=== PATIENT | female | born 1935 | race Caucasian/White ===

== ENCOUNTER → 2017-03-09 07:01 | Day surgery (SDC) | payer MEDICARE, OTHER ==
--- NOTE | 2017-03-07 22:30 | HP ---
ADMISSION HISTORY AND PHYSICAL: DATE OF ADMISSION: 03/09/17 - [facility] ATTENDING SURGEON: Dr. Danny Mayfield. (dictated by PARKER Maravilla) CHIEF COMPLAINT: Right breast lesion. HISTORY OF PRESENT ILLNESS: This is an 81-year-old female who was referred from Dr. Velázquez for evaluation of a right breast mass. This was apparently discovered on a mammogram in June of 2016. She subsequently underwent ultrasound and then a stereotactic biopsy on 07/21/16, which showed no malignant cells. She has had repeat ultrasounds, the most recent being from . This showed a multiseptated cyst in the right breast at the 10 o'clock position, approximately 10 cm from the nipple, measuring 1.1 x 0.7 x 1.3 cm. The radiologist indicated that there was some definite growth in size of the lesion compared with the last two ultrasounds. There was apparently a biopsy marker clip placed at the time of her stereotactic biopsy; however, subsequent notes indicate that this is approximately 4 cm posterior to the biopsy area. The patient has had no symptoms regarding the right breast. She has not had any prior breast biopsies and there is no family history of breast cancer. She was seen in the office by Dr. Mayfield on 02/15/17. His exam was unremarkable, with no palpable masses bilaterally in either breast, and no palpable adenopathy. He has discussed with her the options, including ongoing surveillance and/or repeat stereotactic biopsy. She understands the indications for this surgery as well as the risks, benefits, and alternatives, and potential need for additional surgery. She would like to proceed as scheduled with excision of right breast mass (following needle localization). PAST MEDICAL HISTORY: Paroxysmal atrial fibrillation (she is typically in sinus rhythm most of the time), hypertension, hyperlipidemia. PAST SURGICAL HISTORY: Bilateral total knee arthroplasty in 2003, x2 , right carpal tunnel release, bilateral cataract surgery, bilateral retinal surgeries, sinus surgery, and surgery for a hydatidiform mole. No reported surgical or anesthesia problems. CURRENT MEDICATIONS: 1. Propafenone ER 425 mg b.i.d. 2. Coumadin 2 mg 2 tablets daily on Mondays and Fridays, 3 tablets daily on all other days (the patient is instructed by Dr. Velázquez's office to hold after her 03/04/17 dose). 3. Simvastatin 20 mg daily. 4. Aldactazide 25/25 one tablet q.p.m. 5. Cozaar 100 mg daily. 6. Glucosamine chondroitin 2 to 3 tablets daily. 7. Lawrence-3 fish oil 1 tablet once daily. 8. Vitamin D 2000 IU once daily. 9. Multivitamin once daily. 10. PreserVision 1 tablet b.i.d. 11. Coenzyme Q10 200 mg daily. ALLERGIES: She reports no allergies. Dr. Velázquez's office notes indicate cough reaction from FABRICIO INH[employer]OR and airway irritation from an inhaled CEPHALOSPORIN in the past. FAMILY HISTORY: Negative for anesthesia problems, bleeding or clotting disorders. SOCIAL HISTORY: The patient is . 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 She denies tobacco use. Drinks less than one alcoholic drink per day and denies other recreational drug use. REVIEW OF SYSTEMS: General: No recent constitutional symptoms or acute illnesses. She does report about a 15-pound weight loss over the past 5 years, largely related to stress related to care of her , as well as some decreased appetite. Cardiovascular: No recent chest pain, palpitations, history of lightheadedness or syncope. She follows yearly with Dr. Read. Echocardiogram from last year was essentially normal. Respiratory: No history of asthma, chronic cough or shortness of breath. GI: No upper GI symptoms. Colonoscopy done within the past 10 years or so. She did have an episode of rectal bleeding about an year ago and has undergone sigmoidoscopy with removal of polyp by Dr. Vallejo, and with no further bleeding episodes. : No problems reported. 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 She no longer has Pap smears done. No additional symptoms reported. Endocrine: No diabetes or thyroid dysfunction. PHYSICAL EXAMINATION GENERAL: Well-nourished, somewhat obese female, in no acute distress. VITAL SIGNS: Height 63 inches, weight 190 pounds, blood pressure 104/62, pulse 58, respirations 16. HEENT: Pupils equal, round, and reactive. EOMs intact. No conjunctival pallor. Oropharynx, full upper dentures. No intraoral lesions. NECK: No lymphadenopathy, thyromegaly or masses. LUNGS: Clear to auscultation. No rales or wheezes. HEART: Regular rate and rhythm. No murmur appreciated. BREASTS: Not reexamined today. ABDOMEN: Well healed surgical scar. Soft, nontender to palpation. No palpable masses or organomegaly. GENITALIA AND RECTAL: Not done. BACK: No spinous process or CVA tenderness. EXTREMITIES: No edema. NEUROLOGICAL: Grossly intact. SKIN: Warm and dry. No suspicious rashes or lesions noted (of note, on her visit with Dr. Mayfield, she was also referred for evaluation of a skin lesion on the left shoulder area, which was subsequently excised showing basal cell carcinoma with clear margins. See separate report). That area is healing well. IMPRESSION: Right breast mass. PLAN: Excision right breast mass (after needle localization). PARKER FIELDS CC: Edgar Velázquez MD.* [id number]/[facility] #: [id number] MTDD
[~2017-03-09 07:01] MED LIST: Buffered Lidocaine 1% SYRIN* 3 ML/SYR SYRINGE INTRADERM ONE; Bupivacaine 0.5% W/EPI SDV* 30 ML VIAL ONE; Dexamethasone IV* 4 MG/ML 1 ML (4 MG) ONE; Famotidine IV* 10 MG/ML 2 ML (20 mg) ONE; Famotidine TAB* 20 MG PO ONE; KETAMINE HCL* 50 MG/ML 10 ML VIAL ONE; Lidocaine 1% INJ* 10 MG/ML 30 ML SDV ONE; Lidocaine 2% PF* 5 ML VIAL ONE; Midazolam* 1 MG/ML 5 ML VIAL (5 MG) ONE; Morphine INJ* 2 MG/ML 1 ML SYRINGE IV PRN; Ondansetron INJ* 2 MG/ML VIAL ONE; PROCHLORPERAZINE INJ 5 MG/ML 2 ML VIAL IV PRN; Propofol* 10 MG/ML 20 ML BTL IV PUSH ONE; ceFAZolin 2 GM PREMIX(*) 2 GM/50 ML BAG IVPB ONE; fentaNYL* 50 MCG/ML 2 ML VIAL (100 MCG VIAL) IV PRN; fentaNYL* 50 MCG/ML 2 ML VIAL (100 MCG VIAL) ONE; oxyCODONE/Acetamin 5/325 MG* TAB PO PRN
--- NOTE | 2017-03-09 09:00 | RAD ---
INDICATION: Recurrent right breast cyst COMPARISON: Right breast sonogram January 13, 2017; right breast mammogram July 21, 2016 TECHNIQUE: Informed consent was obtained. A routine timeout procedure was called. The right breast was prepped in usual fashion and following infiltration with lidocaine for local anesthesia a 7.5 cm Tesfaye wire was placed medially adjacent to the lesion as confirmed sonographically. A mammogram was obtained which showed that the wire had backed out slightly from the lesion and was 1 cm anterior to the lesion. The patient tolerated the procedure well. There were no procedural complications. The specimen radiograph is pending. IMPRESSION: SUCCESSFUL WIRE NEEDLE LOCALIZATION OF THE COMPLEX CYST IN THE RIGHT BREAST PRIOR TO SURGICAL EXCISION. Assessment: ACR BI-RADS Category 4: Suspicious PT Reminder: CPT II Codes: 7025F Follow-up: Biopsy [employer] recommend annual screening mammography beginning at age 40.
[2017-03-09 14:10] VITALS: BP 124/64
--- NOTE | 2017-03-10 07:12 | OP ---
DATE OF OPERATION: 03/09/17 [facility] DATE OF : 33 SURGEON: Danny Mayfield MD ANESTHESIOLOGIST: Dr. Lopes. ANESTHESIA: LMAC anesthesia. PRE-OP DIAGNOSIS: Lesion of right breast. POST-OP DIAGNOSIS: Lesion of right breast. OPERATIVE PROCEDURE: Needle localizing excision of lesion of right breast. ESTIMATED BLOOD LOSS: Less than 20 mL. DESCRIPTION OF PROCEDURE: The patient was supine on the operative table. After adequate intravenous sedation, compression stockings, Claudia Hugger warmer, and intravenous antibiotics; the right breast was prepped with antiseptic; and draped in a sterile fashion. Local infiltrative anesthesia was administered. Approximately 4 to 5 cm incision was created and a piece of breast tissue approximately 4 x 4 x 3 cm in size was removed. This seemed to me that it was a little close to the area where the mass was, so an additional piece of deep and somewhat medial tissue was removed and sent with a suture marking true margin. X- ray confirmed excision of the lesion. Hemostasis was obtained using electro-cautery, and incision was closed with 3-0 and 5-0 Vicryl followed by Steri-Strips and a gauze dressing. She tolerated the procedure well, was brought to the Recovery in good condition. No complications. No drains. Pathologic specimen as above. Sponge and instrument counts correct. CC: Danny Mayfield MD; Edgar Velázquez MD* [id number]/[facility] #: [id number] MTDD
== END | disposition home or self-care (01) ==
LOC: SDS 07:01
PROVIDERS: ATTEND Surgery
DX: N63 Unspecified lump in breast (principal); I48.2 Chronic atrial fibrillation; Z79.01 Long term (current) use of anticoagulants; I10 Essential (primary) hypertension; I35.0 Nonrheumatic aortic (valve) stenosis; I07.1 Rheumatic tricuspid insufficiency
CPT/HCPCS: 36415; 85610; 88307; G0206-RT; J0690; J1100; J2001; J2250; J2405; J2704; J3010

== ENCOUNTER 2017-07-12 09:25 | Day surgery (SDC) | payer MEDICARE, OTHER ==
--- NOTE | 2017-07-10 10:30 | HP ---
CC: Dr. Alexis Beaulieu; Dr. Bora Ayala ADMITTING HISTORY AND PHYSICAL: DATE OF ADMISSION: 07/12/17 ADMITTING DIAGNOSES: 1. Gross hematuria. 2. Calculus, left proximal ureter. PLANNED PROCEDURE: Left retrograde and left stent insertion (to be followed in the near future by s hockwave lithotripsy). SURGEON: Bora Ayala MD. HISTORY OF PRESENT ILLNESS: Rita Roque is an 81-year-old lady who I had originally evaluated for a n episode of gross hematuria. She is on Coumadin for atrial fibrillation. She had been noted to hav e a 9 mm nonobstructing left renal calculus. At this time, when she presented with recurrence of gr oss hematuria, an x-ray was obtained, which showed that the calculus had migrated into the proximal left ureter. She is now being brought in for left stent insertion and will require lithotripsy in t he near future once she is off the Coumadin. PAST MEDICAL HISTORY: 1. Atrial fibrillation. 2. Hypertension. 3. Hyperlipidemia. MEDICATIONS ON ADMISSION: Include: 1. Coumadin. 2. Aldactazide 25/25 one tablet daily. 3. Simvastatin 20 mg daily. 4. Losartan 1 tablet daily. 5. Celebrex p.r.n. ALLERGIES AND INTOLERANCES: KEFLEX. REVIEW OF SYSTEMS: She denies any chest pain or shortness of breath. There is no history of diabet es mellitus. PAST SURGICAL HISTORY: Significant for x3, appendectomy, and bilateral total knee replace ments. PHYSICAL EXAMINATION GENERAL: Reveals a pleasant elderly lady. VITAL SIGNS: Blood pressure is 134/80, pulse 76 per minute, oxygen saturation 98% on room air. LUNGS: Clear bilaterally. CARDIOVASCULAR: S1, S2. No murmurs. ABDOMEN: Soft, with mild left flank tenderness. IMPRESSION: A 81-year-old lady with recurrent gross hematuria and a 9 mm calculus which appears to have migrated into the proximal left ureter, which I suspect is the cause of the hematuria. PLAN: The plan is for left retrograde and left stent insertion and to push the calculus back into t he left kidney, to be followed by shockwave lithotripsy in the near future. [id number]/[facility] #: [id number]
[~2017-07-12 09:25] MED LIST changes: +Buffered Lidocaine 0.9% SYRIN* 5 ML/SYR SYRINGE INTRADERM ONE; -Buffered Lidocaine 1% SYRIN* 3 ML/SYR SYRINGE INTRADERM ONE; -Bupivacaine 0.5% W/EPI SDV* 30 ML VIAL ONE; +Dexamethasone IV* 4 MG/ML 1 ML (4 MG) IV SLOW PU ONE; -Dexamethasone IV* 4 MG/ML 1 ML (4 MG) ONE; +Famotidine IV* 10 MG/ML 2 ML (20 mg) IV SLOW PU ONE; -Famotidine IV* 10 MG/ML 2 ML (20 mg) ONE; -Famotidine TAB* 20 MG PO ONE; -KETAMINE HCL* 50 MG/ML 10 ML VIAL ONE; -Lidocaine 1% INJ* 10 MG/ML 30 ML SDV ONE; -Lidocaine 2% PF* 5 ML VIAL ONE; -Midazolam* 1 MG/ML 5 ML VIAL (5 MG) ONE; -Morphine INJ* 2 MG/ML 1 ML SYRINGE IV PRN; -Ondansetron INJ* 2 MG/ML VIAL ONE; -PROCHLORPERAZINE INJ 5 MG/ML 2 ML VIAL IV PRN; -Propofol* 10 MG/ML 20 ML BTL IV PUSH ONE; -ceFAZolin 2 GM PREMIX(*) 2 GM/50 ML BAG IVPB ONE; -fentaNYL* 50 MCG/ML 2 ML VIAL (100 MCG VIAL) IV PRN; -fentaNYL* 50 MCG/ML 2 ML VIAL (100 MCG VIAL) ONE; -oxyCODONE/Acetamin 5/325 MG* TAB PO PRN
[2017-07-12] MEDS ORDERED: Dexamethasone IV* 4 MG/ML 1 ML (4 MG) ONE (09:43)
[2017-07-12] MEDS ORDERED: Buffered Lidocaine 0.9% SYRIN* 5 ML/SYR SYRINGE ONE (09:43)
[2017-07-12] MEDS ORDERED: Levofloxacin 500 MG IVPREMIX(* 500 MG/100 ML BAG IVPB ONE (09:43)
[2017-07-12] MEDS ORDERED: Famotidine IV* 10 MG/ML 2 ML (20 mg) ONE (09:43)
[2017-07-12] MEDS ORDERED: fentaNYL* 50 MCG/ML 2 ML VIAL (100 MCG VIAL) IV PRN (10:58)
[2017-07-12] MEDS ORDERED: Ondansetron INJ* 2 MG/ML VIAL IV PRN (10:58)
[2017-07-12] MEDS ORDERED: oxyCODONE/Acetamin 5/325 MG* TAB PO PRN (10:58)
[2017-07-12] MEDS ORDERED: Ondansetron INJ* 2 MG/ML VIAL ONE (11:02)
[2017-07-12] MEDS ORDERED: Propofol* 10 MG/ML 20 ML BTL IV PUSH ONE (11:02)
[2017-07-12] MEDS ORDERED: Midazolam* 1 MG/ML 5 ML VIAL (5 MG) ONE (11:02)
[2017-07-12] MEDS ORDERED: Iohexol 180 (CONTRAST) 10 ML SDV IV ONE ×2 (11:02→11:24)
[2017-07-12] MEDS ORDERED: fentaNYL* 50 MCG/ML 2 ML VIAL (100 MCG VIAL) ONE ×2 (11:02→11:53)
--- NOTE | 2017-07-12 12:39 | RAD ---
INDICATION: Left retrograde examination with stent insertion COMPARISON: KUB July 06, 2017 FINDINGS: 7 seconds of fluoroscopy were provided for the urology department. Fluoroscopic spot imaging of the abdomen were obtained for operative control and show left ureteral stent placement in expected position. A calculus is noted to project over the mid to lower pole left kidney . CPT II Codes: 6045F (fluoro time doc)
[2017-07-12 13:54] VITALS: BP 136/66
[2017-07-12] MEDS ORDERED: Acetaminophen TAB* 325 MG ONE (14:16)
--- NOTE | 2017-07-13 03:14 | OP ---
CC: Alexis Beaulieu MD * DATE OF OPERATION: 07/12/17 - [facility] DATE OF : 33 SURGEON: Bora Ayala MD. ANESTHESIOLOGIST: Dr. Burkett. ANESTHESIA: Spinal. PRE-OP DIAGNOSES: 1. Gross hematuria. 2. Calculus left proximal ureter. POST-OP DIAGNOSES: 1. Gross hematuria. 2. Calculus left proximal ureter. OPERATIVE PROCEDURE: Cystoscopy, left retrograde pyelogram, left ureteral calculus manipulation and left stent insertion. COMPLICATIONS: None. POSTOPERATIVE CONDITION: Stable. STENT USED: A 6-Dominican stent left ureter. INDICATIONS: Rita Roque is an 81-year-old lady with recent history of gross hematuria. My feeling was that this was due to a calculus, which had previously been located in the lower pole of the left kidney moving into the proximal left ureter. She is now being brought in for left stent insertion and will require lithotripsy at a later date. DESCRIPTION OF PROCEDURE: After induction of spinal anesthesia, the patient was placed in dorsal lithotomy position. Sequential compression devices were in place and functioning. Initial cystoscopy revealed a normal-appearing bladder. A guidewire was introduced into the left ureter. The calculus at the level of the ureteropelvic junction was identified with mild fullness of the left collecting system. The calculus was manipulated into the lower pole and a 6-Dominican stent was introduced and positioned under fluoroscopy with good proximal and distal positioning obtained. The patient tolerated the procedure satisfactorily and was transferred back to the recovery area in stable condition. [id number]/[facility] #: [id number] MTDD
== END 2017-07-12 15:06 | disposition home or self-care (01) ==
LOC: OR 09:25
PROVIDERS: ATTEND Urology
DX: N20.1 Calculus of ureter (principal); R31.0 Gross hematuria; I48.91 Unspecified atrial fibrillation; Z79.01 Long term (current) use of anticoagulants; I10 Essential (primary) hypertension; E78.5 Hyperlipidemia, unspecified; Z88.1 Allergy status to other antibiotic agents
CPT/HCPCS: 36415; 74420; 85610; A9270-GY; C1876; J1100; J1956; J2250; J2405; J2704; J3010

== ENCOUNTER 2017-08-07 07:58 | Day surgery (SDC) | payer MEDICARE, OTHER ==
[~2017-08-07 07:58] MED LIST changes: -Dexamethasone IV* 4 MG/ML 1 ML (4 MG) IV SLOW PU ONE; -Famotidine IV* 10 MG/ML 2 ML (20 mg) IV SLOW PU ONE; +NS 0.9% 1000 ML* 1,000 ML IV SCH
[2017-08-07] MEDS ORDERED: Buffered Lidocaine 0.9% SYRIN* 5 ML/SYR SYRINGE ONE (08:19)
--- NOTE | 2017-08-07 08:48 | RAD ---
HISTORY: Shock wave lithotripsy COMPARISONS: July 06, 2017 VIEWS: Frontal views of the abdomen. FINDINGS: BOWEL: There is a nonspecific bowel gas pattern, with nondilated small bowel gas noted. CALCULI: A left ureteral stent is noted. There is a 0.5 cm calculus overlying the lower pole of the left renal parenchymal shadow. BONES AND SOFT TISSUES: Degenerative changes are noted of the spine OTHER FINDINGS: The lung bases are clear. There is no subphrenic gas. IMPRESSION: LEFT NEPHROLITHIASIS WITH A LEFT URETERAL STENT
[2017-08-07] MEDS ORDERED: Levofloxacin 500 MG IVPREMIX(* 500 MG/100 ML BAG IVPB ONE (08:56)
[2017-08-07] MEDS ORDERED: fentaNYL* 50 MCG/ML 2 ML VIAL (100 MCG VIAL) ONE (09:09)
[2017-08-07] MEDS ORDERED: Midazolam* 1 MG/ML 2 ML VIAL (2 MG) ONE (09:09)
[2017-08-07] MEDS ORDERED: DiMENhydriNATE IV* 50 MG/ML VIAL IV PUSH PRN (10:19)
[2017-08-07] MEDS ORDERED: Acetaminophen TAB* 325 MG PO PRN (10:19)
[2017-08-07] MEDS ORDERED: PROCHLORPERAZINE INJ 5 MG/ML 2 ML VIAL IV PRN (10:19)
[2017-08-07] MEDS ORDERED: Dexamethasone IV* 4 MG/ML 1 ML (4 MG) ONE (10:26)
[2017-08-07] MEDS ORDERED: Famotidine IV* 10 MG/ML 2 ML (20 mg) ONE (10:26)
[2017-08-07] MEDS ORDERED: Propofol* 10 MG/ML 20 ML BTL IV PUSH ONE (10:26)
[2017-08-07] MEDS ORDERED: Lidocaine 2% PF * 5 ML VIAL ONE (10:26)
[2017-08-07 12:39] VITALS: BP 129/51
--- NOTE | 2017-08-07 14:27 | RAD ---
INDICATION: Left renal stone COMPARISON: August 07, 2017 TECHNIQUE: A single view of the abdomen is submitted. FINDINGS: Bones: There are no acute bony findings. Soft tissues: The soft tissues appear normal. The psoas margins are sharp. Bowel gas pattern: Normal Calcifications: There is left-sided nephrolithiasis, unchanged. Other: There is left ureteral stent in expected position. IMPRESSION: LEFT-SIDED NEPHROLITHIASIS. LEFT URETERAL STENT.
--- NOTE | 2017-08-07 19:49 | OP ---
CC: Dr. Alexis Beaulieu * DATE OF OPERATION: 08/07/17 - [facility] DATE OF : 33 SURGEON: Bora Ayala MD ANESTHESIOLOGIST: Dr. Pedraza. ANESTHESIA: General. PRE-OP DIAGNOSIS: Left renal calculus. POST-OP DIAGNOSIS: Left renal calculus. OPERATIVE PROCEDURE: Shockwave lithotripsy of left renal calculus. COMPLICATIONS: None. POSTOPERATIVE CONDITION: Stable. INDICATIONS: Rita Roque is an 81-year-old lady who had been evaluated for gross hematuria secondary to a calculus, which appeared to be moving intermittently between the left ureteropelvic junction and the mid pole of the left kidney. She had undergone stent insertion and is now being brought in for lithotripsy. DESCRIPTION OF PROCEDURE: After induction of general anesthesia, patient was placed on the lithotripsy table in supine position. The calculus, which was in the mid to lower pole area of the kidney, was localized using fluoroscopy. Shockwave lithotripsy was commenced at a rate of 60 shocks per minute. After the initial 300 shocks, there was a pause in lithotripsy for several minutes in an effort to minimize any potential trauma to the kidney. Lithotripsy was then resumed. The stone was noted to be fairly hard and did not appear to fragment easily. A total of 2400 shocks were administered. My plan is to obtain a postoperative x-ray to assess the degree of fragmentation before proceeding with stent removal. Patient tolerated the procedure satisfactorily and was transferred back to the recovery area in stable condition. [id number]/[facility] #: [id number] MTDD
== END 2017-08-07 12:39 | disposition home or self-care (01) ==
LOC: OR 07:58
PROVIDERS: ATTEND Urology
DX: N20.0 Calculus of kidney (principal); Z96.0 Presence of urogenital implants; I48.91 Unspecified atrial fibrillation; Z79.01 Long term (current) use of anticoagulants; I10 Essential (primary) hypertension; E78.5 Hyperlipidemia, unspecified; Z88.1 Allergy status to other antibiotic agents
CPT/HCPCS: 74000; J1100; J1956; J2250; J2704; J3010

== ENCOUNTER 2017-08-22 10:00 | Inpatient (IN) | payer MEDICARE, OTHER ==
[2017-08-22 11:52] LABS: Hematocrit 38 % (35-47); Hemoglobin 12.9 g/dl (12.0-16.0); Mean Corpuscular HGB Conc 34 g/dl (31-36); Mean Corpuscular Hemoglobin 33 pg (27-31); Mean Corpuscular Volume 95 fL (80-97); Mean Platelet Volume 8 um3 (7.4-10.4); Red Blood Count 3.95 10^6/ul (4.0-5.4); Red Cell Distribution Width 13 % (10.5-15); White Blood Count 20.9 10^3/ul (3.5-10.8)
[2017-08-22 12:08] LABS: Albumin 3.5 g/dL (3.2-5.2); BUN/Creatinine Ratio 17.3 (8-20); C Reactive Protein 28.49 mg/L (< 5.00); Calcium 9.4 mg/dL (8.6-10.3); EGFR African American 40.9 (>60); EGFR Non-African American 31.8 (>60); Globulin 2.5 g/dL (2-4); Potassium 4.1 mmol/L (3.5-5.0); Total Bilirubin 0.9 mg/dL (0.2-1.0)
[2017-08-22] MEDS ORDERED: Ciprofloxacin 400MG IVPREMIX(* 400 MG/200 ML BAG IVPB ONE (12:35)
[2017-08-22] MEDS ORDERED: NS 0.9% 1000 ML* 2,000 ML IV ONE (12:35)
[2017-08-22] MEDS ORDERED: Acetaminophen TAB* 325 MG PO ONE (12:36)
--- NOTE | 2017-08-22 13:01 | RAD ---
CLINICAL HISTORY: Left flank pain, sepsis, history of stones COMPARISON: March 16, 2017 TECHNIQUE: Multiple contiguous axial CT scans were obtained of the abdomen and pelvis, without intravenous contrast enhancement. Coronal and sagittal multiplanar reformations are submitted for review. Oral contrast was not administered. The study is limited by the lack of intravenous contrast. This limits evaluation of the solid organs and vasculature. FINDINGS: LUNG BASES: The lung bases are clear. LIVER: The liver is normal in shape, size, contour, and attenuation. BILE DUCTS: There is no intrahepatic or extrahepatic biliary dilatation. GALLBLADDER: Multiple gallstones are noted. There is no pericholecystic inflammatory change. PANCREAS: The pancreas is normal, without mass or ductal dilatation. SPLEEN: Normal in size and appearance. UPPER GI TRACT: Evaluation of the gastrointestinal tract is limited by incomplete gastric distention. The upper GI tract is unremarkable. SMALL BOWEL AND MESENTERY: The small bowel is normal in contour, course, and caliber. There is no obstruction or dilatation. COLON: The colon is normal in contour, course, caliber. There is no pericolonic inflammatory change. ADRENALS: Normal bilaterally. KIDNEYS: There is perinephric stranding on the left with a 0.6 cm calculus of the left UPJ and moderate pelvic caliectasis. There is a second calculus of the distal left ureter measuring approximately 0.4 cm in size. BLADDER: The bladder is smooth in contour. PELVIC ORGANS: The uterus and adnexa are grossly normal for technique. AORTA: There is calcific atherosclerotic disease of the abdominal aorta and its branches, without aneurysmal dilatation IVC: Unremarkable LYMPH NODES: There is no lymphadenopathy by size criteria. ABDOMINAL WALL: There is no evidence for abdominal wall hernia. BONES AND SOFT TISSUES: Degenerative changes are noted OTHER: None IMPRESSION: 1. LEFT NEPHROLITHIASIS WITH LEFT-SIDED HYDRONEPHROSIS AND PERINEPHRIC STRANDING. THIS INCLUDES A 0.6 CM LEFT UVJ STONE AND A 0.4 CM LEFT DISTAL URETERAL STONE. 2. ATHEROSCLEROSIS. 3. CHOLELITHIASIS
[2017-08-22] MEDS ORDERED: NS 0.9% 1000 ML* 1,000 ML IV SCH (15:15)
[2017-08-22] MEDS ORDERED: Iohexol 180 (CONTRAST) 10 ML SDV IV ONE (17:14)
[2017-08-22] MEDS ORDERED: fentaNYL* 50 MCG/ML 2 ML VIAL (100 MCG VIAL) ONE (17:24)
[2017-08-22] MEDS ORDERED: Lidocaine 2% JELLY* 6 ML JELLY TOPICAL ONE (17:28)
[2017-08-22] MEDS ORDERED: Midazolam* 1 MG/ML 5 ML VIAL (5 MG) ONE (17:29)
[2017-08-22] MEDS ORDERED: Atorvastatin* 10 MG TAB PO SCH (18:00)
--- NOTE | 2017-08-22 18:22 | RAD ---
INDICATION: Left ureteral stent placement. COMPARISON: Correlation is made with a prior CT of the abdomen and pelvis from August 22, 2017. TECHNIQUE: 14 seconds of intermittent fluoroscopic guidance were provided and 5 spot films of the abdomen were centered on the left side. FINDINGS: There is partial opacification of the left renal collecting system. Subsequently there is placement of a double-J stent catheter on the left side which demonstrates normal course. IMPRESSION: INTRAOPERATIVE CONTROL FILMS. CPT II Codes: 6045F
--- NOTE | 2017-08-22 19:35 | HP ---
CC: Dr. Beaulieu; Dr. Ayala* HISTORY AND PHYSICAL: DATE OF ADMISSION: 08/22/17 TIME OF EVALUATION: 2:45 p.m. PRIMARY CARE PHYSICIAN: Dr. Beaulieu. CONSULTING UROLOGIST: Dr. Ayala. CHIEF COMPLAINT: Fever. HISTORY OF PRESENT ILLNESS: Mrs. Roque is an 81-year-old lady with a past medical history of atrial fibrillation, hypertension, hyperlipidemia and nephrolithiasis, who presented to the emergency room with complaints of fever. She is Dr. Ayala's patient and 3 weeks ago, she had a lithotripsy and also had a ureteral stent placed. She states that she was doing well and about 10 days ago, she had the stent removed and her warfarin was resumed. She states she was feeling well after that and last night she started to have left lower quadrant pain radiating to her inguinal area that she thought was related to the stone. She says the pain lasted a couple of hours. She did not take any medications and the pain resolved, so she thought that she had passed the stone. This morning she woke up with malaise, body aches, had some shaking chills and came to the emergency room for further evaluation. In the emergency room, she was found to be febrile with a temperature of 102 and the hospitalist service was consulted for further evaluation. PAST MEDICAL HISTORY: 1. Hypertension. 2. Hyperlipidemia. 3. Atrial fibrillation, on anticoagulation. 4. Nephrolithiasis. MEDICATIONS: 1. Cholecalciferol 2000 units p.o. daily. 2. CoQ10 100 mg p.o. daily. 3. Glucosamine 1500 mg p.o. b.i.d. 4. Losartan 100 mg p.o. q.a.m. 5. Multivitamin 1 tablet p.o. daily. 6. [place]-3, 1 capsule p.o. daily. 7. Propafenone 425 mg p.o. b.i.d. 8. Simvastatin 20 mg p.o. q.p.m. 9. Spironolactone/hydrochlorothiazide 25/25 mg 1 tablet p.o. q.p.m. 10. Warfarin 4 mg on Mondays, and Fridays and 6 mg on Sundays, Tuesdays, Wednesdays, , and Saturdays. ALLERGIES: With CEFUROXIME, the patient experienced shortness of breath. FAMILY HISTORY: Reviewed and noncontributory. SOCIAL HISTORY: There is no history of tobacco, alcohol, or drug use. Surrogate decision maker is her son, Danny Roque, phone number is [phone]. REVIEW OF SYSTEMS: A 14-point review of systems was performed and all the pertinent negative and positive findings are in the HPI. PHYSICAL EXAMINATION GENERAL: The patient is a pleasant elderly lady, lying in the ER stretcher, in no acute distress. VITAL SIGNS: Temperature 101.5, heart rate is 70, respiratory rate is 17, oxygen saturation is 96% on room air, blood pressure is 118/49. HEENT: Pupils are equal. Moist mucous membranes. CHEST: Breath sounds present bilaterally with bibasilar crackles. CVS: Normal S1, S2. Regular rate and rhythm. ABDOMEN: Obese. Soft, nontender, and nondistended. Bowel sounds are present. There is minimal left CVA tenderness. NEUROLOGIC: She is alert, awake, oriented x3. Able to move all 4 extremities. DIAGNOSTIC STUDIES/LAB DATA: The patient had a CBC that showed WBC of 20.9, hemoglobin of 12.9, hematocrit of 38, platelets of 163,000 with 93% neutrophils. INR is 1.85. Chemistry showed sodium of 132, potassium 4.1, chloride of 98, bicarb of 26, BUN of 27, creatinine of 1.5, glucose of 120, lactic acid is 1. LFTs are normal. Troponin is 0. CT of the abdomen and pelvis without contrast showed left nephrolithiasis with left- sided hydronephrosis and perinephric stranding. This includes a 0.6 cm left UVJ stone and a 0.4 cm left distal ureteral stone. Atherosclerosis and cholelithiasis. EKG showed sinus arrhythmia with a heart rate of 68, no ST-T changes and there is no significant change when compared to her prior EKG from 2003. ASSESSMENT AND PLAN: Mrs. Roque is an 81-year-old lady with a past medical history of atrial fibrillation, hypertension, hyperlipidemia and nephrolithiasis that presented to the emergency room with complaints of left leg pain, malaise, fever, found to have sepsis secondary to urinary tract infection. 1. Sepsis. The patient meet sepsis criteria on admission with fever and leukocytosis. Source is urinary tract infection. 2. Urinary tract infection. The patient is allergic to CEPHALOSPORIN, so she will be started empirically on ciprofloxacin. The case was discussed with Dr. Ayala and he also recommended adding a loading dose of gentamicin. With her ureteral stone causing hydronephrosis, the plan for the patient to be taken to the OR later today for cystoscopy and stent placement by Dr. Ayala. I discussed with him the fact that the patient is on warfarin and his recommendation at this point is not to stop it. The patient has RCRI score of 0 what predicts risk of 0.4% of cardiac complications. The patient is optimized for the proposed procedure. 3. Acute kidney injury. The patient's creatinine is higher than her baseline, likely a combination of sepsis and hydronephrosis. We are going to continue IV fluids and monitor her renal function. 4. Hypertension, is controlled. We are going to continue Cozaar with holding parameters. 5. Atrial fibrillation. The patient is in sinus arrhythmia now. We are going to continue propafenone and warfarin. 6. DVT prophylaxis. The patient has a score of 3 on the DVT Prophylaxis Risk Assessment Guide and she is already anticoagulated with warfarin. 7. Code status is full. TIME SPENT: Approximately 60 minutes was spent with the patient interview, medical records review, physical examination to complete admission, more than half of this time was spent [id number] with the patient in coordination of care. [id number]/[facility] #: [id number] DEVEN
[2017-08-22] MEDS ORDERED: PROPAFENONE HCL 425 MG PO SCH (21:00)
--- NOTE | 2017-08-22 21:03 | RAD ---
INDICATION: Left ureteral stent insertion. COMPARISON: Comparison is made with a prior CT of the abdomen and pelvis from August 22, 2017. TECHNIQUE: Frontal supine films of the abdomen were obtained. FINDINGS: The small bowel and colon appear nondistended. The patient is status post placement of a ureteral stent on the left side. The catheter demonstrates normal course. There is a small 4 mm calcification which projects over the lower pole of the left kidney most consistent with a renal calculus. IMPRESSION: STATUS POST LEFT URETERAL STENT INSERTION.
--- NOTE | 2017-08-22 22:27 | CONS ---
CC: Dr. Alexis Beaulieu; Bora Ayala MD* UROLOGY CONSULTATION: DATE OF CONSULTATION: 08/22/17 REQUESTING PHYSICIAN: Dr. Bry Sims. DIAGNOSES: 1. Left hydronephrosis. 2. Left ureteral calculi. HISTORY OF PRESENT ILLNESS: Rita Roque is an 81-year-old lady, who had initially undergone left stent insertion for a calculus in the left renal pelvis that was causing flank pain and gross hematuria. She had then undergone shockwave lithotripsy of the left renal calculus and had subsequently been evaluated in my office after the lithotripsy. Renal sonogram had shown fragmentation of the calculus into two pieces with no evidence of hydronephrosis and no evidence of any hematoma after the lithotripsy. She then resumed her anticoagulation and I removed the stent in my office on August 11. She was doing very well and the hope was that she would eventually pass the fragments after the lithotripsy. However, this morning she woke up with sudden onset of left flank pain and then presented to the emergency room where her temperature kayla to 102. Her white blood cell count is elevated at 20,000 and it appears that she has urinary tract infection, possible urosepsis secondary to fragments in the left ureter. Ordinarily the best course of management would be to allow these fragments to pass; however, given the possible urosepsis, this is not an available option and the kidney needs to be decompressed. The best course of decompression also ordinarily would be placement of a percutaneous left nephrostomy tube which would not involve any anesthesia other than local anesthesia and would hopefully allow the fragments to keep passing through the ureter eventually. However, she is anticoagulated and placement of a percutaneous nephrostomy tube is not a feasible option given the anticoagulation so the plan is to proceed with urgent left stent insertion. I had a detailed discussion with Mrs. Roque and her family regarding the above situation and will be going ahead with an urgent left stent insertion. Because of the possible sepsis, I am not going to try and do a ureteroscopy or try to remove or break up the fragments at the present time and she may require a repeat procedure in the near future for left ureteroscopy and stone removal and fragmentation. [id number]/[facility] #: [id number] [facility]
[2017-08-22] MEDS: Acetaminophen TAB* 325 MG PO PRN (23:08)
[2017-08-22] MEDS: Spironolactone TAB* 25 MG PO SCH (23:08)
[2017-08-22] MEDS: Hydrochlorothiazide TAB* 25 MG PO SCH (23:08)
[2017-08-22] MEDS: Atorvastatin* 10 MG TAB PO SCH (23:08)
[2017-08-22] MEDS: GLUCOSAMINE 1500 MG PO SCH (23:09)
--- NOTE | 2017-08-23 04:54 | OP ---
CC: Dr. Alexis Beaulieu; Dr. Anaid Feldman; Dr. Ayala* OPERATIVE REPORT: DATE OF OPERATION: 08/22/17 - Inpatient, room SSU 339-01. DATE OF : 34 SURGEON: Bora Ayala MD ANESTHESIOLOGIST: Jermaine Wilks MD ANESTHESIA: Intravenous sedation. PRE-OP DIAGNOSES: 1. Left hydronephrosis. 2. Calculi, left ureter. 3. Urinary infection. POST-OP DIAGNOSES: 1. Left hydronephrosis. 2. Calculi, left ureter. 3. Urinary infection. OPERATIVE PROCEDURE: Cystoscopy, left retrograde pyelogram, and left stent insertion. INDICATIONS: Rita Roque is an 81-year-old lady, who had undergone lithotripsy for left renal calculus. She was evaluated in the emergency room and was noted to have obstructing fragments in the left ureter with associated urinary tract infection. She is being brought in for urgent left stent insertion and may require ureteroscopy in the near future. COMPLICATIONS: None. POSTOPERATIVE CONDITION: Stable. STENT USED: 7-[place] stent, left ureter. DESCRIPTION OF PROCEDURE: After induction of intravenous sedation, the patient was placed in dorsal lithotomy position. Sequential compression devices were in place and functioning. Initial cystoscopy revealed normal-appearing bladder. Guidewire was introduced into the left ureter. An open-ended catheter was advanced under fluoroscopic monitoring. Resistance was encountered initially in the distal ureter and subsequently in the proximal ureter at the expected location of the calculus fragments. Limited left retrograde pyelogram revealed fullness of the left collecting system. Urine was collected from the left kidney and sent for culture. A 7-[place] stent was introduced and positioned under fluoroscopy with good proximal and distal positioning obtained. The patient tolerated the procedure satisfactorily and was transferred back to the recovery area in stable condition. [id number]/[facility] #: [id number] MTDD
[2017-08-23] MEDS ORDERED: PROPAFENONE 325 MG PO SCH ×3 (09:00→11:00)
[2017-08-23] MEDS ORDERED: Cholecalciferol TAB* 1000 UNITS PO SCH (09:00)
[2017-08-23] MEDS ORDERED: Losartan TAB* 25 MG PO SCH (09:00)
[2017-08-23] MEDS ORDERED: Multivitamins/Minerals TAB PO SCH (09:00)
[2017-08-23] MEDS: GLUCOSAMINE 1500 MG PO SCH ×2 (09:41→21:23)
[2017-08-23] MEDS: FATTY ACIDS PO SCH (09:41)
[2017-08-23] MEDS: COENZYME Q10 100 MG PO SCH (09:41)
[2017-08-23] MEDS: OMEGA PO SCH (09:41)
[2017-08-23] MEDS: Cholecalciferol TAB* 1000 UNITS PO SCH (09:43)
--- NOTE | 2017-08-23 10:43 | PN ---
Subjective Date of Service: 08/23/17 Interval History: feels weak, denies pain, temp 100.5 Objective Active Medications: Acetaminophen (Tylenol Tab*) 650 mg PO Q6H PRN PRN Reason: FEVER/PAIN Last Admin: 08/22/17 23:08 Dose: 650 mg Atorvastatin Calcium (Lipitor*) 10 mg PO QPM [facility] Last Admin: 08/22/17 23:08 Dose: 10 mg Cholecalciferol (Vitamin D Tab*) 2,000 units PO DAILY [facility] Last Admin: 08/23/17 09:43 Dose: 2,000 units Coenzyme Q10 (Coenzyme Q10 (Nf)) 1 cap PO DAILY [facility] Last Admin: 08/23/17 09:41 Dose: Not Given Fish Oil (Fish Oil (Nf)) 1,000 mg PO DAILY [facility] Last Admin: 08/23/17 09:41 Dose: Not Given Glucosamine Sulfate (Glucosamine Cap (Nf)) 1 cap PO BID [facility] Last Admin: 08/23/17 09:41 Dose: Not Given Hydrochlorothiazide (Hydrodiuril Tab*) 25 mg PO 1600 [facility] Last Admin: 08/22/17 23:08 Dose: Not Given Ciprofloxacin/Dextrose (Cipro 400 Mg Ivpremix(*)) 400 mg in 200 mls @ 200 mls/ hr IVPB Q24H [facility] Lactated Ringer's (Lactated Ringers 1000 Ml Bag*) 1,000 mls @ 150 mls/hr IV PER RATE [facility] Last Admin: 08/23/17 09:46 Dose: 150 mls/hr Sodium Chloride (Ns 0.9% 1000 Ml*) 1,000 mls @ 75 mls/hr IV PER RATE [facility] Losartan Potassium (Cozaar Tab*) 100 mg PO QAM [facility] Last Admin: 08/23/17 09:42 Dose: 100 mg Multivitamins/Minerals (Theragran/Minerals Tab*) 1 tab PO DAILY [facility] Last Admin: 08/23/17 09:43 Dose: 1 tab Propafenone HCl (Rythmol Er (Nf)) 325 mg PO BID [facility] Last Admin: 08/23/17 10:00 Dose: Not Given Spironolactone (Aldactone Tab*) 25 mg PO 1600 [facility] Last Admin: 08/22/17 23:08 Dose: Not Given Warfarin Sodium (Coumadin Tab(*)) 6 mg PO SuTuWeThSa@1700 [facility] PRN Reason: Protocol Warfarin Sodium (Coumadin Tab(*)) 4 mg PO MoFr@1700 [facility] PRN Reason: Protocol Vital Signs 08/22/17 08/22/17 08/22/17 19:40 19:45 19:46 Temperature 98.9 F 98.9 F Pulse Rate 63 63 Respiratory 20 16 20 Rate Blood Pressure 109/50 109/50 (mmHg) O2 Sat by Pulse 92 92 Oximetry 08/22/17 08/22/17 08/22/17 20:44 21:59 23:45 Temperature 98.2 F 102.0 F 100.9 F Pulse Rate 75 74 73 Respiratory 19 20 16 Rate Blood Pressure 129/53 104/52 121/47 (mmHg) O2 Sat by Pulse 94 98 95 Oximetry 08/23/17 08/23/17 08/23/17 01:40 03:45 07:36 Temperature 101.1 F 100.3 F 99.6 F Pulse Rate 71 76 73 Respiratory 16 16 16 Rate Blood Pressure 108/41 120/54 120/55 (mmHg) O2 Sat by Pulse 95 99 99 Oximetry Oxygen Devices in Use Now: None Appearance: 81 yo F in nAD, aAOx3 Eyes: No Scleral Icterus, PERRLA Ears/Nose/Mouth/Throat: NL Teeth, Lips, Gums, Mucous Membranes Moist Neck: NL Appearance and Movements; NL JVP Respiratory: Symmetrical Chest Expansion and Respiratory Effort, - - faint bibasiliar crackles Abdominal: NL Sounds; No Tenderness; No Distention, - - no CVA tenderness b/l Lymphatic: No Cervical Adenopathy Extremities: No Edema, No Clubbing, Cyanosis Skin: No Rash or Ulcers, No Nodules or Sclerosis Neurological: Alert and Oriented x 3, NL Muscle Strength and Tone Result Diagrams: 08/22/17 11:36 08/22/17 11:36 Additional Lab and Data: Lab Results 08/22/17 08/22/17 08/22/17 Range/Units 11:36 11:36 11:36 WBC 20.9 H (3.5-10.8) 10^3/ul RBC 3.95 L (4.0-5.4) 10^6/ul Hgb 12.9 (12.0-16.0) g/dl Hct 38 (35-47) % MCV 95 (80-97) fL MCH 33 H (27-31) pg MCHC 34 (31-36) g/dl RDW 13 (10.5-15) % Plt Count 163 (150-450) 10^3/ul MPV 8 (7.4-10.4) um3 Neut % (Auto) 93.5 H (38-83) % Lymph % (Auto) 1.3 L (25-47) % [place] % (Auto) 5.1 (1-9) % Eos % (Auto) 0 (0-6) % Baso % (Auto) 0.1 (0-2) % Absolute Neuts (auto) 19.5 H (1.5-7.7) 10^3/ul Absolute Lymphs (auto) 0.3 L (1.0-4.8) 10^3/ul Absolute Monos (auto) 1.1 H (0-0.8) 10^3/ul Absolute Eos (auto) 0 (0-0.6) 10^3/ul Absolute Basos (auto) 0 (0-0.2) 10^3/ul Absolute Nucleated RBC 0.01 10^3/ul Nucleated RBC % 0 INR (Anticoag Therapy) (0.89-1.11) APTT (26.0-36.3) seconds Sodium 132 L (133-145) mmol/L Potassium 4.1 (3.5-5.0) mmol/L Chloride 98 L (101-111) mmol/L Carbon Dioxide 26 (22-32) mmol/L Anion Gap 8 (2-11) mmol/L BUN 27 H (6-24) mg/dL Creatinine 1.56 H (0.51-0.95) mg/dL Est GFR ( Amer) 40.9 (>60) Est GFR (Non-Af Amer) 31.8 (>60) BUN/Creatinine Ratio 17.3 (8-20) Glucose 120 H (70-100) mg/dL Lactic Acid 1.0 (0.5-2.0) mmol/L Calcium 9.4 (8.6-10.3) mg/dL Total Bilirubin 0.90 (0.2-1.0) mg/dL AST 17 (13-39) U/L ALT 12 (7-52) U/L Alkaline Phosphatase 42 (34-104) U/L Troponin I 0.00 (<0.04) ng/mL C-Reactive Protein 28.49 H (< 5.00) mg/L Total Protein 6.0 L (6.4-8.9) g/dL Albumin 3.5 (3.2-5.2) g/dL Globulin 2.5 (2-4) g/dL Albumin/Globulin Ratio 1.4 (1-3) Lipase 33 (11.0-82.0) U/L 08/22/17 Range/Units 11:36 WBC (3.5-10.8) 10^3/ul RBC (4.0-5.4) 10^6/ul Hgb (12.0-16.0) g/dl Hct (35-47) % MCV (80-97) fL MCH (27-31) pg MCHC (31-36) g/dl RDW (10.5-15) % Plt Count (150-450) 10^3/ul MPV (7.4-10.4) um3 Neut % (Auto) (38-83) % Lymph % (Auto) (25-47) % [place] % (Auto) (1-9) % Eos % (Auto) (0-6) % Baso % (Auto) (0-2) % Absolute Neuts (auto) (1.5-7.7) 10^3/ul Absolute Lymphs (auto) (1.0-4.8) 10^3/ul Absolute Monos (auto) (0-0.8) 10^3/ul Absolute Eos (auto) (0-0.6) 10^3/ul Absolute Basos (auto) (0-0.2) 10^3/ul Absolute Nucleated RBC 10^3/ul Nucleated RBC % INR (Anticoag Therapy) 1.85 H (0.89-1.11) APTT 37.4 H (26.0-36.3) seconds Sodium (133-145) mmol/L Potassium (3.5-5.0) mmol/L Chloride (101-111) mmol/L Carbon Dioxide (22-32) mmol/L Anion Gap (2-11) mmol/L BUN (6-24) mg/dL Creatinine (0.51-0.95) mg/dL Est GFR ( Amer) (>60) Est GFR (Non-Af Amer) (>60) BUN/Creatinine Ratio (8-20) Glucose (70-100) mg/dL Lactic Acid (0.5-2.0) mmol/L Calcium (8.6-10.3) mg/dL Total Bilirubin (0.2-1.0) mg/dL AST (13-39) U/L ALT (7-52) U/L Alkaline Phosphatase (34-104) U/L Troponin I (<0.04) ng/mL C-Reactive Protein (< 5.00) mg/L Total Protein (6.4-8.9) g/dL Albumin (3.2-5.2) g/dL Globulin (2-4) g/dL Albumin/Globulin Ratio (1-3) Lipase (11.0-82.0) U/L Assess/Plan/Problems-Billing Assessment: 81 yo F with h/o a. fib on Coumadin with left hydronephrosis and obstructing stone - Patient Problems (1) Bacteremia Comment: Sepsis due to E. faecalis pyelonephritis on left and nephrolithiasis (s /p stent on 08/22/17) D/w Dr. Reyes, cont cipro for now, start Vanc TTE pending (2) Atrial fibrillation Comment: today in regular rhythm. cont Propafenone (325 mg avaliable at our pharmacy), pt is to bring her dose at 425 (3) Acute renal failure Comment: due to obstruction and pyelo cont gentle IVF F/u BMP in AM (4) DVT prophylaxis Comment: cont Coumadin (5) Nephrolithiasis Comment: s/p cysto and stent placement in L ureter by Dr. Ayala on 08/22/17, continuation of fever concerning.will get a repeat renal US (6) HTN (hypertension) Comment: holding losartan in face of sepsis Status and Disposition: OBV changed to inpatient
[2017-08-23] MEDS: NS 0.9% 1000 ML* 1,000 ML IV SCH (10:54)
[2017-08-23] MEDS: Acetaminophen TAB* 325 MG PO PRN ×3 (10:56→23:40)
[2017-08-23] MEDS ORDERED: Vancomycin(*) 1,250 MG in NS 0.9% 250 ML* 250 ML IVPB ONE (11:00)
[2017-08-23] MEDS ORDERED: Vancomycin per Pharmacy* NOTE FOLLOW UP PRN (11:13)
[2017-08-23] MEDS: MULTIVITAMINS PO SCH ×2 (14:54→21:23)
[2017-08-23] MEDS: MINERA AREDS PO SCH ×2 (14:54→21:23)
[2017-08-23] MEDS ORDERED: Ciprofloxacin 400MG IVPREMIX(* 400 MG/200 ML BAG IVPB SCH (15:00)
--- NOTE | 2017-08-23 15:23 | ECHO ---
Patient: LORAINE WHITNEY [facility] Rec#: [id number] : 1935 Date: 08/23/2017 Age: 81y Height: 160.02 cm / 63.0 in Weight: 82.1 kg / 180.9 lbs Sex: F BSA: 1.85 Room#: 339 Admit Date#: 08/22/2017 Type: Inpatient Referring: Vandana Lemons MD Reading: Bettie Lisa MD Market Editor: Moerna Cruz RHODA CC: Alexis Beaulieu CC: Wesley Reyes MD Transthoracic Echocardiogram Indication: Bacteremia BP: 120/55 HR: 67 Rhythm: NSR Findings History: Enterococcus Faecalis + blood cultures, a-fib,HTN,HLD,nephrolithiasis. Technical Comments: The study quality is good. Completed at 1335. Left Ventricle: Mild to moderate concentric left ventricular hypertrophy is observed. Global left ventricular wall motion and contractility are within normal limits. The estimated ejection fraction is 55-60%. Normal left ventricular diastolic filling is observed. Left Atrium: The left atrium is moderate to severely dilated. Right Ventricle: The right ventricular cavity size is normal. The right ventricular global systolic function is normal. Right Atrium: The right atrium is mild to moderately dilated. Aortic Valve: The aortic valve is trileaflet. The aortic valve leaflets are mildly thickened. There is mild thickening of the left coronary cusp. and calcific nodularity noted on the cusp and annulus seen on long axis and short axis parasternal views, sclerosis vs. vegetation. Mild aortic cusp sclerosis is present. There is no evidence of aortic regurgitation. The mean gradient of the aortic valve is 10 mmHg. The highest aortic valve velocity was obtained with the standard probe from the A5C view. Mitral Valve: The mitral valve leaflets are mildly thickened. There is moderate mitral regurgitation. posterior jet best seen on long axis view. There is no evidence of mitral stenosis. No vegetation is observed on the mitral valve. Tricuspid Valve: The tricuspid valve leaflets are normal. There is mild to moderate tricuspid regurgitation. There is evidence of moderate pulmonary hypertension. There is no tricuspid stenosis. No vegetation is observed on the tricuspid valve. Pulmonic Valve: The pulmonic valve appears normal. There is trace to mild pulmonic regurgitation. There is no pulmonic stenosis. Pericardium: A pericardial fat pad is visualized. Aorta: There is mild dilatation of the ascending aorta. There is no dilatation of the aortic arch. There is no dilation of the aortic root. Pulmonary Artery: The main pulmonary artery appears normal. Venous: The inferior vena cava is dilated. There is a greater than 50% respiratory change in the inferior vena cava dimension. Conclusions Mild to moderate concentric left ventricular hypertrophy is observed. Global left ventricular wall motion and contractility are within normal limits. The estimated ejection fraction is 55-60%. The right ventricular global systolic function is normal. There is mild thickening of the left coronary cusp. and calcific nodularity noted on the cusp and annulus seen on long axis and short axis parasternal views, sclerosis vs. vegetation. There is moderate mitral regurgitation. posterior jet best seen on long axis view. There is mild to moderate tricuspid regurgitation. There is trace to mild pulmonic regurgitation. There is evidence of moderate pulmonary hypertension. Compared with prior echo of 04/27/2004, aortic valve sclerosis seen then, MR was mild to moderate, ventricular function is stable. Measurements Name Value Normal Range RVIDd (AP) 2D 2.9 cm (0.9 - 2.6) RVDdMajor (2D) 3.6 cm (2.2 - 4.4) RAd ISD 4CH 5.6 cm (3.4 - 4.9) RA (A4C)W 3.2 cm (2.9 - 4.6) IVSd (2D) 1.2 cm (0.6 - 1) LVPWd (2D) 1.3 cm (0.6 - 1) LVIDd (2D) 4 cm (3.6 - 5.4) LVIDs (2D) 2.6 cm - LV FS (2D) 36 % (25 - 45) Aortic Annulus 1.8 cm (1.4 - 2.6) Ao root diameter (2D) 3.1 cm (2.1 - 3.5) Ascending Ao 3.7 cm (2.1 - 3.4) Aortic arch 1.9 cm (1.8 - 3.4) Descending Ao 0.9 cm - LA dimension (AP) 2D 4 cm (2.3 - 3.8) LAd ISD 4CH 6.5 cm (2.9 - 5.3) LA ISD 4CH W 4.2 cm (2.5 - 4.5) Name Value Normal Range LA ESV SP 4CH (A/L) 73 ml - LA ESV SP 2CH (A/L) 123 ml - LA ESV BP (A/L) 98 ml - LA ESV BP (A/L) index 52.48 ml/m2 - LA ESV SP 4CH (MOD) 67 ml - LA ESV SP 2CH (MOD) 117 ml - Name Value Normal Range MV E-wave Vmax 1.1 m/sec - MV deceleration time 196 msec - MV A-wave Vmax 0.9 m/sec - MV E:A ratio 1.21 ratio - LV septal e' Vmax 0.08 m/sec - LV lateral e' Vmax 0.09 m/sec - LV E:e' septal ratio 13.75 ratio - LV E:e' lateral ratio 12.22 ratio - Name Value Normal Range AV Vmax 2.4 m/sec - AV VTI 47 cm - AV peak gradient 23.17 mmHg - AV mean gradient 10 mmHg - LVOT diameter 2 cm - LVOT Vmax 1.5 m/sec - LVOT VTI 29.5 cm - LVOT peak gradient 9.46 mmHg - LVOT mean gradient 4.14 mmHg - ALHAJI (continuity Vmax) 2 cm2 - ALHAJI (continuity VTI) 2 cm2 - Name Value Normal Range MR Vmax 5.3 m/sec - MR VTI 172 cm - Name Value Normal Range TR Vmax 3.1 m/sec - TR peak gradient 39 mmHg - RAP 8 mmHg - RVSP 47 mmHg - IVC diameter 2.3 cm - Name Value Normal Range PV Vmax 1.2 m/sec - PV peak gradient 2.56 mmHg -
[2017-08-23] MEDS: Spironolactone TAB* 25 MG PO SCH (16:24)
[2017-08-23] MEDS: Warfarin TAB(*) 6 MG PO SCH (16:24)
[2017-08-23] MEDS: Hydrochlorothiazide TAB* 25 MG PO SCH (16:25)
[2017-08-23] MEDS: Atorvastatin* 10 MG TAB PO SCH (17:31)
[2017-08-23 18:09] LABS: Hematocrit 30 % (35-47); Hemoglobin 10.5 g/dl (12.0-16.0); Mean Corpuscular HGB Conc 35 g/dl (31-36); Mean Corpuscular Hemoglobin 33 pg (27-31); Mean Corpuscular Volume 95 fL (80-97); Mean Platelet Volume 8 um3 (7.4-10.4); Red Cell Distribution Width 13 % (10.5-15); White Blood Count 10.2 10^3/ul (3.5-10.8)
[2017-08-23 18:11] LABS: Comments Flag Yes
[2017-08-23 18:12] LABS: Add Diff/Slide Review? Manual Diff Added
[2017-08-23 18:21] LABS: BUN/Creatinine Ratio 18.3 (8-20); Calcium 8.5 mg/dL (8.6-10.3); EGFR African American 65.2 (>60); EGFR Non-African American 50.7 (>60); Potassium 3.3 mmol/L (3.5-5.0)
[2017-08-23] MEDS ORDERED: Potassium Chlor TAB* 20 MEQ TAB.ER PO ONE (18:36)
--- NOTE | 2017-08-23 18:36 | RAD ---
INDICATION: Left hydronephrosis, follow-up. COMPARISON: There is is made with a prior renal ultrasound from March 16, [address] of the abdomen and pelvis from August 22, 2017. TECHNIQUE: Multiple real-time images of the left kidney were obtained. FINDINGS: The left kidney is normal in size shape and echogenicity. The kidney measured 11.6 x 4.6 x 5.6 cm. Note is made of a ureteral stent present. No significant focal abnormality or hydronephrosis was present. There is been interval resolution of the hydronephrosis noted on the prior CT study. IMPRESSION: STATUS POST URETERAL STENT PLACEMENT. INTERVAL RESOLUTION OF LEFT HYDRONEPHROSIS.
[2017-08-23 19:31] LABS: Immature Granulocytes 4 % (0-9); Neutrophil % 86 % (38-83)
[2017-08-23 19:32] LABS: Add Path Review? YES; RBC Morphology Normal (Normal)
[2017-08-23] MEDS: PROPAFENONE HCL 425 MG PO SCH (21:23)
[2017-08-24] MEDS ORDERED: Vancomycin(*) 1,000 MG in NS 0.9% 250 ML* 250 ML IVPB SCH ×2
[2017-08-24 06:07] LABS: Hematocrit 32 % (35-47); Hemoglobin 11.2 g/dl (12.0-16.0); Mean Corpuscular HGB Conc 35 g/dl (31-36); Mean Corpuscular Hemoglobin 34 pg (27-31); Mean Corpuscular Volume 95 fL (80-97); Mean Platelet Volume 8 um3 (7.4-10.4); Red Blood Count 3.36 10^6/ul (4.0-5.4); Red Cell Distribution Width 13 % (10.5-15); White Blood Count 8.1 10^3/ul (3.5-10.8)
[2017-08-24 06:23] LABS: BUN/Creatinine Ratio 16.8 (8-20); Calcium 8.9 mg/dL (8.6-10.3); EGFR African American 67.5 (>60); EGFR Non-African American 52.5 (>60); Potassium 3.2 mmol/L (3.5-5.0)
[2017-08-24] MEDS: NS 0.9% 1000 ML* 1,000 ML IV SCH (07:47)
[2017-08-24] MEDS: COENZYME Q10 100 MG PO SCH (08:42)
[2017-08-24] MEDS: GLUCOSAMINE 1500 MG PO SCH ×2 (08:43→23:13)
[2017-08-24] MEDS: OMEGA PO SCH (08:44)
[2017-08-24] MEDS: FATTY ACIDS PO SCH (08:44)
[2017-08-24] MEDS: Cholecalciferol TAB* 1000 UNITS PO SCH (08:47)
[2017-08-24] MEDS: MULTIVITAMINS PO SCH ×2 (08:47→23:15)
[2017-08-24] MEDS: MINERA AREDS PO SCH ×2 (08:47→23:15)
[2017-08-24] MEDS: PROPAFENONE HCL 425 MG PO SCH ×2 (08:47→23:15)
[2017-08-24] MEDS ORDERED: Potassium Chlor TAB* 20 MEQ TAB.ER PO ONE (08:53)
[2017-08-24] MEDS ORDERED: MULTIVITAMINS PO SCH (09:00)
[2017-08-24] MEDS ORDERED: MINERALS AREDS2 PO SCH (09:00)
--- NOTE | 2017-08-24 12:24 | CONS ---
CONSULTATION REPORT: DATE OF CONSULT: 08/24/17 REQUESTING PHYSICIAN: Dr. Lemons. CONSULTING SERVICE: Infectious Disease. REASON FOR CONSULTATION: Enterococcal bacteremia. IMPRESSION: 1. Enterococcus faecalis in 4 of 4 blood culture bottles that was sensitive to ampicillin and vanco mycin, resistant to Levaquin and Cipro. She had an obstructed left ureteral stone and hydronephros is and now has had a ureteral stent placed. 2. Sepsis present on admission. 3. Allergy to CEFUROXIME which was inhaled and is tolerated in oral formulation before. RECOMMENDATIONS: 1. Recheck blood cultures. 2. Transesophageal echocardiogram to rule out infective endocarditis. 3. We will stop vancomycin and Cipro, start ampicillin. If there is no endocarditis, she will need a total of 2 weeks of IV antibiotics; if there is she will get 6 weeks. HISTORY OF PRESENT ILLNESS: This is an 81-year-old woman admitted with rigors and left flank pain. She was well until 08/22/17. She awoke at 2:00 in the morning with left flank pain, chills, sweats , shaking chills. She eventually called EMS who brought her to the hospital. White count was 20,00 0, creatinine 1.5. CRP 38. Urinalysis was not recorded. Blood cultures were sent, 4 of 4 bottles o f [address]. [address] of the abdomen and pelvis showed left-sided hydronephrosis and a ureteral stone and a ureterovesical junction stone. She was taken to the operating room by Dr. Ayala who put in an ureteral stent. She had had a stent changed, removed about 2 weeks earlier. She has had kidney stone disease followed by Dr. Ayala, does not remember having infection like this requiring hospitalization. She has no pain or prosthetic material present other than the ureteral stent. PAST MEDICAL HISTORY: 1. Nephrolithiasis with history of left ureteral stent removed in July 2017. 2. Hypertension. 3. Hyperlipidemia. 4. Atrial fibrillation. 5. Bilateral knee arthroplasties. MEDICATIONS: 1. Tylenol. 2. Lipitor. 3. Cholecalciferol. 4. Cipro 400 mg every 24 hours. 5. Glucosamine. 6. Hydrochlorothiazide. 7. Multivitamin. 8. Omeprazole. 9. Spironolactone. 10. Vancomycin 1 g every 12hours. 11. Warfarin. ALLERGIES: CEFUROXIME caused wheezing when she used in an inhaled formulation, but has taken it by mouth without side effects since then. FAMILY HISTORY: Parents . SOCIAL HISTORY: She lives in [place] by herself. She has no travel or sick contacts. REVIEW OF SYSTEMS: All negative to full 14-point review of systems except as noted above. PHYSICAL EXAMINATION: Vital Signs: Temperature 37.2, heart rate 55, respiratory rate 16, blood pre ssure 130/60, O2 sat 99% on room air, T-max was 38.3 overnight. In general she is awake, not in dist ress. Neurologic: She is oriented x3. Follows all commands. Moves all of her extremities. HEENT: There is no conjunctival hemorrhage. Oropharynx: Without lesions. Neck: Supple without nuchal or rigidity. Lymph Nodes: There is no cervical, supraclavicular, inguinal, axillary or epitrochlear lymphadenopathy. Heart: Regular rate and rhythm without murmurs, rubs or gallops. Lungs: Clear t o auscultation bilaterally. Abdomen: Soft, nontender, nondistended. Bowel sounds present. Skin: There is no rash or splinter hemorrhages. Musculoskeletal: There is no spine tenderness to palpat ion or joint synovitis. LABORATORY DATA: White blood cell count 8, hemoglobin 11, platelets 117,000. Creatinine is 1. Please see impressions and recommendations outlined above, which I have discussed with Dr. Lemons. [id number]/[facility] #: [id number]
[2017-08-24 13:11] LABS: Pathologist Review 9
--- NOTE | 2017-08-24 16:22 | PN ---
Subjective Date of Service: 08/24/17 Interval History: Pt feels stronger today. appetite good, no pain Objective Active Medications: Acetaminophen (Tylenol Tab*) 650 mg PO Q6H PRN PRN Reason: FEVER/PAIN Last Admin: 08/23/17 23:40 Dose: 650 mg Atorvastatin Calcium (Lipitor*) 10 mg PO QPM [facility] Last Admin: 08/23/17 17:31 Dose: 10 mg Cholecalciferol (Vitamin D Tab*) 2,000 units PO DAILY [facility] Last Admin: 08/24/17 08:47 Dose: 2,000 units Coenzyme Q10 (Coenzyme Q10 (Nf)) 1 cap PO DAILY [facility] Last Admin: 08/24/17 08:42 Dose: Not Given Fish Oil (Fish Oil (Nf)) 1,000 mg PO DAILY [facility] Last Admin: 08/24/17 08:44 Dose: Not Given Glucosamine Sulfate (Glucosamine Cap (Nf)) 1 cap PO BID [facility] Last Admin: 08/24/17 08:43 Dose: Not Given Hydrochlorothiazide (Hydrodiuril Tab*) 25 mg PO 1600 [facility] Last Admin: 08/23/17 16:25 Dose: 25 mg Ampicillin Sodium 2 gm/ Sodium (Chloride) 100 mls @ 200 mls/hr IVPB Q6H [facility] Last Admin: 08/24/17 12:28 Dose: 200 mls/hr Multivitamins/Minerals (Preservision Areds(Multivitamins/Mineral)(Nf)) 1 cap PO BID [facility] Last Admin: 08/24/17 08:47 Dose: 1 cap Pto: Propafenone Hcl (Sr 425mg Capsule) 1 dose PO BID [facility] Last Admin: 08/24/17 08:47 Dose: 1 dose Pharmacy Profile Note (Coumadin Daily Reminder*) 0 note FOLLOW UP 1700 [facility] Spironolactone (Aldactone Tab*) 25 mg PO 1600 [facility] Last Admin: 08/23/17 16:24 Dose: 25 mg Warfarin Sodium (Coumadin Tab(*)) 6 mg PO DAILY@1700 [facility] PRN Reason: Protocol Vital Signs 08/23/17 08/23/17 08/23/17 17:29 17:31 19:35 Temperature 102.2 F Pulse Rate Respiratory 24 20 Rate Blood Pressure (mmHg) O2 Sat by Pulse Oximetry 08/23/17 08/23/17 08/24/17 20:13 23:35 03:45 Temperature 98.2 F 101.0 F 97.5 F Pulse Rate 61 73 59 Respiratory 18 16 18 Rate Blood Pressure 95/41 141/67 111/54 (mmHg) O2 Sat by Pulse 98 98 99 Oximetry 08/24/17 08/24/17 08/24/17 07:32 08:00 11:29 Temperature 98.9 F 98.9 F Pulse Rate 55 69 Respiratory 16 20 16 Rate Blood Pressure 129/61 118/53 (mmHg) O2 Sat by Pulse 99 97 Oximetry 08/24/17 15:48 Temperature 100.1 F Pulse Rate 72 Respiratory 20 Rate Blood Pressure 145/66 (mmHg) O2 Sat by Pulse 99 Oximetry Oxygen Devices in Use Now: None Appearance: 81 yo f in nAD, AAOx3 Eyes: No Scleral Icterus, PERRLA Ears/Nose/Mouth/Throat: NL Teeth, Lips, Gums, Mucous Membranes Moist Neck: NL Appearance and Movements; NL JVP, Trachea Midline Respiratory: Symmetrical Chest Expansion and Respiratory Effort, Clear to Auscultation Cardiovascular: RRR, - Abdominal: NL Sounds; No Tenderness; No Distention, No Hepatosplenomegaly Lymphatic: No Cervical Adenopathy Extremities: No Edema, No Clubbing, Cyanosis Skin: No Rash or Ulcers, No Nodules or Sclerosis Neurological: Alert and Oriented x 3, NL Muscle Strength and Tone Result Diagrams: 08/24/17 05:57 08/24/17 05:57 Additional Lab and Data: Lab Results 08/22/17 08/22/17 08/22/17 Range/Units 11:36 11:36 11:36 WBC 20.9 H (3.5-10.8) 10^3/ul RBC 3.95 L (4.0-5.4) 10^6/ul Hgb 12.9 (12.0-16.0) g/dl Hct 38 (35-47) % MCV 95 (80-97) fL MCH 33 H (27-31) pg MCHC 34 (31-36) g/dl RDW 13 (10.5-15) % Plt Count 163 (150-450) 10^3/ul MPV 8 (7.4-10.4) um3 Neut % (Auto) 93.5 H (38-83) % Lymph % (Auto) 1.3 L (25-47) % Chaves % (Auto) 5.1 (1-9) % Eos % (Auto) 0 (0-6) % Baso % (Auto) 0.1 (0-2) % Absolute Neuts (auto) 19.5 H (1.5-7.7) 10^3/ul Absolute Lymphs (auto) 0.3 L (1.0-4.8) 10^3/ul Absolute Monos (auto) 1.1 H (0-0.8) 10^3/ul Absolute Eos (auto) 0 (0-0.6) 10^3/ul Absolute Basos (auto) 0 (0-0.2) 10^3/ul Absolute Nucleated RBC 0.01 10^3/ul Nucleated RBC % 0 INR (Anticoag Therapy) (0.89-1.11) APTT (26.0-36.3) seconds Sodium 132 L (133-145) mmol/L Potassium 4.1 (3.5-5.0) mmol/L Chloride 98 L (101-111) mmol/L Carbon Dioxide 26 (22-32) mmol/L Anion Gap 8 (2-11) mmol/L BUN 27 H (6-24) mg/dL Creatinine 1.56 H (0.51-0.95) mg/dL Est GFR ( Amer) 40.9 (>60) Est GFR (Non-Af Amer) 31.8 (>60) BUN/Creatinine Ratio 17.3 (8-20) Glucose 120 H (70-100) mg/dL Lactic Acid 1.0 (0.5-2.0) mmol/L Calcium 9.4 (8.6-10.3) mg/dL Total Bilirubin 0.90 (0.2-1.0) mg/dL AST 17 (13-39) U/L ALT 12 (7-52) U/L Alkaline Phosphatase 42 (34-104) U/L Troponin I 0.00 (<0.04) ng/mL C-Reactive Protein 28.49 H (< 5.00) mg/L Total Protein 6.0 L (6.4-8.9) g/dL Albumin 3.5 (3.2-5.2) g/dL Globulin 2.5 (2-4) g/dL Albumin/Globulin Ratio 1.4 (1-3) Lipase 33 (11.0-82.0) U/L // Range/Units 11:36 WBC (3.5-10.8) 10^3/ul RBC (4.0-5.4) 10^6/ul Hgb (12.0-16.0) g/dl Hct (35-47) % MCV (80-97) fL MCH (27-31) pg MCHC (31-36) g/dl RDW (10.5-15) % Plt Count (150-450) 10^3/ul MPV (7.4-10.4) um3 Neut % (Auto) (38-83) % Lymph % (Auto) (25-47) % Chaves % (Auto) (1-9) % Eos % (Auto) (0-6) % Baso % (Auto) (0-2) % Absolute Neuts (auto) (1.5-7.7) 10^3/ul Absolute Lymphs (auto) (1.0-4.8) 10^3/ul Absolute Monos (auto) (0-0.8) 10^3/ul Absolute Eos (auto) (0-0.6) 10^3/ul Absolute Basos (auto) (0-0.2) 10^3/ul Absolute Nucleated RBC 10^3/ul Nucleated RBC % INR (Anticoag Therapy) 1.85 H (0.89-1.11) APTT 37.4 H (26.0-36.3) seconds Sodium (133-145) mmol/L Potassium (3.5-5.0) mmol/L Chloride (101-111) mmol/L Carbon Dioxide (22-32) mmol/L Anion Gap (2-11) mmol/L BUN (6-24) mg/dL Creatinine (0.51-0.95) mg/dL Est GFR ( Amer) (>60) Est GFR (Non-Af Amer) (>60) BUN/Creatinine Ratio (8-20) Glucose (70-100) mg/dL Lactic Acid (0.5-2.0) mmol/L Calcium (8.6-10.3) mg/dL Total Bilirubin (0.2-1.0) mg/dL AST (13-39) U/L ALT (7-52) U/L Alkaline Phosphatase (34-104) U/L Troponin I (<0.04) ng/mL C-Reactive Protein (< 5.00) mg/L Total Protein (6.4-8.9) g/dL Albumin (3.2-5.2) g/dL Globulin (2-4) g/dL Albumin/Globulin Ratio (1-3) Lipase (11.0-82.0) U/L Assess/Plan/Problems-Billing Assessment: 81 yo F with h/o a. fib on Coumadin with left hydronephrosis and obstructing stone - Patient Problems (1) Bacteremia Comment: Sepsis due to E. faecalis pyelonephritis on left and nephrolithiasis (s /p stent on 08/22/17) D/w Dr. Reyes. appreciate ID consult. ampicillin sensitive. Switched to ampicillin today TTE showed mood MR and thickening of valves. LA scheduled for tomorrow. Blood cx repeated on 08/24/17 -pending (2) Atrial fibrillation Comment: today in regular rhythm. cont Propafenone from home 425 mg BID (3) Acute renal failure Comment: due to obstruction and pyelo resolving (4) DVT prophylaxis Comment: cont Coumadin, dose increased 6 mg daily today (5) Nephrolithiasis Comment: s/p cysto and stent placement in L ureter by Dr. yAala on 08/22/17. Repeat renal US on 08/23/17 shows resolution of hydronephrosis (6) HTN (hypertension) Comment: will restart Losartan in aM Status and Disposition: inpatient
[2017-08-24] MEDS: Hydrochlorothiazide TAB* 25 MG PO SCH (17:06)
[2017-08-24] MEDS: Warfarin TAB(*) 6 MG PO SCH (17:06)
[2017-08-24] MEDS: Spironolactone TAB* 25 MG PO SCH (17:06)
[2017-08-24] MEDS: Atorvastatin* 10 MG TAB PO SCH (17:06)
[2017-08-24] MEDS: Acetaminophen TAB* 325 MG PO PRN (17:07)
[2017-08-25 06:32] LABS: Hematocrit 32 % (35-47); Hemoglobin 11.1 g/dl (12.0-16.0); Mean Corpuscular HGB Conc 35 g/dl (31-36); Mean Corpuscular Hemoglobin 33 pg (27-31); Mean Corpuscular Volume 94 fL (80-97); Mean Platelet Volume 9 um3 (7.4-10.4); Red Blood Count 3.36 10^6/ul (4.0-5.4); Red Cell Distribution Width 13 % (10.5-15); White Blood Count 6.7 10^3/ul (3.5-10.8)
[2017-08-25 06:49] LABS: BUN/Creatinine Ratio 16.5 (8-20); Calcium 8.7 mg/dL (8.6-10.3); EGFR African American 82.3 (>60); Magnesium 1.4 mg/dL (1.9-2.7); Potassium 3.5 mmol/L (3.5-5.0)
[2017-08-25] MEDS ORDERED: Flumazenil* 0.1 MG/ML 5 ML MDV ONE (10:02)
[2017-08-25] MEDS ORDERED: Naloxone* 0.4 MG/ML 1 ML VIAL ONE (10:02)
[2017-08-25] MEDS ORDERED: Midazolam* 1 MG/ML 5 ML VIAL (5 MG) ONE (10:02)
[2017-08-25] MEDS ORDERED: fentaNYL* 50 MCG/ML 2 ML VIAL (100 MCG VIAL) ONE (10:02)
[2017-08-25] MEDS ORDERED: Lidocaine 2% VISCOUS* 15 ML UDC ONE (10:03)
[2017-08-25] MEDS ORDERED: Vancomycin Trough Check NOTE FOLLOW UP ONE (12:00)
--- NOTE | 2017-08-25 12:50 | TEE ---
Patient: LORAINE WHITNEY [facility] Rec#: [id number] : 1935 Date: 08/25/2017 Age: 81y Height: 160.02 cm / 63.0 in Weight: 82.1 kg / 180.9 lbs Sex: F BSA: 1.85 Room#: 339 Type: Inpatient Referring: Vandana Lemons MD Performing: Miguel Read MD Reading: Miguel Read MD Behavior Specialist: Yvonne Daniel RDCS Nurse: Carol Gutierrez RN CC: Alexis Beaulieu Transesophageal Echocardiogram Indication: Endocarditis BP: 122/55 HR: 62 Rhythm: NSR Findings History: Enterococcus faccalis + blood cultures, A-fib, HTN, HLD, nephrolithiasis.This MD discussed LA procedure in detail with pt [facility] r/b/a; all questions answered and pt competently provided written consent for procedure. Technical Comments: The study quality is good. Left Ventricle: The left ventricular chamber size is normal. Global left ventricular wall motion and contractility are within normal limits. There is normal left ventricular systolic function. The estimated ejection fraction is 55-60%. The assessment of diastolic function is non-diagnostic. Left Atrium: The left atrium is moderately dilated. No thrombus is visualized within the left atrium. There is no thrombus visualized in the left atrial appendage. Right Ventricle: The right ventricular cavity size is normal. The right ventricular global systolic function is normal. Right Atrium: The right atrium is mild to moderately dilated. Interatrial septum appears intact without evidence of shunting. The bubble study is negative. A patent foramen ovale is not demonstrated with color Doppler and agitated contrast. Aortic Valve: The aortic valve is trileaflet. There is no evidence of aortic regurgitation. There is no evidence of aortic stenosis. 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 Mitral Valve: The mitral valve leaflets are mildly thickened. There is mild to moderate mitral regurgitation. There are several regurgitant jets pressent. No vegetation is observed on the mitral valve. Tricuspid Valve: The tricuspid valve leaflets are normal. There is mild tricuspid regurgitation. Unable to estimate the right ventricular systolic pressure. No vegetation is observed on the tricuspid valve. Pulmonic Valve: The pulmonic valve appears normal. There is no evidence of pulmonic regurgitation. No vegetation is observed on the pulmonic valve. Pericardium: There is no significant pericardial effusion. Aorta: There is no dilatation of the ascending aorta. The aortic root is normal in size. There is plaque visualized in the descending aorta. There is mild non-mobile atherosclerotic plaque in the visualized segments of the aorta. Pulmonary Artery: The main pulmonary artery appears normal. Venous: The bicaval view was obtained and appears normal. The pulmonary veins appear normal in size. 4 of 4 visualized. The flow pattern of the pulmonary veins appear normal. LA Procedures: All standard views were attempted within the limitations of patient tolerance and safety. History and physical as well as labs were reviewed. The patient was in a fasting state. Risks and benefits of the procedure, including alternatives, were discussed and written informed consent was obtained. The patient and/or their health care agricultural sales representative expressed understanding of the procedure, risks and benefits. Baseline and continuous monitoring of blood pressure, heart rate, pulse oximetry and heart rhythm was performed throughout the procedure. The appropriate time-out procedure was performed as per [facility] protocol. The patient was placed in the left lateral decubitus position. The patient's posterior pharynx was anesthetized with 20ml of 2% viscous lidocaine. The patient received IV Midazolam with a total dose of 6 mg. The patient received IV Fentanyl with a total dose of 100 mcg. An oral bite block was inserted for protection of oral dentition. The multiplane transesophageal echocardiogram probe was inserted through the posterior oropharynx and advanced into the esophagus without difficulty. Multiple 2D images were obtained of the heart and its related structures. Color flow Doppler was used for evaluation. Spectral Doppler was also used. The atrial septum was interrogated with color flow Doppler. At the conclusion of the procedure the probe was removed with continuous suction without complications. The patient tolerated the procedure with no apparent complications. Contrast: Normal saline was used as contrast for the bubble study. Image 48. Intravenous contrast was used to help determine presence of intracardiac shunting. Conclusions There is normal left ventricular systolic function. The estimated ejection fraction is 55-60%. Global left ventricular wall motion and contractility are within normal limits. The left ventricular chamber size is normal. The left atrium is moderately dilated. The right atrium is mild to moderately dilated. A mass is visualized on the aortic valve which appears consistent with a vegetation measuring 1.1 x 1.0 cm on the aortic side of the left coronary cusp of the aortic valve. There is mild to moderate mitral regurgitation. There are several regurgitant jets pressent. There is mild tricuspid regurgitation. Since the prior transthoracic echocardiogram completed 08/23/17, there appears to be little change. Results discussed with the patient and the patient's attending physician, Dr. Lemons. Measurements Name Value Normal Range RVIDd (AP) 2D 2.88 cm (0.9 - 2.6) Ao root diameter (2D) 1.8 cm (2.1 - 3.5) Ascending Ao 3 cm (2.1 - 3.4) Name Value Normal Range MV E-wave Vmax 0.97 m/sec - MV deceleration time 79.8 msec - MV A-wave Vmax 0.73 m/sec - MV E:A ratio 1.33 ratio -
[2017-08-25] MEDS ORDERED: Gentamicin ADULT per pharmacy 1 NOTE MISC FOLLOW UP PRN (13:12)
[2017-08-25] MEDS: Cholecalciferol TAB* 1000 UNITS PO SCH (13:49)
[2017-08-25] MEDS: MULTIVITAMINS PO SCH ×2 (13:50→21:09)
[2017-08-25] MEDS: PROPAFENONE HCL 425 MG PO SCH ×2 (13:50→21:07)
[2017-08-25] MEDS: MINERA AREDS PO SCH ×2 (13:50→21:09)
[2017-08-25] MEDS: OMEGA PO SCH (14:15)
[2017-08-25] MEDS: FATTY ACIDS PO SCH (14:15)
[2017-08-25] MEDS: COENZYME Q10 100 MG PO SCH (14:15)
[2017-08-25] MEDS: GLUCOSAMINE 1500 MG PO SCH ×2 (14:15→21:08)
--- NOTE | 2017-08-25 14:51 | ED ---
Jose Odonnell Thomas, scribed for Bry Sims MD on 08/22/17 at 1307 . Dizziness - HPI Summary HPI Summary: The pt is an 81 y/o F presenting to the ED c/o dizziness characterized as lightheadedness that began this AM. The patient has a Hx of kidney stones with lithotripsy and ureteral stents performed by Dr. Ayala. She had an episode of L flank pain this AM from 02:00 to 04:00. This pain relieved and she went to bed. Her dizziness began when she woke up at 10:00. The dizziness is aggravated and alleviated by nothing. 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 In the past, she had had prior episodes of dizziness now and then and this episode is similar to her prior episodes. Pt additionally c/o nausea, abd pain, back pain, and sweats. In the ED she has a fever of 100.5 measured temporally. She says she is well-hydrated and has been drinking lots of water recently. Pt denies inability to void, chills, SOB, weight changes, CP, and palpitations. She was recently taken off of Coumadin for 2-4 weeks due to excessive blood in her urine. She took her daily medications this AM. She is accompanied by her son Danny. - History Of Current Complaint Chief Complaint: EDFlankPain Stated Complaint: LT FLANK PAIN Time Seen by Provider: 08/22/17 11:56 Hx Obtained From: Patient Onset/Duration: Still Present Timing: Constant Character: Lightheaded Aggravating Factor(s): Nothing Alleviating Factor(s): Nothing Associated Signs And Symptoms: Positive: Nausea, Fever - at 100.5 measured temporally, Other: - Abd pain, back pain, sweats; NEGATIVE: inability to void, chills, SOB, weight changes, CP, and palpitations Related History: Similar Episode/Dx as - Prior episodes of dizziness - Allergies/Home Medications Allergies/Adverse Reactions: Allergies Allergy/AdvReac Type Severity Reaction Status Date / Time Cefuroxime [From Ceftin] Allergy Shortness Verified 08/22/17 10:15 of Breath Home Medications: Home Medications Coenzyme Q10 (Ubidecarenone) [Co-Enzyme Q10] 100 mg PO DAILY 08/22/17 [History Confirmed 08/22/17] Losartan TAB* [Cozaar TAB*] 100 mg PO QAM 08/22/17 [History Confirmed 08/22/17] [place]-3 Fatty Acids [[place] III Epa+Dha] 1 cap PO DAILY 08/22/17 [History Confirmed 08/22/17] Propafenone HCl [Rythmol Sr] 425 mg PO BID 08/22/17 [History Confirmed 08/22/17] Warfarin TAB(*) [Coumadin TAB(*)] 4 mg PO MOFR 08/22/17 [History Confirmed 08/22] Warfarin TAB(*) [Coumadin TAB(*)] 6 mg PO SUTUWETHSA 08/22/17 [History Confirmed 08/22/17] PMH/Surg Hx/FS Hx/Imm Hx Previously Healthy: No Cardiovascular History: Reports: Hx Hypertension - controlled with medication, Other Cardiovascular Problems/Disorders - Hx of A-fib History: Reports: Hx Kidney Stones - LEFT SIDE Musculoskeletal History: Reports: 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 1960, 1966 [facility]. RIGHT CARPEL TUNNEL RELEASE 1977 [facility]. RETINAL TEARS LASER AND CRYO TREATMENTS-6 [id number]. RETINAL BUCKLE IMPLANT LEFT EYE 1995 [facility]. SINUS SURGERY 2000 [facility] [place]. BILATERAL KNEE REPLACEMENTS 2003 [facility] [place]. BILATERAL CATARACT 2008 [facility] [place]. EXCISION BENIGN CYST RIGHT BREAST 02/2017 [facility] [place]. LEFT STENT INSERTION 06/2017 Hx Anesthesia Reactions: No Infectious Disease History: No Infectious Disease History: Denies: Traveled Outside the [place] in Last 30 Days - Family History Known Family History: Positive: Cardiac Disease - Social History Alcohol Use: Rare Alcohol Amount: 1 monthly- maybe Substance Use Type: Reports: None Smoking Status (MU): Never Smoked Tobacco Have You Smoked in the Last Year: No Review of Systems Positive: Fever - at 100.5, Skin Diaphoresis. Negative: Chills, Other - NEGATIVE: weight changes Negative: Erythema - EYES Negative: Sore Throat Negative: Chest Pain Positive: Shortness Of Breath. Negative: Cough Positive: Abdominal Pain. Negative: Vomiting, Nausea Negative: dysuria, hematuria, other - NEGATIVE: inability to void Positive: Other - Back pain. Negative: Myalgia, Edema - legs Negative: Rash Neurological: Other - Dizziness All Other Systems Reviewed And Are Negative: Yes Physical Exam - Summary Physical Exam Summary: Constitutional: Well-developed, Well-nourished, Alert. (-) Distressed Skin: Warm, Dry HENT: Normocephalic; Atraumatic Eyes: Conjunctiva normal Neck: Musculoskeletal ROM normal neck. (-) JVD, (-) Stridor, (-) Tracheal deviation Cardio: Rhythm regular, rate normal, Heart sounds normal; Intact distal pulses; The pedal pulses are 2+ and symmetric. Radial pulses are 2+ and symmetric. (-) Murmur Pulmonary/Chest wall: Effort normal. (-) Respiratory distress, (-) Wheezes, (-) Rales Abd: There is LEFT CVA tenderness. Soft, (-) Distension, (-) Guarding, (-) Rebound Musculoskeletal: (-) Edema Lymph: (-) Cervical adenopathy Neuro: Alert, Oriented x3 Psych: Mood and affect Normal Triage Information Reviewed: Yes Vital Signs On Initial Exam: Initial Vitals Temp Pulse Resp BP Pulse Ox 98.2 F 72 18 116/58 98 08/22/17 10:04 08/22/17 10:04 08/22/17 10:04 08/22/17 10:04 08/22/17 10:04 Vital Signs Reviewed: Yes - [place] Coma Scale Coma Scale Total: 15 Diagnostics - Vital Signs Vital Signs Temp Pulse Resp BP Pulse Ox 08/22/17 10:04 98.2 F 72 18 116/58 98 - Laboratory Lab Results: Lab Results 08/22/17 08/22/17 08/22/17 Range/Units 11:36 11:36 11:36 WBC 20.9 H (3.5-10.8) 10^3/ul RBC 3.95 L (4.0-5.4) 10^6/ul Hgb 12.9 (12.0-16.0) g/dl Hct 38 (35-47) % MCV 95 (80-97) fL MCH 33 H (27-31) pg MCHC 34 (31-36) g/dl RDW 13 (10.5-15) % Plt Count 163 (150-450) 10^3/ul MPV 8 (7.4-10.4) um3 Neut % (Auto) 93.5 H (38-83) % Lymph % (Auto) 1.3 L (25-47) % Phillips % (Auto) 5.1 (1-9) % Eos % (Auto) 0 (0-6) % Baso % (Auto) 0.1 (0-2) % Absolute Neuts (auto) 19.5 H (1.5-7.7) 10^3/ul Absolute Lymphs (auto) 0.3 L (1.0-4.8) 10^3/ul Absolute Monos (auto) 1.1 H (0-0.8) 10^3/ul Absolute Eos (auto) 0 (0-0.6) 10^3/ul Absolute Basos (auto) 0 (0-0.2) 10^3/ul Absolute Nucleated RBC 0.01 10^3/ul Nucleated RBC % 0 INR (Anticoag Therapy) (0.89-1.11) APTT (26.0-36.3) seconds Sodium 132 L (133-145) mmol/L Potassium 4.1 (3.5-5.0) mmol/L Chloride 98 L (101-111) mmol/L Carbon Dioxide 26 (22-32) mmol/L Anion Gap 8 (2-11) mmol/L BUN 27 H (6-24) mg/dL Creatinine 1.56 H (0.51-0.95) mg/dL Est GFR ( Amer) 40.9 (>60) Est GFR (Non-Af Amer) 31.8 (>60) BUN/Creatinine Ratio 17.3 (8-20) Glucose 120 H (70-100) mg/dL Lactic Acid 1.0 (0.5-2.0) mmol/L Calcium 9.4 (8.6-10.3) mg/dL Total Bilirubin 0.90 (0.2-1.0) mg/dL AST 17 (13-39) U/L ALT 12 (7-52) U/L Alkaline Phosphatase 42 (34-104) U/L Troponin I 0.00 (<0.04) ng/mL C-Reactive Protein 28.49 H (< 5.00) mg/L Total Protein 6.0 L (6.4-8.9) g/dL Albumin 3.5 (3.2-5.2) g/dL Globulin 2.5 (2-4) g/dL Albumin/Globulin Ratio 1.4 (1-3) Lipase 33 (11.0-82.0) U/L 08/22/17 Range/Units 11:36 WBC (3.5-10.8) 10^3/ul RBC (4.0-5.4) 10^6/ul Hgb (12.0-16.0) g/dl Hct (35-47) % MCV (80-97) fL MCH (27-31) pg MCHC (31-36) g/dl RDW (10.5-15) % Plt Count (150-450) 10^3/ul MPV (7.4-10.4) um3 Neut % (Auto) (38-83) % Lymph % (Auto) (25-47) % Phillips % (Auto) (1-9) % Eos % (Auto) (0-6) % Baso % (Auto) (0-2) % Absolute Neuts (auto) (1.5-7.7) 10^3/ul Absolute Lymphs (auto) (1.0-4.8) 10^3/ul Absolute Monos (auto) (0-0.8) 10^3/ul Absolute Eos (auto) (0-0.6) 10^3/ul Absolute Basos (auto) (0-0.2) 10^3/ul Absolute Nucleated RBC 10^3/ul Nucleated RBC % INR (Anticoag Therapy) 1.85 H (0.89-1.11) APTT 37.4 H (26.0-36.3) seconds Sodium (133-145) mmol/L Potassium (3.5-5.0) mmol/L Chloride (101-111) mmol/L Carbon Dioxide (22-32) mmol/L Anion Gap (2-11) mmol/L BUN (6-24) mg/dL Creatinine (0.51-0.95) mg/dL Est GFR ( Amer) (>60) Est GFR (Non-Af Amer) (>60) BUN/Creatinine Ratio (8-20) Glucose (70-100) mg/dL Lactic Acid (0.5-2.0) mmol/L Calcium (8.6-10.3) mg/dL Total Bilirubin (0.2-1.0) mg/dL AST (13-39) U/L ALT (7-52) U/L Alkaline Phosphatase (34-104) U/L Troponin I (<0.04) ng/mL C-Reactive Protein (< 5.00) mg/L Total Protein (6.4-8.9) g/dL Albumin (3.2-5.2) g/dL Globulin (2-4) g/dL Albumin/Globulin Ratio (1-3) Lipase (11.0-82.0) U/L Result Diagrams: 08/22/17 11:36 08/22/17 11:36 Lab Statement: Any lab studies that have been ordered have been reviewed, and results considered in the medical decision making process. Dizzy Course/Dx - Course Assessment/Plan: The pt is an 81 y/o F presenting to the ED c/o dizziness characterized as lightheadedness that began this AM. The patient has a Hx of kidney stones with lithotripsy and ureteral stents performed by Dr. Ayala. She had an episode of L flank pain this AM from 02:00 to 04:00. This pain relieved and she went to bed. Her dizziness began when she woke up at 10:00. The dizziness is aggravated and alleviated by nothing. 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 In the past, she had had prior episodes of dizziness now and then and this episode is similar to her prior episodes. Pt additionally c/o nausea, abd pain, back pain, and sweats. In the ED she has a fever of 100.5 measured temporally. She says she is well-hydrated and has been drinking lots of water recently. Pt denies inability to void, chills, SOB, weight changes, CP, and palpitations. She was recently taken off of Coumadin for 2-4 weeks due to excessive blood in her urine. She took her daily medications this AM. She is accompanied by her son Danny. I consulted at 12:[address] Ayala, urology, who recommends IV antibiotics and a CT Abd/Pel to rule out a hematoma from the lithotripsy. I consulted with him again at 14:00 who says that he will see the patient in the hospital today and that he recommends admission. He says that if her temperature rises, he will do surgery today but otherwise he will do the surgery tomorrow. At 14:07, I consulted with him again and he says that he will do the surgery today. In the ED course the patient was given acetaminophen, ciprofloxacin, gentamicin, and IV fluids. Bloodwork shows WBC 20.9, RBC 3.95, Sodium 132, Chloride 98, BUN 27, Creatinine 1.56, CRP 28.49. UA pending at time of admission. CT Abd/Pel shows 1. LEFT NEPHROLITHIASIS WITH LEFT-SIDED HYDRONEPHROSIS AND PERINEPHRIC STRANDING. THIS INCLUDES A 0.6 CM LEFT UVJ STONE AND A 0.4 CM LEFT DISTAL URETERAL STONE. 2. ATHEROSCLEROSIS. 3. CHOLELITHIASIS. ED physician has reviewed this radiology report and agrees. The patient is diagnosed with sepsis, ureteral stone, and infected ureteral stone. I consulted with Dr. Burgos, hospitalist, who admits the patient to [facility]. Patient is agreeable to this plan. - Diagnoses Provider Diagnoses: Sepsis, infected ureteral stone, Ureteral stone - Provider Notifications Discussed Care Of Patient With: Bora Ayala Time Discussed With Above Provider: 12:39 Instructed by Provider To: Other - I consulted at 12:[address] Ayala, urology , who recommends IV antibiotics and a CT Abd/Pel to rule out a hematoma from the lithotripsy. I consulted with him again at 14:00 who says that he will see the patient in the hospital today and that he recommends admission. He says that if her temperature rises, he will do surgery today but otherwise he will do the surgery tomorrow. At 14:07, I consulted with him again and he says that he will do the surgery today. I consulted with Dr. Burgos, hospitalist, who will admit the patient to [facility] at 15:00. Discharge - Discharge Plan Condition: Fair Disposition: ADMITTED TO [facility] documentation as recorded by the Jose wetzel Thomas accurately reflects the service I personally performed and the decisions made by me, Bry Sims MD.
[2017-08-25] MEDS: Spironolactone TAB* 25 MG PO SCH (16:09)
[2017-08-25] MEDS: Warfarin TAB(*) 6 MG PO SCH (16:09)
[2017-08-25] MEDS: Hydrochlorothiazide TAB* 25 MG PO SCH (16:09)
--- NOTE | 2017-08-25 16:57 | PN ---
Subjective Date of Service: 08/25/17 Interval History: Pt is seen post LA, feels well. Objective Active Medications: Acetaminophen (Tylenol Tab*) 650 mg PO Q6H PRN PRN Reason: FEVER/PAIN Last Admin: 08/24/17 17:07 Dose: 650 mg Atorvastatin Calcium (Lipitor*) 10 mg PO QPM [facility] Last Admin: 08/24/17 17:06 Dose: 10 mg Cholecalciferol (Vitamin D Tab*) 2,000 units PO DAILY [facility] Last Admin: 08/25/17 13:49 Dose: 2,000 units Coenzyme Q10 (Coenzyme Q10 (Nf)) 1 cap PO DAILY [facility] Last Admin: 08/25/17 14:15 Dose: Not Given Fish Oil (Fish Oil (Nf)) 1,000 mg PO DAILY [facility] Last Admin: 08/25/17 14:15 Dose: Not Given Glucosamine Sulfate (Glucosamine Cap (Nf)) 1 cap PO BID [facility] Last Admin: 08/25/17 14:15 Dose: Not Given Hydrochlorothiazide (Hydrodiuril Tab*) 25 mg PO 1600 [facility] Last Admin: 08/25/17 16:09 Dose: 25 mg Ampicillin Sodium 2 gm/ Sodium (Chloride) 100 mls @ 200 mls/hr IVPB Q4HR [facility] Last Admin: 08/25/17 13:51 Dose: 200 mls/hr Gentamicin Sulfate 60 mg/ (Sodium Chloride) 101.5 mls @ 200.439 mls/hr IVPB 0230,1430 [facility] Last Admin: 08/25/17 14:37 Dose: 200.439 mls/hr Multivitamins/Minerals (Preservision Areds(Multivitamins/Mineral)(Nf)) 1 cap PO BID [facility] Last Admin: 08/25/17 13:50 Dose: 1 cap Pto: Propafenone Hcl (Sr 425mg Capsule) 1 dose PO BID [facility] Last Admin: 08/25/17 13:50 Dose: 1 dose Pharmacy Consult (Gentamicin Adult Per Pharmacy) 1 note FOLLOW UP .GENT PER PHARMACY PRN PRN Reason: PER PROTOCOL Stop: 09/08/17 13:13 Pharmacy Profile Note (Coumadin Daily Reminder*) 0 note FOLLOW UP 1700 [facility] Last Admin: 08/25/17 16:09 Dose: 1 note Pharmacy Profile Note (Gentamicin Peak Level*) 1 note FOLLOW UP ONCE ONE Stop: 08/26/17 15:01 Pharmacy Profile Note (Gentamicin Trough Level) 1 note FOLLOW UP ONCE ONE Stop: 08/26/17 14:01 Spironolactone (Aldactone Tab*) 25 mg PO 1600 [facility] Last Admin: 08/25/17 16:09 Dose: 25 mg Warfarin Sodium (Coumadin Tab(*)) 6 mg PO DAILY@1700 [facility] PRN Reason: Protocol Last Admin: 08/25/17 16:09 Dose: 6 mg Vital Signs 08/24/17 08/24/17 08/25/17 20:02 23:31 00:00 Temperature 97.8 F 98.1 F Pulse Rate 73 64 Respiratory 19 16 16 Rate Blood Pressure 134/60 134/62 (mmHg) O2 Sat by Pulse 96 98 Oximetry 08/25/17 08/25/17 08/25/17 03:57 07:22 07:50 Temperature 98.0 F 98.2 F Pulse Rate 66 61 Respiratory 16 20 18 Rate Blood Pressure 129/58 127/60 (mmHg) O2 Sat by Pulse 98 97 Oximetry 08/25/17 08/25/17 08/25/17 08:59 12:05 12:15 Temperature 98.2 F 98.1 F 98.1 F Pulse Rate 61 57 57 Respiratory 20 16 16 Rate Blood Pressure 127/60 111/52 111/52 (mmHg) O2 Sat by Pulse 97 95 95 Oximetry 08/25/17 16:02 Temperature 98.3 F Pulse Rate 60 Respiratory 21 Rate Blood Pressure 112/51 (mmHg) O2 Sat by Pulse 96 Oximetry Oxygen Devices in Use Now: None Appearance: 81 yo f in nAd, aAOx3 Eyes: No Scleral Icterus, PERRLA Ears/Nose/Mouth/Throat: NL Teeth, Lips, Gums, Mucous Membranes Moist Neck: NL Appearance and Movements; NL JVP, Trachea Midline Respiratory: Symmetrical Chest Expansion and Respiratory Effort, Clear to Auscultation Cardiovascular: NL Sounds; No Murmurs; No JVD, RRR Abdominal: NL Sounds; No Tenderness; No Distention, - - no CVa tenderness b/l Lymphatic: No Cervical Adenopathy Extremities: No Edema, No Clubbing, Cyanosis Skin: No Rash or Ulcers, No Nodules or Sclerosis Neurological: Alert and Oriented x 3, NL Muscle Strength and Tone Result Diagrams: 08/25/17 06:00 08/25/17 06:00 Additional Lab and Data: Lab Results 08/22/17 08/22/17 08/22/17 Range/Units 11:36 11:36 11:36 WBC 20.9 H (3.5-10.8) 10^3/ul RBC 3.95 L (4.0-5.4) 10^6/ul Hgb 12.9 (12.0-16.0) g/dl Hct 38 (35-47) % MCV 95 (80-97) fL MCH 33 H (27-31) pg MCHC 34 (31-36) g/dl RDW 13 (10.5-15) % Plt Count 163 (150-450) 10^3/ul MPV 8 (7.4-10.4) um3 Neut % (Auto) 93.5 H (38-83) % Lymph % (Auto) 1.3 L (25-47) % Bibb % (Auto) 5.1 (1-9) % Eos % (Auto) 0 (0-6) % Baso % (Auto) 0.1 (0-2) % Absolute Neuts (auto) 19.5 H (1.5-7.7) 10^3/ul Absolute Lymphs (auto) 0.3 L (1.0-4.8) 10^3/ul Absolute Monos (auto) 1.1 H (0-0.8) 10^3/ul Absolute Eos (auto) 0 (0-0.6) 10^3/ul Absolute Basos (auto) 0 (0-0.2) 10^3/ul Absolute Nucleated RBC 0.01 10^3/ul Nucleated RBC % 0 INR (Anticoag Therapy) (0.89-1.11) APTT (26.0-36.3) seconds Sodium 132 L (133-145) mmol/L Potassium 4.1 (3.5-5.0) mmol/L Chloride 98 L (101-111) mmol/L Carbon Dioxide 26 (22-32) mmol/L Anion Gap 8 (2-11) mmol/L BUN 27 H (6-24) mg/dL Creatinine 1.56 H (0.51-0.95) mg/dL Est GFR ( Amer) 40.9 (>60) Est GFR (Non-Af Amer) 31.8 (>60) BUN/Creatinine Ratio 17.3 (8-20) Glucose 120 H (70-100) mg/dL Lactic Acid 1.0 (0.5-2.0) mmol/L Calcium 9.4 (8.6-10.3) mg/dL Total Bilirubin 0.90 (0.2-1.0) mg/dL AST 17 (13-39) U/L ALT 12 (7-52) U/L Alkaline Phosphatase 42 (34-104) U/L Troponin I 0.00 (<0.04) ng/mL C-Reactive Protein 28.49 H (< 5.00) mg/L Total Protein 6.0 L (6.4-8.9) g/dL Albumin 3.5 (3.2-5.2) g/dL Globulin 2.5 (2-4) g/dL Albumin/Globulin Ratio 1.4 (1-3) Lipase 33 (11.0-82.0) U/L / Range/Units 11:36 WBC (3.5-10.8) 10^3/ul RBC (4.0-5.4) 10^6/ul Hgb (12.0-16.0) g/dl Hct (35-47) % MCV (80-97) fL MCH (27-31) pg MCHC (31-36) g/dl RDW (10.5-15) % Plt Count (150-450) 10^3/ul MPV (7.4-10.4) um3 Neut % (Auto) (38-83) % Lymph % (Auto) (25-47) % Bibb % (Auto) (1-9) % Eos % (Auto) (0-6) % Baso % (Auto) (0-2) % Absolute Neuts (auto) (1.5-7.7) 10^3/ul Absolute Lymphs (auto) (1.0-4.8) 10^3/ul Absolute Monos (auto) (0-0.8) 10^3/ul Absolute Eos (auto) (0-0.6) 10^3/ul Absolute Basos (auto) (0-0.2) 10^3/ul Absolute Nucleated RBC 10^3/ul Nucleated RBC % INR (Anticoag Therapy) 1.85 H (0.89-1.11) APTT 37.4 H (26.0-36.3) seconds Sodium (133-145) mmol/L Potassium (3.5-5.0) mmol/L Chloride (101-111) mmol/L Carbon Dioxide (22-32) mmol/L Anion Gap (2-11) mmol/L BUN (6-24) mg/dL Creatinine (0.51-0.95) mg/dL Est GFR ( Amer) (>60) Est GFR (Non-Af Amer) (>60) BUN/Creatinine Ratio (8-20) Glucose (70-100) mg/dL Lactic Acid (0.5-2.0) mmol/L Calcium (8.6-10.3) mg/dL Total Bilirubin (0.2-1.0) mg/dL AST (13-39) U/L ALT (7-52) U/L Alkaline Phosphatase (34-104) U/L Troponin I (<0.04) ng/mL C-Reactive Protein (< 5.00) mg/L Total Protein (6.4-8.9) g/dL Albumin (3.2-5.2) g/dL Globulin (2-4) g/dL Albumin/Globulin Ratio (1-3) Lipase (11.0-82.0) U/L Microbiology and Other Data: Microbiology 08/24/17 05:57 Aerobic Blood Culture - Preliminary Blood Venous Enterococcus Faecalis Anaerobic Blood Culture - Preliminary Enterococcus Faecalis Blood Culture - Final 08/24/17 05:56 Aerobic Blood Culture - Preliminary Blood Venous Anaerobic Blood Culture - Preliminary No Growth Day 1 Assess/Plan/Problems-Billing Assessment: 81 yo F with h/o a. fib on Coumadin with left hydronephrosis and obstructing stone - Patient Problems (1) Bacteremia Comment: Sepsis due to E. faecalis pyelonephritis on left and nephrolithiasis (s /p stent on 08/22/17) D/w Dr. Colin. appreciate ID consult. Ampicillin sensitive. LA showed mood MR and 1 cm vegetation on the aortic valve. 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 Blood cx repeated on 08/24/17 still positive (2) Atrial fibrillation Comment: today in regular rhythm. cont Propafenone from home 425 mg BID (3) Acute renal failure Comment: due to obstruction and pyelo resolved (4) Nephrolithiasis Comment: s/p cysto and stent placement in L ureter by Dr. Ayala on 08/22/17. Repeat renal US on 08/23/17 shows resolution of hydronephrosis (5) HTN (hypertension) Comment: holding Losartan , cont HCTZ, aldactone, controlled (6) DVT prophylaxis Comment: cont Coumadin, dose increased 6 mg daily on 08/24/17 Status and Disposition: inpatient
[2017-08-25] MEDS ORDERED: Warfarin TAB(*) 4 MG PO SCH (17:00)
[2017-08-25] MEDS: Atorvastatin* 10 MG TAB PO SCH (18:09)
[2017-08-25] MEDS ORDERED: Benzocaine/Menthol LOZ* 1 LOZENGE MT PRN (21:55)
[2017-08-26 08:25] LABS: Hematocrit 31 % (35-47); Hemoglobin 10.9 g/dl (12.0-16.0); Mean Corpuscular HGB Conc 35 g/dl (31-36); Mean Corpuscular Hemoglobin 33 pg (27-31); Mean Corpuscular Volume 94 fL (80-97); Mean Platelet Volume 8 um3 (7.4-10.4); Red Blood Count 3.29 10^6/ul (4.0-5.4); Red Cell Distribution Width 13 % (10.5-15)
[2017-08-26 08:34] LABS: BUN/Creatinine Ratio 16.9 (8-20); Calcium 8.5 mg/dL (8.6-10.3); EGFR African American 78.1 (>60); EGFR Non-African American 60.7 (>60); Magnesium 1.7 mg/dL (1.9-2.7); Potassium 3.5 mmol/L (3.5-5.0)
[2017-08-26] MEDS: COENZYME Q10 100 MG PO SCH (08:37)
[2017-08-26] MEDS: GLUCOSAMINE 1500 MG PO SCH ×2 (08:37→21:53)
[2017-08-26] MEDS: FATTY ACIDS PO SCH (08:38)
[2017-08-26] MEDS: OMEGA PO SCH (08:38)
[2017-08-26] MEDS: MINERA AREDS PO SCH ×2 (08:45→22:00)
[2017-08-26] MEDS: Cholecalciferol TAB* 1000 UNITS PO SCH (08:45)
[2017-08-26] MEDS: PROPAFENONE HCL 425 MG PO SCH ×2 (08:45→21:59)
[2017-08-26] MEDS: MULTIVITAMINS PO SCH ×2 (08:45→22:00)
--- NOTE | 2017-08-26 09:28 | PN ---
Subjective Date of Service: 08/26/17 Interval History: Pt feels well, wants to ambulate more. Objective Active Medications: Acetaminophen (Tylenol Tab*) 650 mg PO Q6H PRN PRN Reason: FEVER/PAIN Last Admin: 08/24/17 17:07 Dose: 650 mg Atorvastatin Calcium (Lipitor*) 10 mg PO QPM [facility] Last Admin: 08/25/17 18:09 Dose: 10 mg Cholecalciferol (Vitamin D Tab*) 2,000 units PO DAILY [facility] Last Admin: 08/26/17 08:45 Dose: 2,000 units Coenzyme Q10 (Coenzyme Q10 (Nf)) 1 cap PO DAILY [facility] Last Admin: 08/26/17 08:37 Dose: Not Given Fish Oil (Fish Oil (Nf)) 1,000 mg PO DAILY [facility] Last Admin: 08/26/17 08:38 Dose: Not Given Glucosamine Sulfate (Glucosamine Cap (Nf)) 1 cap PO BID [facility] Last Admin: 08/26/17 08:37 Dose: Not Given Hydrochlorothiazide (Hydrodiuril Tab*) 25 mg PO 1600 [facility] Last Admin: 08/25/17 16:09 Dose: 25 mg Ampicillin Sodium 2 gm/ Sodium (Chloride) 100 mls @ 200 mls/hr IVPB Q4HR [facility] Last Admin: 08/26/17 05:52 Dose: 200 mls/hr Gentamicin Sulfate 60 mg/ (Sodium Chloride) 101.5 mls @ 200.439 mls/hr IVPB 0230,1430 [facility] Last Admin: 08/26/17 02:39 Dose: 200.439 mls/hr Magnesium Oxide (Magox 400 Tab*) 800 mg PO DAILY [facility] Multivitamins/Minerals (Preservision Areds(Multivitamins/Mineral)(Nf)) 1 cap PO BID [facility] Last Admin: 08/26/17 08:45 Dose: 1 cap Pto: Propafenone Hcl (Sr 425mg Capsule) 1 dose PO BID [facility] Last Admin: 08/26/17 08:45 Dose: 1 dose Pharmacy Consult (Gentamicin Adult Per Pharmacy) 1 note FOLLOW UP .GENT PER PHARMACY PRN PRN Reason: PER PROTOCOL Stop: 09/08/17 13:13 Pharmacy Profile Note (Coumadin Daily Reminder*) 0 note FOLLOW UP 1700 [facility] Last Admin: 08/25/17 16:09 Dose: 1 note Pharmacy Profile Note (Gentamicin Peak Level*) 1 note FOLLOW UP ONCE ONE Stop: 08/26/17 15:01 Pharmacy Profile Note (Gentamicin Trough Level) 1 note FOLLOW UP ONCE ONE Stop: 08/26/17 14:01 Spironolactone (Aldactone Tab*) 25 mg PO 1600 [facility] Last Admin: 08/25/17 16:09 Dose: 25 mg Throat Lozenges (Chloraseptic Simba*) 1 simba MT Q6H PRN PRN Reason: SORE THROAT Last Admin: 08/25/17 22:48 Dose: 1 simba Warfarin Sodium (Coumadin Tab(*)) 4 mg PO MoFr@1700 [facility] PRN Reason: Protocol Warfarin Sodium (Coumadin Tab(*)) 6 mg PO SuTuWeThSa@1700 [facility] PRN Reason: Protocol Vital Signs 08/25/17 08/25/17 08/25/17 12:05 12:15 16:02 Temperature 98.1 F 98.1 F 98.3 F Pulse Rate 57 57 60 Respiratory 16 16 21 Rate Blood Pressure 111/52 111/52 112/51 (mmHg) O2 Sat by Pulse 95 95 96 Oximetry 08/25/17 08/25/17 08/26/17 19:44 21:33 00:04 Temperature 97.5 F 98.4 F Pulse Rate 69 60 Respiratory 18 16 16 Rate Blood Pressure 127/57 124/56 (mmHg) O2 Sat by Pulse 100 98 Oximetry 08/26/17 08/26/17 08/26/17 02:05 03:57 07:52 Temperature 97.9 F 97.7 F 98.2 F Pulse Rate 58 55 Respiratory 16 18 Rate Blood Pressure 134/64 128/61 (mmHg) O2 Sat by Pulse 98 98 Oximetry 08/26/17 08:00 Temperature Pulse Rate Respiratory 18 Rate Blood Pressure (mmHg) O2 Sat by Pulse Oximetry Oxygen Devices in Use Now: None Appearance: 81 yo f in nAD, aAOx3 Eyes: No Scleral Icterus, PERRLA Ears/Nose/Mouth/Throat: NL Teeth, Lips, Gums, Mucous Membranes Moist Neck: NL Appearance and Movements; NL JVP, Trachea Midline Respiratory: Symmetrical Chest Expansion and Respiratory Effort, Clear to Auscultation Cardiovascular: NL Sounds; No Murmurs; No JVD, RRR Abdominal: NL Sounds; No Tenderness; No Distention Lymphatic: No Cervical Adenopathy Extremities: No Edema, No Clubbing, Cyanosis Skin: No Rash or Ulcers Neurological: Alert and Oriented x 3, NL Muscle Strength and Tone Result Diagrams: 08/26/17 08:09 08/26/17 08:09 Additional Lab and Data: Lab Results 08/22/17 08/22/17 08/22/17 Range/Units 11:36 11:36 11:36 WBC 20.9 H (3.5-10.8) 10^3/ul RBC 3.95 L (4.0-5.4) 10^6/ul Hgb 12.9 (12.0-16.0) g/dl Hct 38 (35-47) % MCV 95 (80-97) fL MCH 33 H (27-31) pg MCHC 34 (31-36) g/dl RDW 13 (10.5-15) % Plt Count 163 (150-450) 10^3/ul MPV 8 (7.4-10.4) um3 Neut % (Auto) 93.5 H (38-83) % Lymph % (Auto) 1.3 L (25-47) % [place] % (Auto) 5.1 (1-9) % Eos % (Auto) 0 (0-6) % Baso % (Auto) 0.1 (0-2) % Absolute Neuts (auto) 19.5 H (1.5-7.7) 10^3/ul Absolute Lymphs (auto) 0.3 L (1.0-4.8) 10^3/ul Absolute Monos (auto) 1.1 H (0-0.8) 10^3/ul Absolute Eos (auto) 0 (0-0.6) 10^3/ul Absolute Basos (auto) 0 (0-0.2) 10^3/ul Absolute Nucleated RBC 0.01 10^3/ul Nucleated RBC % 0 INR (Anticoag Therapy) (0.89-1.11) APTT (26.0-36.3) seconds Sodium 132 L (133-145) mmol/L Potassium 4.1 (3.5-5.0) mmol/L Chloride 98 L (101-111) mmol/L Carbon Dioxide 26 (22-32) mmol/L Anion Gap 8 (2-11) mmol/L BUN 27 H (6-24) mg/dL Creatinine 1.56 H (0.51-0.95) mg/dL Est GFR ( Amer) 40.9 (>60) Est GFR (Non-Af Amer) 31.8 (>60) BUN/Creatinine Ratio 17.3 (8-20) Glucose 120 H (70-100) mg/dL Lactic Acid 1.0 (0.5-2.0) mmol/L Calcium 9.4 (8.6-10.3) mg/dL Total Bilirubin 0.90 (0.2-1.0) mg/dL AST 17 (13-39) U/L ALT 12 (7-52) U/L Alkaline Phosphatase 42 (34-104) U/L Troponin I 0.00 (<0.04) ng/mL C-Reactive Protein 28.49 H (< 5.00) mg/L Total Protein 6.0 L (6.4-8.9) g/dL Albumin 3.5 (3.2-5.2) g/dL Globulin 2.5 (2-4) g/dL Albumin/Globulin Ratio 1.4 (1-3) Lipase 33 (11.0-82.0) U/L 08/22/17 Range/Units 11:36 WBC (3.5-10.8) 10^3/ul RBC (4.0-5.4) 10^6/ul Hgb (12.0-16.0) g/dl Hct (35-47) % MCV (80-97) fL MCH (27-31) pg MCHC (31-36) g/dl RDW (10.5-15) % Plt Count (150-450) 10^3/ul MPV (7.4-10.4) um3 Neut % (Auto) (38-83) % Lymph % (Auto) (25-47) % [place] % (Auto) (1-9) % Eos % (Auto) (0-6) % Baso % (Auto) (0-2) % Absolute Neuts (auto) (1.5-7.7) 10^3/ul Absolute Lymphs (auto) (1.0-4.8) 10^3/ul Absolute Monos (auto) (0-0.8) 10^3/ul Absolute Eos (auto) (0-0.6) 10^3/ul Absolute Basos (auto) (0-0.2) 10^3/ul Absolute Nucleated RBC 10^3/ul Nucleated RBC % INR (Anticoag Therapy) 1.85 H (0.89-1.11) APTT 37.4 H (26.0-36.3) seconds Sodium (133-145) mmol/L Potassium (3.5-5.0) mmol/L Chloride (101-111) mmol/L Carbon Dioxide (22-32) mmol/L Anion Gap (2-11) mmol/L BUN (6-24) mg/dL Creatinine (0.51-0.95) mg/dL Est GFR ( Amer) (>60) Est GFR (Non-Af Amer) (>60) BUN/Creatinine Ratio (8-20) Glucose (70-100) mg/dL Lactic Acid (0.5-2.0) mmol/L Calcium (8.6-10.3) mg/dL Total Bilirubin (0.2-1.0) mg/dL AST (13-39) U/L ALT (7-52) U/L Alkaline Phosphatase (34-104) U/L Troponin I (<0.04) ng/mL C-Reactive Protein (< 5.00) mg/L Total Protein (6.4-8.9) g/dL Albumin (3.2-5.2) g/dL Globulin (2-4) g/dL Albumin/Globulin Ratio (1-3) Lipase (11.0-82.0) U/L Microbiology and Other Data: Microbiology 08/24/17 05:57 Aerobic Blood Culture - Preliminary Blood Venous Enterococcus Faecalis Anaerobic Blood Culture - Preliminary Enterococcus Faecalis Blood Culture - Final 08/24/17 05:56 Aerobic Blood Culture - Preliminary Blood Venous Anaerobic Blood Culture - Preliminary No Growth Day 1 Assess/Plan/Problems-Billing Assessment: 81 yo F with h/o a. fib on Coumadin with left hydronephrosis and obstructing stone - Patient Problems (1) Bacteremia Comment: Sepsis due to E. faecalis pyelonephritis on left and nephrolithiasis (s /p stent on 08/22/17) D/w Dr. Colin. appreciate ID consult. Ampicillin sensitive. LA showed mod MR and 1 cm vegetation on the aortic valve. Dr. Colin aware of the dx of endocarditis and added gentamycin to pt's tx on 08/25/17 Blood cx repeated on 08/24/17 still positive, repeat blood cx orderd for (2) Atrial fibrillation Comment: today in regular rhythm. cont Propafenone from home 425 mg BID (3) Acute renal failure Comment: due to obstruction and pyelo resolved (4) Nephrolithiasis Comment: s/p cysto and stent placement in L ureter by Dr. Ayala on 08/22/17. Repeat renal US on 08/23/17 shows resolution of hydronephrosis (5) HTN (hypertension) Comment: holding Losartan , cont HCTZ, aldactone, controlled (6) DVT prophylaxis Comment: cont Coumadin, dose back to home dose. Status and Disposition: inpatient
[2017-08-26] MEDS: Magnesium Oxide TAB* 400 MG PO SCH (10:09)
[2017-08-26] MEDS: Warfarin TAB(*) 6 MG PO SCH ×2 (10:13→16:35)
[2017-08-26] MEDS ORDERED: Gentamicin Trough Level 1 NOTE MISC FOLLOW UP ONE (14:00)
[2017-08-26] MEDS ORDERED: Gentamicin PEAK LEVEL* 1 NOTE MISC FOLLOW UP ONE (15:00)
[2017-08-26] MEDS: Spironolactone TAB* 25 MG PO SCH (16:35)
[2017-08-26] MEDS: Hydrochlorothiazide TAB* 25 MG PO SCH (16:35)
[2017-08-26] MEDS: Atorvastatin* 10 MG TAB PO SCH (16:35)
[2017-08-27] MEDS: MULTIVITAMINS PO SCH ×2 (09:20→20:29)
[2017-08-27] MEDS: Magnesium Oxide TAB* 400 MG PO SCH (09:20)
[2017-08-27] MEDS: MINERA AREDS PO SCH ×2 (09:20→20:29)
[2017-08-27] MEDS: Cholecalciferol TAB* 1000 UNITS PO SCH (09:20)
[2017-08-27] MEDS: GLUCOSAMINE 1500 MG PO SCH ×2 (09:21→21:48)
[2017-08-27] MEDS: COENZYME Q10 100 MG PO SCH (09:21)
[2017-08-27] MEDS: PROPAFENONE HCL 425 MG PO SCH ×2 (09:22→20:28)
[2017-08-27] MEDS: FATTY ACIDS PO SCH (09:22)
[2017-08-27] MEDS: OMEGA PO SCH (09:22)
--- NOTE | 2017-08-27 10:32 | PN ---
Subjective Date of Service: 08/27/17 Interval History: Pt feels well, no pain. Upset about the need to stay in hospital or STR for the next 6 weeks Objective Active Medications: Acetaminophen (Tylenol Tab*) 650 mg PO Q6H PRN PRN Reason: FEVER/PAIN Last Admin: 08/24/17 17:07 Dose: 650 mg Atorvastatin Calcium (Lipitor*) 10 mg PO QPM [facility] Last Admin: 08/26/17 16:35 Dose: 10 mg Cholecalciferol (Vitamin D Tab*) 2,000 units PO DAILY [facility] Last Admin: 08/27/17 09:20 Dose: 2,000 units Coenzyme Q10 (Coenzyme Q10 (Nf)) 1 cap PO DAILY [facility] Last Admin: 08/27/17 09:21 Dose: Not Given Fish Oil (Fish Oil (Nf)) 1,000 mg PO DAILY [facility] Last Admin: 08/27/17 09:22 Dose: Not Given Glucosamine Sulfate (Glucosamine Cap (Nf)) 1 cap PO BID [facility] Last Admin: 08/27/17 09:21 Dose: Not Given Hydrochlorothiazide (Hydrodiuril Tab*) 25 mg PO 1600 [facility] Last Admin: 08/26/17 16:35 Dose: 25 mg Ampicillin Sodium 2 gm/ Sodium (Chloride) 100 mls @ 200 mls/hr IVPB Q4HR [facility] Last Admin: 08/27/17 10:22 Dose: 200 mls/hr Gentamicin Sulfate 80 mg/ (Sodium Chloride) 102 mls @ 204 mls/hr IVPB Q24H [facility] Last Admin: 08/27/17 07:28 Dose: 204 mls/hr Magnesium Oxide (Magox 400 Tab*) 800 mg PO DAILY [facility] Last Admin: 08/27/17 09:20 Dose: 800 mg Multivitamins/Minerals (Preservision Areds(Multivitamins/Mineral)(Nf)) 1 cap PO BID [facility] Last Admin: 08/27/17 09:20 Dose: 1 cap Pto: Propafenone Hcl (Sr 425mg Capsule) 1 dose PO BID [facility] Last Admin: 08/27/17 09:22 Dose: 1 dose Pharmacy Consult (Gentamicin Adult Per Pharmacy) 1 note FOLLOW UP .GENT PER PHARMACY PRN PRN Reason: PER PROTOCOL Stop: 09/08/17 13:13 Pharmacy Profile Note (Coumadin Daily Reminder*) 0 note FOLLOW UP 1700 [facility] Last Admin: 08/26/17 16:37 Dose: 1 note Pharmacy Profile Note (Gentamicin Trough Level) 1 note FOLLOW UP 08 ONE Stop: 08/29/17 08:01 Pharmacy Profile Note (Gentamicin Peak Level*) 1 note FOLLOW UP 899 [facility] Stop: 08/29/17 09:01 Spironolactone (Aldactone Tab*) 25 mg PO 1600 [facility] Last Admin: 08/26/17 16:35 Dose: 25 mg Throat Lozenges (Chloraseptic Simba*) 1 simba MT Q6H PRN PRN Reason: SORE THROAT Last Admin: 08/25/17 22:48 Dose: 1 simba Warfarin Sodium (Coumadin Tab(*)) 4 mg PO MoFr@1700 [facility] PRN Reason: Protocol Warfarin Sodium (Coumadin Tab(*)) 6 mg PO SuTuWeThSa@1700 [facility] PRN Reason: Protocol Last Admin: 08/26/17 16:35 Dose: 6 mg Vital Signs 08/26/17 08/26/17 08/26/17 11:49 15:13 19:49 Temperature 97.8 F 98.2 F 98.1 F Pulse Rate 77 63 65 Respiratory 12 16 16 Rate Blood Pressure 132/69 123/57 132/67 (mmHg) O2 Sat by Pulse 97 97 97 Oximetry 08/26/17 08/27/17 08/27/17 20:10 00:04 03:09 Temperature 98.2 F 99.0 F Pulse Rate 65 57 Respiratory 16 18 16 Rate Blood Pressure 146/66 122/48 (mmHg) O2 Sat by Pulse 97 96 Oximetry 08/27/17 08/27/17 07:31 07:56 Temperature 97.8 F Pulse Rate 52 Respiratory 16 16 Rate Blood Pressure 125/57 (mmHg) O2 Sat by Pulse 97 Oximetry Oxygen Devices in Use Now: None Appearance: 81 yo F in nAD, AAOx3 Eyes: No Scleral Icterus, PERRLA Ears/Nose/Mouth/Throat: NL Teeth, Lips, Gums, Mucous Membranes Moist Neck: NL Appearance and Movements; NL JVP, Trachea Midline Respiratory: Symmetrical Chest Expansion and Respiratory Effort, Clear to Auscultation Cardiovascular: NL Sounds; No Murmurs; No JVD, RRR Abdominal: NL Sounds; No Tenderness; No Distention Lymphatic: No Cervical Adenopathy Extremities: No Edema, No Clubbing, Cyanosis Skin: No Rash or Ulcers, No Nodules or Sclerosis Neurological: Alert and Oriented x 3, NL Muscle Strength and Tone Result Diagrams: 08/26/17 08:09 08/26/17 08:09 Additional Lab and Data: Lab Results 08/22/17 08/22/17 08/22/17 Range/Units 11:36 11:36 11:36 WBC 20.9 H (3.5-10.8) 10^3/ul RBC 3.95 L (4.0-5.4) 10^6/ul Hgb 12.9 (12.0-16.0) g/dl Hct 38 (35-47) % MCV 95 (80-97) fL MCH 33 H (27-31) pg MCHC 34 (31-36) g/dl RDW 13 (10.5-15) % Plt Count 163 (150-450) 10^3/ul MPV 8 (7.4-10.4) um3 Neut % (Auto) 93.5 H (38-83) % Lymph % (Auto) 1.3 L (25-47) % [place] % (Auto) 5.1 (1-9) % Eos % (Auto) 0 (0-6) % Baso % (Auto) 0.1 (0-2) % Absolute Neuts (auto) 19.5 H (1.5-7.7) 10^3/ul Absolute Lymphs (auto) 0.3 L (1.0-4.8) 10^3/ul Absolute Monos (auto) 1.1 H (0-0.8) 10^3/ul Absolute Eos (auto) 0 (0-0.6) 10^3/ul Absolute Basos (auto) 0 (0-0.2) 10^3/ul Absolute Nucleated RBC 0.01 10^3/ul Nucleated RBC % 0 INR (Anticoag Therapy) (0.89-1.11) APTT (26.0-36.3) seconds Sodium 132 L (133-145) mmol/L Potassium 4.1 (3.5-5.0) mmol/L Chloride 98 L (101-111) mmol/L Carbon Dioxide 26 (22-32) mmol/L Anion Gap 8 (2-11) mmol/L BUN 27 H (6-24) mg/dL Creatinine 1.56 H (0.51-0.95) mg/dL Est GFR ( Amer) 40.9 (>60) Est GFR (Non-Af Amer) 31.8 (>60) BUN/Creatinine Ratio 17.3 (8-20) Glucose 120 H (70-100) mg/dL Lactic Acid 1.0 (0.5-2.0) mmol/L Calcium 9.4 (8.6-10.3) mg/dL Total Bilirubin 0.90 (0.2-1.0) mg/dL AST 17 (13-39) U/L ALT 12 (7-52) U/L Alkaline Phosphatase 42 (34-104) U/L Troponin I 0.00 (<0.04) ng/mL C-Reactive Protein 28.49 H (< 5.00) mg/L Total Protein 6.0 L (6.4-8.9) g/dL Albumin 3.5 (3.2-5.2) g/dL Globulin 2.5 (2-4) g/dL Albumin/Globulin Ratio 1.4 (1-3) Lipase 33 (11.0-82.0) U/L 08/22/17 Range/Units 11:36 WBC (3.5-10.8) 10^3/ul RBC (4.0-5.4) 10^6/ul Hgb (12.0-16.0) g/dl Hct (35-47) % MCV (80-97) fL MCH (27-31) pg MCHC (31-36) g/dl RDW (10.5-15) % Plt Count (150-450) 10^3/ul MPV (7.4-10.4) um3 Neut % (Auto) (38-83) % Lymph % (Auto) (25-47) % [place] % (Auto) (1-9) % Eos % (Auto) (0-6) % Baso % (Auto) (0-2) % Absolute Neuts (auto) (1.5-7.7) 10^3/ul Absolute Lymphs (auto) (1.0-4.8) 10^3/ul Absolute Monos (auto) (0-0.8) 10^3/ul Absolute Eos (auto) (0-0.6) 10^3/ul Absolute Basos (auto) (0-0.2) 10^3/ul Absolute Nucleated RBC 10^3/ul Nucleated RBC % INR (Anticoag Therapy) 1.85 H (0.89-1.11) APTT 37.4 H (26.0-36.3) seconds Sodium (133-145) mmol/L Potassium (3.5-5.0) mmol/L Chloride (101-111) mmol/L Carbon Dioxide (22-32) mmol/L Anion Gap (2-11) mmol/L BUN (6-24) mg/dL Creatinine (0.51-0.95) mg/dL Est GFR ( Amer) (>60) Est GFR (Non-Af Amer) (>60) BUN/Creatinine Ratio (8-20) Glucose (70-100) mg/dL Lactic Acid (0.5-2.0) mmol/L Calcium (8.6-10.3) mg/dL Total Bilirubin (0.2-1.0) mg/dL AST (13-39) U/L ALT (7-52) U/L Alkaline Phosphatase (34-104) U/L Troponin I (<0.04) ng/mL C-Reactive Protein (< 5.00) mg/L Total Protein (6.4-8.9) g/dL Albumin (3.2-5.2) g/dL Globulin (2-4) g/dL Albumin/Globulin Ratio (1-3) Lipase (11.0-82.0) U/L Microbiology and Other Data: Microbiology 08/24/17 05:57 Aerobic Blood Culture - Preliminary Blood Venous Enterococcus Faecalis Anaerobic Blood Culture - Preliminary Enterococcus Faecalis Blood Culture - Final 08/24/17 05:56 Aerobic Blood Culture - Preliminary Blood Venous Anaerobic Blood Culture - Preliminary No Growth Day 1 Assess/Plan/Problems-Billing Assessment: 81 yo F with h/o a. fib on Coumadin with left hydronephrosis and obstructing stone - Patient Problems (1) Bacteremia Comment: Sepsis due to E. faecalis pyelonephritis on left and nephrolithiasis (s /p stent on 08/22/17) D/w Dr. Colin. appreciate ID consult. Ampicillin sensitive. LA showed mod MR and 1 cm vegetation on the aortic valve. Dr. Colin aware of the dx of endocarditis and added gentamycin to pt's tx on 08/25/17 Blood cx repeated on 08/24/17 still positive, repeat blood cx from 08/27/17 pending (2) Atrial fibrillation Comment: today in regular rhythm. cont Propafenone from home 425 mg BID (3) Acute renal failure Comment: due to obstruction and pyelo resolved (4) Nephrolithiasis Comment: s/p cysto and stent placement in L ureter by Dr. Ayala on 08/22/17. Repeat renal US on 08/23/17 shows resolution of hydronephrosis (5) HTN (hypertension) Comment: holding Losartan , cont HCTZ, aldactone, controlled (6) DVT prophylaxis Comment: cont Coumadin, dose back to home dose. Status and Disposition: inpatient
[2017-08-27] MEDS: Spironolactone TAB* 25 MG PO SCH (16:28)
[2017-08-27] MEDS: Warfarin TAB(*) 6 MG PO SCH (16:28)
[2017-08-27] MEDS: Hydrochlorothiazide TAB* 25 MG PO SCH (16:28)
[2017-08-27] MEDS: Atorvastatin* 10 MG TAB PO SCH (18:27)
[2017-08-28 07:04] LABS: BUN/Creatinine Ratio 15.1 (8-20); Calcium 9.2 mg/dL (8.6-10.3); EGFR African American 63.8 (>60); EGFR Non-African American 49.6 (>60); Magnesium 1.7 mg/dL (1.9-2.7); Potassium 3.6 mmol/L (3.5-5.0)
[2017-08-28] MEDS ORDERED: JOINT SOOTHER PO SCH (09:00)
[2017-08-28] MEDS ORDERED: [UNRECOGNIZED DRUG - OTHER] PO SCH (09:00)
[2017-08-28] MEDS: Magnesium Oxide TAB* 400 MG PO SCH (09:19)
[2017-08-28] MEDS: Cholecalciferol TAB* 1000 UNITS PO SCH (09:19)
[2017-08-28] MEDS: PROPAFENONE HCL 425 MG PO SCH (09:20)
[2017-08-28] MEDS: MULTIVITAMINS PO SCH (09:20)
[2017-08-28] MEDS: MINERA AREDS PO SCH (09:20)
[2017-08-28] MEDS: COENZYME Q10 100 MG PO SCH (09:22)
[2017-08-28] MEDS ORDERED: Magnesium Sulfate 2 GM IV* 2 GM/50 ML BAG IVPB ONE (09:30)
[2017-08-28 12:35] VITALS: BP 133/66
--- NOTE | 2017-08-28 13:15 | PN ---
Progress Note - Progress Note Date of Service: 08/28/17 SOAP: Subjective: CC: infective endocarditis HPI: 81 year old woman admitted with left hydronephrosis due to obstructing ureteral stone s/p stent placement. Persistently positive BC, LA showed Ao valve vegetation. Fever resolved. No rash or diarrhea, no change in hearing or balance. Objective: [] Vital Signs Temp 37.4 C 08/28/17 11:29 Pulse 59 08/28/17 11:29 Resp 16 08/28/17 11:29 BP 133/66 08/28/17 11:29 Pulse Ox 97 08/28/17 11:29 Intake & Output 08/27/17 08/28/17 08/28/17 18:59 06:59 18:59 Intake Total 1641 470 560 Output Total 1000 1150 200 Balance 641 -680 360 Intake: IVPB 441 ABX - GENTAMYCIN 111 ampicillin 330 Oral 1200 470 560 Output: Urine 1000 1150 200 Other: Date of Last Bowel 08/27/17 Movement # Bowel Movements 1 Estimated Stool Amount Medium Small Gen:awake, no distress Neck:supple Heart:RRR no murmur Lungs:CTA BL Abd:+BS NTND soft Skin: no rash MSK: no spine tenderness or joint tenderness Neuro:Ox3, moves all extremities Laboratory Results - last 24 hr 08/28/17 08/28/17 06:28 06:28 INR (Anticoag Therapy) 3.52 H Sodium 137 Potassium 3.6 Chloride 102 Carbon Dioxide 27 Anion Gap 8 BUN 16 Creatinine 1.06 H Est GFR ( Amer) 63.8 Est GFR (Non-Af Amer) 49.6 BUN/Creatinine Ratio 15.1 Glucose 105 H Calcium 9.2 Magnesium 1.7 L Microbiology 08/27/17 06:28 Blood Venous Aerobic Blood Culture - Preliminary No Growth Day 1 08/27/17 06:28 Blood Venous Anaerobic Blood Culture - Preliminary No Growth Day 1 08/24/17 05:56 Blood Venous Aerobic Blood Culture - Final Enterococcus Faecalis 08/24/17 05:56 Blood Venous Anaerobic Blood Culture - Preliminary No Growth Day 4 08/24/17 05:56 Blood Venous Blood Culture - Final LA: 1x1 cm Aortic valve mass 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 Enterococcus cystitis, pyelonephritis, infected stone s/p ureteral stent Plan: 1. amp 2 gm IV Q4hrs and gentamicin 80 Q24 hrs day . Recheck BMP 08/29 gent peak/trough as well. 35 minutes floor time >50% face to face in counseling regarding antibiotic treatment and monitoring for AG side effect including change in hearing or balance which she will report if she notices them.
--- NOTE | 2017-08-28 14:02 | PN ---
Subjective Date of Service: 08/28/17 Interval History: Pt feels well, just tired. Aware of likely need to stay in the hospital for the entire 6 weeks of her treatment. Objective Active Medications: Acetaminophen (Tylenol Tab*) 650 mg PO Q6H PRN PRN Reason: FEVER/PAIN Last Admin: 08/24/17 17:07 Dose: 650 mg Atorvastatin Calcium (Lipitor*) 10 mg PO QPM [facility] Last Admin: 08/27/17 18:27 Dose: 10 mg Cholecalciferol (Vitamin D Tab*) 2,000 units PO DAILY [facility] Last Admin: 08/28/17 09:19 Dose: 2,000 units Coenzyme Q10 (Coenzyme Q10 (Nf)) 1 cap PO DAILY [facility] Last Admin: 08/28/17 09:22 Dose: Not Given Hydrochlorothiazide (Hydrodiuril Tab*) 25 mg PO 1600 [facility] Last Admin: 08/27/17 16:28 Dose: 25 mg Gentamicin Sulfate 80 mg/ (Sodium Chloride) 102 mls @ 204 mls/hr IVPB Q24H [facility] Last Admin: 08/28/17 09:15 Dose: 204 mls/hr Ampicillin Sodium 2 gm/ Sodium (Chloride) 100 mls @ 200 mls/hr IVPB Q4H [facility] Last Admin: 08/28/17 11:42 Dose: 200 mls/hr Magnesium Oxide (Magox 400 Tab*) 800 mg PO DAILY [facility] Last Admin: 08/28/17 09:19 Dose: 800 mg Multivitamins/Minerals (Preservision Areds(Multivitamins/Mineral)(Nf)) 1 cap PO BID [facility] Last Admin: 08/28/17 09:20 Dose: 1 cap Pto: Propafenone Hcl (Sr 425mg Capsule) 1 dose PO BID [facility] Last Admin: 08/28/17 09:20 Dose: 1 dose Pto:Non Formulary Med ([place] Mini Gels) 1 dose PO DAILY [facility] Last Admin: 08/28/17 09:20 Dose: 1 dose Pto:Non Formulary (Med (Joint Soother)) 1 dose PO BID [facility] Last Admin: 08/28/17 09:20 Dose: 1 dose Pharmacy Consult (Gentamicin Adult Per Pharmacy) 1 note FOLLOW UP .GENT PER PHARMACY PRN PRN Reason: PER PROTOCOL Stop: 09/08/17 13:13 Pharmacy Profile Note (Coumadin Daily Reminder*) 0 note FOLLOW UP 1700 [facility] Last Admin: 08/27/17 16:31 Dose: 1 note Pharmacy Profile Note (Gentamicin Trough Level) 1 note FOLLOW UP 0800 [facility] Stop: 08/29/17 08:01 Pharmacy Profile Note (Gentamicin Peak Level*) 1 note FOLLOW UP 09 [facility] Stop: 08/29/17 09:01 Spironolactone (Aldactone Tab*) 25 mg PO 1600 [facility] Last Admin: 08/27/17 16:28 Dose: 25 mg Throat Lozenges (Chloraseptic Simba*) 1 simba MT Q6H PRN PRN Reason: SORE THROAT Last Admin: 08/25/17 22:48 Dose: 1 simba Vital Signs 08/27/17 08/27/17 08/27/17 16:20 19:48 20:00 Temperature 99.8 F 98.6 F Pulse Rate 56 63 Respiratory 16 18 16 Rate Blood Pressure 116/49 146/60 (mmHg) O2 Sat by Pulse 98 98 Oximetry 08/27/17 08/28/17 08/28/17 23:58 04:05 07:29 Temperature 99.0 F 98.6 F 98.1 F Pulse Rate 62 64 53 Respiratory 16 16 16 Rate Blood Pressure 138/56 142/54 119/59 (mmHg) O2 Sat by Pulse 96 99 98 Oximetry 08/28/17 08/28/17 07:50 11:29 Temperature 99.4 F Pulse Rate 59 Respiratory 16 16 Rate Blood Pressure 133/66 (mmHg) O2 Sat by Pulse 97 Oximetry Oxygen Devices in Use Now: None Appearance: 81 yo F in nAd, AAOx3 Eyes: No Scleral Icterus, PERRLA Ears/Nose/Mouth/Throat: NL Teeth, Lips, Gums, Mucous Membranes Moist Neck: NL Appearance and Movements; NL JVP, Trachea Midline Respiratory: Symmetrical Chest Expansion and Respiratory Effort, Clear to Auscultation Cardiovascular: NL Sounds; No Murmurs; No JVD, RRR Abdominal: NL Sounds; No Tenderness; No Distention, No Hepatosplenomegaly Lymphatic: No Cervical Adenopathy Extremities: No Edema, No Clubbing, Cyanosis Skin: No Rash or Ulcers, No Nodules or Sclerosis Neurological: Alert and Oriented x 3, NL Muscle Strength and Tone Result Diagrams: 08/26/17 08:09 08/28/17 06:28 Additional Lab and Data: Lab Results 08/22/17 08/22/17 08/22/17 Range/Units 11:36 11:36 11:36 WBC 20.9 H (3.5-10.8) 10^3/ul RBC 3.95 L (4.0-5.4) 10^6/ul Hgb 12.9 (12.0-16.0) g/dl Hct 38 (35-47) % MCV 95 (80-97) fL MCH 33 H (27-31) pg MCHC 34 (31-36) g/dl RDW 13 (10.5-15) % Plt Count 163 (150-450) 10^3/ul MPV 8 (7.4-10.4) um3 Neut % (Auto) 93.5 H (38-83) % Lymph % (Auto) 1.3 L (25-47) % [place] % (Auto) 5.1 (1-9) % Eos % (Auto) 0 (0-6) % Baso % (Auto) 0.1 (0-2) % Absolute Neuts (auto) 19.5 H (1.5-7.7) 10^3/ul Absolute Lymphs (auto) 0.3 L (1.0-4.8) 10^3/ul Absolute Monos (auto) 1.1 H (0-0.8) 10^3/ul Absolute Eos (auto) 0 (0-0.6) 10^3/ul Absolute Basos (auto) 0 (0-0.2) 10^3/ul Absolute Nucleated RBC 0.01 10^3/ul Nucleated RBC % 0 INR (Anticoag Therapy) (0.89-1.11) APTT (26.0-36.3) seconds Sodium 132 L (133-145) mmol/L Potassium 4.1 (3.5-5.0) mmol/L Chloride 98 L (101-111) mmol/L Carbon Dioxide 26 (22-32) mmol/L Anion Gap 8 (2-11) mmol/L BUN 27 H (6-24) mg/dL Creatinine 1.56 H (0.51-0.95) mg/dL Est GFR ( Amer) 40.9 (>60) Est GFR (Non-Af Amer) 31.8 (>60) BUN/Creatinine Ratio 17.3 (8-20) Glucose 120 H (70-100) mg/dL Lactic Acid 1.0 (0.5-2.0) mmol/L Calcium 9.4 (8.6-10.3) mg/dL Total Bilirubin 0.90 (0.2-1.0) mg/dL AST 17 (13-39) U/L ALT 12 (7-52) U/L Alkaline Phosphatase 42 (34-104) U/L Troponin I 0.00 (<0.04) ng/mL C-Reactive Protein 28.49 H (< 5.00) mg/L Total Protein 6.0 L (6.4-8.9) g/dL Albumin 3.5 (3.2-5.2) g/dL Globulin 2.5 (2-4) g/dL Albumin/Globulin Ratio 1.4 (1-3) Lipase 33 (11.0-82.0) U/L // Range/Units 11:36 WBC (3.5-10.8) 10^3/ul RBC (4.0-5.4) 10^6/ul Hgb (12.0-16.0) g/dl Hct (35-47) % MCV (80-97) fL MCH (27-31) pg MCHC (31-36) g/dl RDW (10.5-15) % Plt Count (150-450) 10^3/ul MPV (7.4-10.4) um3 Neut % (Auto) (38-83) % Lymph % (Auto) (25-47) % [place] % (Auto) (1-9) % Eos % (Auto) (0-6) % Baso % (Auto) (0-2) % Absolute Neuts (auto) (1.5-7.7) 10^3/ul Absolute Lymphs (auto) (1.0-4.8) 10^3/ul Absolute Monos (auto) (0-0.8) 10^3/ul Absolute Eos (auto) (0-0.6) 10^3/ul Absolute Basos (auto) (0-0.2) 10^3/ul Absolute Nucleated RBC 10^3/ul Nucleated RBC % INR (Anticoag Therapy) 1.85 H (0.89-1.11) APTT 37.4 H (26.0-36.3) seconds Sodium (133-145) mmol/L Potassium (3.5-5.0) mmol/L Chloride (101-111) mmol/L Carbon Dioxide (22-32) mmol/L Anion Gap (2-11) mmol/L BUN (6-24) mg/dL Creatinine (0.51-0.95) mg/dL Est GFR ( Amer) (>60) Est GFR (Non-Af Amer) (>60) BUN/Creatinine Ratio (8-20) Glucose (70-100) mg/dL Lactic Acid (0.5-2.0) mmol/L Calcium (8.6-10.3) mg/dL Total Bilirubin (0.2-1.0) mg/dL AST (13-39) U/L ALT (7-52) U/L Alkaline Phosphatase (34-104) U/L Troponin I (<0.04) ng/mL C-Reactive Protein (< 5.00) mg/L Total Protein (6.4-8.9) g/dL Albumin (3.2-5.2) g/dL Globulin (2-4) g/dL Albumin/Globulin Ratio (1-3) Lipase (11.0-82.0) U/L Microbiology and Other Data: Microbiology 08/24/17 05:57 Aerobic Blood Culture - Preliminary Blood Venous Enterococcus Faecalis Anaerobic Blood Culture - Preliminary Enterococcus Faecalis Blood Culture - Final 08/24/17 05:56 Aerobic Blood Culture - Preliminary Blood Venous Anaerobic Blood Culture - Preliminary No Growth Day 1 Assess/Plan/Problems-Billing Assessment: 81 yo F with h/o a. fib on Coumadin with left hydronephrosis and obstructing stone - Patient Problems (1) Bacteremia Comment: Sepsis due to E. faecalis pyelonephritis on left and nephrolithiasis (s /p stent on 08/22/17) D/w Dr. Reyes. appreciate ID consult. Ampicillin sensitive. LA showed mod MR and 1 cm vegetation on the aortic valve. Added gentamycin to pt's tx on 08/25/17 Blood cx repeated on 08/24/17 still positive, repeat blood cx from 08/27/17 NTD (2) Atrial fibrillation Comment: today in regular rhythm. cont Propafenone from home 425 mg BID (3) Acute renal failure Comment: due to obstruction and pyelo resolved (4) Nephrolithiasis Comment: s/p cysto and stent placement in L ureter by Dr. Ayala on 08/22/17. Repeat renal US on 08/23/17 shows resolution of hydronephrosis (5) HTN (hypertension) Comment: holding Losartan , cont HCTZ, aldactone, controlled (6) DVT prophylaxis Comment: cont Coumadin, dose held today, then will restart at a lower dose at 4mg tomorrow Status and Disposition: inpatient- will be placed on SWING status today
[2017-08-28] MEDS ORDERED: Warfarin TAB(*) 4 MG PO SCH (17:00)
--- NOTE | 2017-08-29 04:35 | DS ---
CC: Dr. Beaulieu; Dr. Ayala; Dr. Reyes; Dr. Read * DISCHARGE SUMMARY: DATE OF ADMISSION: 08/23/17 DATE OF DISCHARGE: She is being discharged to the swing status bed on 08/28/17. Please regard this discharge summary to patient's swing bed status, also as history and physical of admission to swing bed of this patient on the day of discharge from acute stay. PRIMARY CARE PROVIDER: Dr. Beaulieu. DISCHARGE DIAGNOSES: 1. Septicemia with Enterococcus faecalis due to urinary tract infection. 2. 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 3. Left-sided hydronephrosis acute due to the acute ureteric obstruction with a stone, status post cystoscopy and stenting on the left side by Dr. Ayala on . SECONDARY DIAGNOSES: 1. History of atrial fibrillation, on anticoagulation with Coumadin. 2. Hyperlipidemia. 3. Hypertension. 4. Nephrolithiasis. MEDICATIONS AT DISCHARGE: Include: 1. Vitamin D3, 2000 units daily. 2. Coenzyme Q10, 100 mg daily. 3. Glucosamine 1500 mg daily. 4. Cozaar 100 mg daily. 5. Magnesium oxide 800 mg daily. 6. Multivitamin 1 tablet daily. 7. [place]-3 fatty 1 capsule daily. 8. Propafenone 425 mg daily. 9. Zocor 20 mg daily. 10. Spironolactone with hydrochlorothiazide 25/25 one tablet daily. 11. Gentamicin 80 mg every 24 hours. 12. Ampicillin 2 g IV q. 4 hours. LABORATORY DATA AND STUDIES PERFORMED DURING THE HOSPITAL STAY: Included: On 08/26/17, white blood cell count of 6, hemoglobin 10.9, hematocrit 31, and platelets of 132. On 08/28/17, sodium of 137, potassium 3.6, chloride 102, carbon dioxide 27, BUN 16, creatinine 1.06. Magnesium 1.7. INR on the day of transfer to swing was 3.52. It is planned for the patient's Coumadin to be held for one day and to be restarted at 4 mg daily on 08/29/17. Transesophageal echocardiogram obtained on 08/25/17 showed normal ventricular systolic function with an EF of 55% to 60% with global left ventricular wall motion contractility within normal limits. There was a mass visualized at the aortic valve, which appears consistent with a vegetation measuring 1.1 x 1 cm on the aortic side of the coronary cusp of the aortic valve. There is mild-to- moderate mitral regurgitation. Renal ultrasound obtained on 08/23/17, impression: "Status post ureteral stent placement. Interval resolution of left hydronephrosis." CT abdomen and pelvis obtained on admission, impression: "Left nephrolithiasis with left-sided hydronephrosis and perinephric stranding. This included 0.6 cm left UVJ stone and 0.4 cm left distal ureteral stone. Atherosclerosis. Cholelithiasis." CONSULTATION DURING THE HOSPITAL STAY: Included Dr. Ayala from Urology, Dr. Reyes from Infectious Diseases. HOSPITALIZATION COURSE: Ms. Roque is a very nice 81-year-old female who has had problems with nephrolithiasis for quite some time and just prior to her admission to the hospital had ureteral stent placement and lithotripsy. She came to the hospital complaining of fever for the past few days. She was noted to be in sepsis and her blood cultures were positive for Enterococcus faecalis. She continued to be febrile past 24 hours of her initial presentation, despite cystoscopy and relief of the obstruction by ureteral stent placement on the left by Dr. Ayala. At this point, Dr. Reyes was consulted from Infectious Diseases who I recommended LA. That was performed on 08/25/17 during which time the patient had documented vegetation of the aortic valve. At this point, Dr. Reyes recommended an addition of gentamicin to ampicillin. Due to the fact that patient requires ampicillin administration every 4 hours and due to frequent monitoring of patient's gentamicin, patient is going to be placed on swing bed status. On the day of transfer to swing status, the patient is on day second out of 42 days of her treatment. PHYSICAL EXAMINATION: At the time of discharge, please see daily progress notes. TIME SPENT: Approximately 45 minutes was spent on patient's discharge. [id number]/CPS #: [id number] MTDD
[2017-08-29] MEDS ORDERED: Gentamicin Trough Level 1 NOTE MISC FOLLOW UP ONE (08:00)
[2017-08-29] MEDS ORDERED: Gentamicin PEAK LEVEL* 1 NOTE MISC FOLLOW UP ONE (09:00)
== END 2017-08-28 14:08 | disposition swing bed (61) | DRG 871 ==
LOC: ED 10:00 → OR 16:09 → SSU 19:35 → OBSVTOIN 08-23 10:34
PROVIDERS: ADMIT Internal Medicine; ATTEND Internal Medicine
PROC: 0T778DZ Dilation of Left Ureter with Intraluminal Device, Via Natural or Artificial Opening Endoscopic (ICD-10-PCS; 2017-08-22)
PROC: BT1FYZZ Fluoroscopy of Left Kidney, Ureter and Bladder using Other Contrast (ICD-10-PCS; principal; 2017-08-22 17:00)
PROC: B245ZZ4 Ultrasonography of Left Heart, Transesophageal (ICD-10-PCS; 2017-08-25)
DX: A41.81 Sepsis due to Enterococcus (principal); I33.9 Acute and subacute endocarditis, unspecified; N17.9 Acute kidney failure, unspecified; N39.0 Urinary tract infection, site not specified; N13.2 Hydronephrosis with renal and ureteral calculous obstruction; B95.2 Enterococcus as the cause of diseases classified elsewhere; I48.91 Unspecified atrial fibrillation; E78.5 Hyperlipidemia, unspecified; I10 Essential (primary) hypertension; I70.90 Unspecified atherosclerosis; K80.20 Calculus of gallbladder without cholecystitis without obstruction; Z96.653 Presence of artificial knee joint, bilateral; Z79.01 Long term (current) use of anticoagulants; Z79.899 Other long term (current) drug therapy; Z88.8 Allergy status to other drugs, medicaments and biological substances
CPT/HCPCS: 36415; 74000; 74176; 74420; 76775; 80048; 80053; 80170; 83605; 83690; 83735; 84484; 85025; 85060; 85610; 85730; 86140; 87040; 87077; 87086; 87150; 87186; 87205; 93005; 93306; 93312; 93325; 99156; 99157; A9270-GY; C1876; J0290; J0744; J1580; J2250; J2310; J3010; J3370; J3475

== ENCOUNTER 2017-08-28 14:39 | Inpatient (IN) | payer MEDICARE, OTHER ==
[2017-08-28] MEDS ORDERED: oxyCODONE/Acetamin 5/325 MG* TAB PO PRN (15:59)
[2017-08-28] MEDS ORDERED: Al Hydrox/Mg Hydrox/Simet LIQ* 30 ML UDC PO PRN (15:59)
[2017-08-28] MEDS ORDERED: Gentamicin ADULT per pharmacy 1 NOTE MISC FOLLOW UP PRN (16:09)
[2017-08-28] MEDS ORDERED: Gentamicin ADULT (*) 40 MG/ML VIAL IVPB SCH (17:00)
[2017-08-28] MEDS: Atorvastatin* 10 MG TAB PO SCH (17:22)
[2017-08-28] MEDS ORDERED: Simvastatin TAB(NF) 20 MG TAB PO SCH (18:00)
[2017-08-28] MEDS: Acetaminophen TAB* 325 MG PO PRN (19:54)
[2017-08-28] MEDS: Senna TAB PO SCH (19:57)
[2017-08-28] MEDS: GLUCOSAMINE PO SCH (20:10)
[2017-08-28] MEDS: CHONDROITIN PO SCH (20:10)
[2017-08-28] MEDS: PROPAFENONE HCL 425 MG PO SCH (20:10)
[2017-08-28] MEDS: METHYLSULFONYLMETHANE PO SCH (20:10)
[2017-08-28] MEDS: MULTIVITAMINS PO SCH (21:34)
[2017-08-28] MEDS: MINERALS AREDS2 PO SCH (21:34)
[2017-08-29] MEDS: Acetaminophen TAB* 325 MG PO PRN ×2 (00:55→21:34)
[2017-08-29 07:53] LABS: Hematocrit 34 % (35-47); Hemoglobin 11.6 g/dl (12.0-16.0); Mean Corpuscular HGB Conc 34 g/dl (31-36); Mean Corpuscular Hemoglobin 32 pg (27-31); Mean Corpuscular Volume 95 fL (80-97); Mean Platelet Volume 8 um3 (7.4-10.4); Red Blood Count 3.63 10^6/ul (4.0-5.4); Red Cell Distribution Width 13 % (10.5-15); White Blood Count 9.1 10^3/ul (3.5-10.8)
[2017-08-29 07:59] LABS: BUN/Creatinine Ratio 13.9 (8-20); Calcium 9.4 mg/dL (8.6-10.3); EGFR African American 58.1 (>60); EGFR Non-African American 45.2 (>60); Potassium 3.7 mmol/L (3.5-5.0)
[2017-08-29] MEDS: PROPAFENONE HCL 425 MG PO SCH ×2 (08:22→21:10)
[2017-08-29] MEDS: [UNRECOGNIZED DRUG - REMARK] PO SCH (08:22)
[2017-08-29] MEDS: Magnesium Oxide TAB* 400 MG PO SCH (08:23)
[2017-08-29] MEDS: Cholecalciferol TAB* 1000 UNITS PO SCH (08:23)
[2017-08-29] MEDS: Hydrochlorothiazide TAB* 25 MG PO SCH (08:23)
[2017-08-29] MEDS: Spironolactone TAB* 25 MG PO SCH (08:23)
[2017-08-29] MEDS: Senna TAB PO SCH ×2 (08:23→21:12)
[2017-08-29] MEDS: MINERALS AREDS2 PO SCH ×2 (08:24→21:11)
[2017-08-29] MEDS: MULTIVITAMINS PO SCH ×2 (08:24→21:11)
[2017-08-29] MEDS: GLUCOSAMINE PO SCH ×2 (08:25→21:12)
[2017-08-29] MEDS: METHYLSULFONYLMETHANE PO SCH ×2 (08:25→21:12)
[2017-08-29] MEDS: CHONDROITIN PO SCH ×2 (08:25→21:12)
[2017-08-29] MEDS: COENZYME Q10 100 MG PO SCH (08:25)
[2017-08-29] MEDS ORDERED: Losartan TAB* 25 MG PO SCH (09:00)
[2017-08-29] MEDS: Atorvastatin* 10 MG TAB PO SCH (16:58)
[2017-08-29] MEDS ORDERED: Warfarin TAB(*) 4 MG PO SCH (17:00)
[2017-08-30] MEDS: Hydrochlorothiazide TAB* 25 MG PO SCH (08:54)
[2017-08-30] MEDS: Spironolactone TAB* 25 MG PO SCH (08:54)
[2017-08-30] MEDS: Magnesium Oxide TAB* 400 MG PO SCH (08:54)
[2017-08-30] MEDS: Cholecalciferol TAB* 1000 UNITS PO SCH (08:55)
[2017-08-30] MEDS: PROPAFENONE HCL 425 MG PO SCH ×2 (08:56→21:02)
[2017-08-30] MEDS: CHONDROITIN PO SCH ×2 (08:57→21:01)
[2017-08-30] MEDS: METHYLSULFONYLMETHANE PO SCH ×2 (08:57→21:01)
[2017-08-30] MEDS: GLUCOSAMINE PO SCH ×2 (08:57→21:01)
[2017-08-30] MEDS: Senna TAB PO SCH ×2 (08:58→21:03)
[2017-08-30] MEDS: MINERALS AREDS2 PO SCH ×2 (08:58→21:02)
[2017-08-30] MEDS: [UNRECOGNIZED DRUG - REMARK] PO SCH (08:58)
[2017-08-30] MEDS: MULTIVITAMINS PO SCH ×2 (08:58→21:02)
[2017-08-30] MEDS: COENZYME Q10 100 MG PO SCH (09:02)
[2017-08-30 10:53] LABS: Calcium 8.9 mg/dL (8.6-10.3); EGFR African American 54.8 (>60); EGFR Non-African American 42.6 (>60); Potassium 3.7 mmol/L (3.5-5.0)
--- NOTE | 2017-08-30 12:16 | PN ---
Progress Note - Progress Note Date of Service: 08/30/17 SOAP: Subjective: CC:infective endocarditis HPI: 81 year old woman with left hdyronephrosis from obstructing stone s/p ureteral stent; complicated by E. fecalis bacteremia and aortic valve endocarditis. On amp and gent. No fever, rash, diarrhea, change in hearing or change in balance. Objective: [] Vital Signs Temp 36.8 C 08/30/17 07:30 Pulse 63 08/30/17 07:30 Resp 16 08/30/17 07:30 BP 133/58 08/30/17 07:30 Pulse Ox 97 08/30/17 07:30 Intake & Output 08/29/17 08/30/17 08/30/17 18:59 06:59 18:59 Intake Total 1291 805 480 Output Total 500 Balance 791 805 480 Intake: IV Fluids 405 ABX - AMPICILLIN 315 NS (0.9%) 90 IVPB 771 ABX - GENTAMYCIN 640 NS (0.9%) 131 Oral 520 400 480 Output: Urine 500 Other: Estimated Void Medium # Bowel Movements 0 # Voids 2 2 Gen:awake, no distress HEENT:PERRL, MMM Neuro: Ox3, CN 2-12 intact; baseline decreased hearing BL Neck:supple Heart:RRR no murmur Lungs:CTA BL Abd:+BS NTND soft Skin: no rash MSK: no joint tenderness Laboratory Results - last 24 hr 08/30/17 08/30/17 05:35 05:39 INR (Anticoag Therapy) 4.37 H Sodium 139 Potassium 3.7 Chloride 103 Carbon Dioxide 28 Anion Gap 8 BUN 17 Creatinine 1.21 H Est GFR ( Amer) 54.8 Est GFR (Non-Af Amer) 42.6 BUN/Creatinine Ratio 14.0 Glucose 92 Calcium 8.9 Assessment: 1. 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 Enterococcus UTI with infected obstructing stone s/p ureteral stent Plan: 1. decr amp to 2 gm Q6hrs for GFR 35. Hold gent tomorrow, check a trough, redose pending results. Recheck BMP 08/31. 25 minutes floor time >50% in counseling regarding antibiotic treatment and side effect monitoring; she understands her kidney function is decreasing slightly on gentamicin but that it is needed to cure her heart valve infection; she would like to proceed with continued careful monitoring.
[2017-08-30] MEDS: Atorvastatin* 10 MG TAB PO SCH (16:46)
[2017-08-31 04:46] LABS: EGFR African American 58.7 (>60); EGFR Non-African American 45.6 (>60)
[2017-08-31] MEDS ORDERED: Gentamicin Trough Level 1 NOTE MISC FOLLOW UP ONE (09:00)
[2017-08-31] MEDS: Cholecalciferol TAB* 1000 UNITS PO SCH (09:15)
[2017-08-31] MEDS: MULTIVITAMINS PO SCH ×2 (09:17→21:50)
[2017-08-31] MEDS: MINERALS AREDS2 PO SCH ×2 (09:17→21:50)
[2017-08-31] MEDS: Magnesium Oxide TAB* 400 MG PO SCH (09:24)
[2017-08-31] MEDS: Spironolactone TAB* 25 MG PO SCH (09:24)
[2017-08-31] MEDS: Senna TAB PO SCH ×3 (09:24→21:51)
[2017-08-31] MEDS: Hydrochlorothiazide TAB* 25 MG PO SCH (09:25)
[2017-08-31] MEDS: COENZYME Q10 100 MG PO SCH (09:26)
[2017-08-31] MEDS: CHONDROITIN PO SCH ×2 (09:26→21:52)
[2017-08-31] MEDS: [UNRECOGNIZED DRUG - REMARK] PO SCH (09:26)
[2017-08-31] MEDS: PROPAFENONE HCL 425 MG PO SCH ×2 (09:26→21:51)
[2017-08-31] MEDS: METHYLSULFONYLMETHANE PO SCH ×2 (09:26→21:52)
[2017-08-31] MEDS: GLUCOSAMINE PO SCH ×2 (09:26→21:52)
--- NOTE | 2017-08-31 10:00 | PN ---
Progress Note - Progress Note Date of Service: 08/31/17 SOAP: Subjective: CC:infective endocarditis HPI: 81 year old woman with left hdyronephrosis from obstructing stone s/p ureteral stent; complicated by E. fecalis bacteremia and aortic valve endocarditis. On amp and gent. No fever, rash, diarrhea, change in hearing or change in balance. Objective: [] Vital Signs Temp 37.0 C 08/31/17 07:43 Pulse 64 08/31/17 07:43 Resp 16 08/31/17 07:43 BP 118/46 08/31/17 07:43 Pulse Ox 97 08/31/17 07:43 Intake & Output 08/30/17 08/31/17 08/31/17 18:59 06:59 18:59 Intake Total 1795 487 360 Balance 1795 487 360 Intake: IV Fluids 105 30 ABX - AMPICILLIN 105 NS (0.9%) 30 IVPB 250 217 ABX - AMPICILLIN 217 ABX - GENTAMYCIN 250 Oral 1440 240 360 Other: Estimated Void Medium Large # Bowel Movements 0 # Voids 2 5 Gen:awake, no distress HEENT:PERRL, MMM Neuro: Ox3, CN 2-12 intact; baseline decreased hearing BL Neck:supple Heart:RRR no murmur Lungs:CTA BL Abd:+BS NTND soft Skin: no rash MSK: no joint tenderness Laboratory Results - last 24 hr 08/30/17 08/31/17 08/31/17 05:35 04:05 04:05 INR (Anticoag Therapy) 2.85 H Sodium 139 Potassium 3.7 Chloride 103 Carbon Dioxide 28 Anion Gap 8 BUN 17 18 Creatinine 1.21 H 1.14 H Est GFR ( Amer) 54.8 58.7 Est GFR (Non-Af Amer) 42.6 45.6 BUN/Creatinine Ratio 14.0 Glucose 92 Calcium 8.9 Assessment: 1. Enterococcus infective endocarditis, aortic valve; tolerating antibiotics well; Cr was elevated but leveled off now. Trough pending 2. fdc abx 3. Enterococcus UTI with infected obstructing stone s/p ureteral stent Plan: 1. amp to 2 gm Q6hrs, continuing to hold gent awaiting trough; if can't give at least daily gent will consider changein to amox/ceftriaxone
[2017-08-31] MEDS: cefTRIAXone VIAL(*) 1,000 MG in NS 0.9% 50 ML* 50 ML IVPB SCH (11:24)
[2017-08-31] MEDS ORDERED: Warfarin TAB(*) 3 MG PO SCH (17:00)
[2017-08-31] MEDS: Atorvastatin* 10 MG TAB PO SCH (17:24)
[2017-08-31] MEDS: Lactobacillus Acidophilu (GG)* 1 CAP CAP PO SCH (21:51)
[2017-09-01] MEDS: cefTRIAXone VIAL(*) 1,000 MG in NS 0.9% 50 ML* 50 ML IVPB SCH ×3 (00:06→22:51)
[2017-09-01] MEDS ORDERED: Gentamicin PEAK LEVEL* 1 NOTE MISC FOLLOW UP ONE (09:00)
[2017-09-01] MEDS: Magnesium Oxide TAB* 400 MG PO SCH (09:27)
[2017-09-01] MEDS: Cholecalciferol TAB* 1000 UNITS PO SCH (09:27)
[2017-09-01] MEDS: Lactobacillus Acidophilu (GG)* 1 CAP CAP PO SCH ×2 (09:27→21:45)
[2017-09-01] MEDS: Hydrochlorothiazide TAB* 25 MG PO SCH (09:27)
[2017-09-01] MEDS: COENZYME Q10 100 MG PO SCH (09:28)
[2017-09-01] MEDS: MINERALS AREDS2 PO SCH ×2 (09:32→21:45)
[2017-09-01] MEDS: CHONDROITIN PO SCH ×2 (09:32→21:46)
[2017-09-01] MEDS: MULTIVITAMINS PO SCH ×2 (09:32→21:45)
[2017-09-01] MEDS: GLUCOSAMINE PO SCH ×2 (09:32→21:46)
[2017-09-01] MEDS: METHYLSULFONYLMETHANE PO SCH ×2 (09:32→21:46)
[2017-09-01] MEDS: PROPAFENONE HCL 425 MG PO SCH ×2 (09:34→21:46)
[2017-09-01] MEDS: [UNRECOGNIZED DRUG - REMARK] PO SCH (10:10)
[2017-09-01] MEDS: Spironolactone TAB* 25 MG PO SCH (10:20)
[2017-09-01] MEDS: Senna TAB PO SCH ×2 (10:20→20:44)
[2017-09-01] MEDS ORDERED: Warfarin TAB(*) 4 MG PO ONE (17:00)
[2017-09-01] MEDS: Atorvastatin* 10 MG TAB PO SCH (17:31)
[2017-09-02] MEDS: Magnesium Oxide TAB* 400 MG PO SCH (08:49)
[2017-09-02] MEDS: Hydrochlorothiazide TAB* 25 MG PO SCH (08:49)
[2017-09-02] MEDS: Cholecalciferol TAB* 1000 UNITS PO SCH (08:49)
[2017-09-02] MEDS: CHONDROITIN PO SCH ×2 (08:51→21:30)
[2017-09-02] MEDS: COENZYME Q10 100 MG PO SCH (08:51)
[2017-09-02] MEDS: METHYLSULFONYLMETHANE PO SCH ×2 (08:51→21:30)
[2017-09-02] MEDS: PROPAFENONE HCL 425 MG PO SCH ×2 (08:51→21:30)
[2017-09-02] MEDS: GLUCOSAMINE PO SCH ×2 (08:51→21:30)
[2017-09-02] MEDS: [UNRECOGNIZED DRUG - REMARK] PO SCH (08:53)
[2017-09-02] MEDS: Senna TAB PO SCH ×2 (08:54→22:33)
[2017-09-02] MEDS: Lactobacillus Acidophilu (GG)* 1 CAP CAP PO SCH ×2 (08:54→21:30)
[2017-09-02] MEDS: MINERALS AREDS2 PO SCH ×2 (08:55→21:30)
[2017-09-02] MEDS: MULTIVITAMINS PO SCH ×2 (08:55→21:30)
[2017-09-02] MEDS: Spironolactone TAB* 25 MG PO SCH (09:27)
[2017-09-02] MEDS: cefTRIAXone VIAL(*) 1,000 MG in NS 0.9% 50 ML* 50 ML IVPB SCH ×2 (11:41→23:13)
[2017-09-02] MEDS: Atorvastatin* 10 MG TAB PO SCH (16:46)
[2017-09-02] MEDS ORDERED: Warfarin TAB(*) 5 MG PO ONE (17:00)
[2017-09-03] MEDS: Acetaminophen TAB* 325 MG PO PRN ×3 (02:54→22:50)
[2017-09-03] MEDS ORDERED: Senna TAB PO PRN (07:19)
[2017-09-03] MEDS: Hydrochlorothiazide TAB* 25 MG PO SCH (09:00)
[2017-09-03] MEDS: Magnesium Oxide TAB* 400 MG PO SCH (09:00)
[2017-09-03] MEDS: Cholecalciferol TAB* 1000 UNITS PO SCH (09:01)
[2017-09-03] MEDS: Spironolactone TAB* 25 MG PO SCH (09:01)
[2017-09-03] MEDS: Lactobacillus Acidophilu (GG)* 1 CAP CAP PO SCH ×2 (09:02→20:20)
[2017-09-03] MEDS: PROPAFENONE HCL 425 MG PO SCH ×2 (09:02→20:20)
[2017-09-03] MEDS: MINERALS AREDS2 PO SCH ×2 (09:03→20:20)
[2017-09-03] MEDS: MULTIVITAMINS PO SCH ×2 (09:03→20:20)
[2017-09-03] MEDS: METHYLSULFONYLMETHANE PO SCH ×2 (09:04→20:14)
[2017-09-03] MEDS: [UNRECOGNIZED DRUG - REMARK] PO SCH (09:04)
[2017-09-03] MEDS: GLUCOSAMINE PO SCH ×2 (09:04→20:14)
[2017-09-03] MEDS: CHONDROITIN PO SCH ×2 (09:04→20:14)
[2017-09-03] MEDS: COENZYME Q10 100 MG PO SCH (09:05)
[2017-09-03] MEDS: cefTRIAXone VIAL(*) 1,000 MG in NS 0.9% 50 ML* 50 ML IVPB SCH ×2 (11:16→22:46)
[2017-09-03] MEDS: Atorvastatin* 10 MG TAB PO SCH (16:17)
[2017-09-03] MEDS ORDERED: Warfarin TAB(*) 5 MG PO ONE (17:00)
[2017-09-04 06:20] LABS: Hematocrit 31 % (35-47); Hemoglobin 10.8 g/dl (12.0-16.0); Mean Corpuscular HGB Conc 35 g/dl (31-36); Mean Corpuscular Hemoglobin 32 pg (27-31); Mean Corpuscular Volume 91 fL (80-97); Mean Platelet Volume 8 um3 (7.4-10.4); Red Blood Count 3.37 10^6/ul (4.0-5.4); Red Cell Distribution Width 13 % (10.5-15); White Blood Count 8.8 10^3/ul (3.5-10.8)
[2017-09-04 06:35] LABS: Albumin 3.3 g/dL (3.2-5.2); BUN/Creatinine Ratio 17.1 (8-20); Calcium 9.3 mg/dL (8.6-10.3); EGFR African American 60.5 (>60); EGFR Non-African American 47.1 (>60); Globulin 2.9 g/dL (2-4); Potassium 3.6 mmol/L (3.5-5.0); Total Bilirubin 0.3 mg/dL (0.2-1.0); Total Protein 6.2 g/dL (6.4-8.9)
[2017-09-04] MEDS: METHYLSULFONYLMETHANE PO SCH ×2 (09:54→19:53)
[2017-09-04] MEDS: CHONDROITIN PO SCH ×2 (09:54→19:53)
[2017-09-04] MEDS: GLUCOSAMINE PO SCH ×2 (09:54→19:53)
[2017-09-04] MEDS: Cholecalciferol TAB* 1000 UNITS PO SCH (09:55)
[2017-09-04] MEDS: Spironolactone TAB* 25 MG PO SCH (09:55)
[2017-09-04] MEDS: PROPAFENONE HCL 425 MG PO SCH ×2 (09:55→19:54)
[2017-09-04] MEDS: Hydrochlorothiazide TAB* 25 MG PO SCH (09:55)
[2017-09-04] MEDS: Magnesium Oxide TAB* 400 MG PO SCH (09:55)
[2017-09-04] MEDS: [UNRECOGNIZED DRUG - REMARK] PO SCH (09:56)
[2017-09-04] MEDS: MINERALS AREDS2 PO SCH ×2 (09:56→19:53)
[2017-09-04] MEDS: MULTIVITAMINS PO SCH ×2 (09:56→19:53)
[2017-09-04] MEDS: COENZYME Q10 100 MG PO SCH (09:56)
[2017-09-04] MEDS: Lactobacillus Acidophilu (GG)* 1 CAP CAP PO SCH ×2 (09:57→19:53)
--- NOTE | 2017-09-04 10:07 | PN ---
Progress Note - Progress Note Date of Service: 09/04/17 SOAP: Subjective: CC:infective endocarditis HPI: 81 year old woman with left hdyronephrosis from obstructing stone s/p ureteral stent; complicated by E. fecalis bacteremia and aortic valve endocarditis. On amp and ceftriaxone. No fever or rash. Had liquid stool x2 yesterday, no abd pain, improved after stopping bowel regimen. Objective: [] Vital Signs Temp 36.7 C 09/04/17 07:55 Pulse 67 09/04/17 07:55 Resp 16 09/04/17 07:55 BP 130/73 09/04/17 07:55 Pulse Ox 99 09/04/17 07:55 Intake & Output 09/03/17 09/04/17 09/04/17 18:59 06:59 18:59 Intake Total 846 580 Output Total 0 Balance 846 580 Intake: IV Fluids 166 90 ABX - AMPICILLIN 108 ABX - CEFTRIAXONE 58 NS (0.9%) 90 IVPB 250 ABX - AMPICILLIN 200 ABX - CEFTRIAXONE 50 Oral 680 240 Output: Urine 0 Other: Estimated Void Medium # Bowel Movements 0 # Voids 2 0 Gen:awake, no distress HEENT:PERRL, MMM Neuro: Ox3, CN 2-12 intact; baseline decreased hearing BL Neck:supple Heart:RRR no murmur Lungs:CTA BL Abd:+BS NTND soft Skin: no rash MSK: no joint tenderness Laboratory Results - last 24 hr 09/04/17 09/04/17 09/04/17 05:50 05:50 05:50 WBC 8.8 RBC 3.37 L Hgb 10.8 L Hct 31 L MCV 91 MCH 32 H MCHC 35 RDW 13 Plt Count 349 MPV 8 Neut % (Auto) 79.3 Lymph % (Auto) 10.0 L [place] % (Auto) 7.6 Eos % (Auto) 2.4 Baso % (Auto) 0.7 Absolute Neuts (auto) 6.9 Absolute Lymphs (auto) 0.9 L Absolute Monos (auto) 0.7 Absolute Eos (auto) 0.2 Absolute Basos (auto) 0.1 Absolute Nucleated RBC 0 Nucleated RBC % 0 INR (Anticoag Therapy) 2.39 H Sodium 137 Potassium 3.6 Chloride 103 Carbon Dioxide 29 Anion Gap 5 BUN 19 Creatinine 1.11 H Est GFR ( Amer) 60.5 Est GFR (Non-Af Amer) 47.1 BUN/Creatinine Ratio 17.1 Glucose 99 Calcium 9.3 Total Bilirubin 0.30 AST 13 ALT 13 Alkaline Phosphatase 54 Total Protein 6.2 L Albumin 3.3 Globulin 2.9 Albumin/Globulin Ratio 1.1 Assessment: 1. Enterococcus infective endocarditis, aortic valve; tolerating antibiotics well 2. jail abx 3. Enterococcus UTI with infected obstructing stone s/p ureteral stent Plan: 1. amp 2 gm Q6hrs, ceftriaxone 1 gm IV Q12hrs day . Weekly CBC,CMP, CRP. LA in final week of antibiotics. 25 minutes face to face time >50% discussing antibiotic treatment plan and follow up imaging to monitor endocarditis.
[2017-09-04] MEDS: cefTRIAXone VIAL(*) 1,000 MG in NS 0.9% 50 ML* 50 ML IVPB SCH ×2 (11:15→22:28)
--- NOTE | 2017-09-04 14:53 | PN ---
Subjective Date of Service: 09/04/17 Interval History: HOSPITALIST PROGRESS NOTE Patient seen and examined at bedside. She feels well today. Diarrhea is less frequent after laxatives were changed to PRN. No fever, rash, N/V, tolerating diet well. States she is bored, but trying to catch up on her reading. Family History: Unchanged from Admission Social History: Unchanged from Admission Past Medical History: Unchanged from Admission Objective Active Medications: Acetaminophen (Tylenol Tab*) 650 mg PO Q4H PRN PRN Reason: FEVER/PAIN Last Admin: 09/03/17 22:50 Dose: 650 mg Al Hydrox/Mg Hydrox/Simethicone (Maalox Plus*) 30 ml PO Q6H PRN PRN Reason: INDIGESTION Atorvastatin Calcium (Lipitor*) 10 mg PO 1700 [facility] Last Admin: 09/03/17 16:17 Dose: 10 mg Cholecalciferol (Vitamin D Tab*) 2,000 units PO DAILY [facility] Last Admin: 09/04/17 09:55 Dose: 2,000 units Coenzyme Q10 (Coenzyme Q10 (Nf)) 1 cap PO DAILY [facility] Last Admin: 09/04/17 09:56 Dose: Not Given Heparin Sodium (Porcine) (Heparin Flush Picc/Ml/Cvc(*)) 1 - 3 ml FLUSH 0600, 1800 [facility] PRN Reason: Protocol Last Admin: 09/04/17 05:56 Dose: 1 ml Hydrochlorothiazide (Hydrodiuril Tab*) 25 mg PO DAILY [facility] Last Admin: 09/04/17 09:55 Dose: 25 mg Ampicillin Sodium 2 gm/ Sodium (Chloride) 100 mls @ 200 mls/hr IVPB Q6H [facility] Last Admin: 09/04/17 09:48 Dose: 200 mls/hr Ceftriaxone Sodium 1,000 mg/ (Sodium Chloride) 50 mls @ 200 mls/hr IVPB Q12H [facility] Last Admin: 09/04/17 11:15 Dose: 200 mls/hr Lactobacillus Rhamnosus (Culturelle*) 1 cap PO BID [facility] Last Admin: 09/04/17 09:57 Dose: 1 cap Magnesium Oxide (Magox 400 Tab*) 800 mg PO DAILY [facility] Last Admin: 09/04/17 09:55 Dose: 800 mg Multivitamins/Minerals (Preservision Areds 2) 1 cap PO BID [facility] Last Admin: 09/04/17 09:56 Dose: 1 cap Pto: Propafenone Hcl ([Rythmol Sr] 425 Mg) 425 mg PO BID [facility] Last Admin: 09/04/17 09:55 Dose: 425 mg Pto: Glucosamine/Chondroitin/Msm Joint Soother 1 dose PO BID [facility] PRN Reason: Protocol Last Admin: 09/04/17 09:54 Dose: 1 dose Pto: [place] (Mini Gel Capsules) 1 dose PO DAILY [facility] PRN Reason: Protocol Last Admin: 09/04/17 09:56 Dose: 1 dose Oxycodone/Acetaminophen (Percocet 5/325 Tab*) 1 tab PO Q4H PRN PRN Reason: Pain Pharmacy Profile Note (Coumadin Per Pharmacy*) 1 note FOLLOW UP .PER PHARMACY PROTOC [facility] PRN Reason: Protocol Senna (Senokot Tab*) 1 tab PO BID PRN PRN Reason: CONSTIPATION Spironolactone (Aldactone Tab*) 25 mg PO DAILY [facility] Last Admin: 09/04/17 09:55 Dose: 25 mg Warfarin Sodium (Coumadin Tab(*)) 5 mg PO 1700 [facility] Stop: 09/04/17 23:00 Vital Signs 09/03/17 09/04/17 09/04/17 20:00 07:55 08:00 Temperature 98.1 F Pulse Rate 67 Respiratory 18 16 16 Rate Blood Pressure 130/73 (mmHg) O2 Sat by Pulse 99 Oximetry Oxygen Devices in Use Now: None Appearance: Pleasant elderly lady sitting up in a chair in [facility]. Eyes: No Scleral Icterus Ears/Nose/Mouth/Throat: Mucous Membranes Moist Neck: Trachea Midline Respiratory: Symmetrical Chest Expansion and Respiratory Effort, Clear to Auscultation Cardiovascular: RRR - Normal S1 and S2 Neurological: Alert and Oriented x 3, NL Muscle Strength and Tone Result Diagrams: 09/04/17 05:50 09/04/17 05:50 Assess/Plan/Problems-Billing Assessment: Mrs. Roque is an 81yo F with PMH of HTN, HLD, Afib on AC, nephrolithiasis, admitted with left hydronephrosis secondary to ureteral stone s/p stent, complicated by E. faecalis septicemia and aortic valve endocarditis, now Swing status for 6 weeks of IV antibiotics. - Patient Problems (1) Endocarditis Comment: - ID input appreciated - Gentamicin was discontinued. Continue Ampicillin and Ceftriaxone day #. - Weekly CBC, CMP, CRP. - Echo to be repeated on her last week of antibiotics. (2) Atrial fibrillation Comment: - In NSR. - Continue Propafenone and Warfarin. (3) HTN (hypertension) Comment: - Controlled. - Continue HCTZ and aldactone. (4) DVT prophylaxis Comment: - Warfarin. (5) Full code status Status and Disposition: Swing status to complete 6 weeks of antibiotics.
[2017-09-04] MEDS: Atorvastatin* 10 MG TAB PO SCH (16:31)
[2017-09-04] MEDS ORDERED: Warfarin TAB(*) 5 MG PO SCH (17:00)
[2017-09-05] MEDS: Cholecalciferol TAB* 1000 UNITS PO SCH (09:00)
[2017-09-05] MEDS: Spironolactone TAB* 25 MG PO SCH (09:00)
[2017-09-05] MEDS: Magnesium Oxide TAB* 400 MG PO SCH (09:00)
[2017-09-05] MEDS: Hydrochlorothiazide TAB* 25 MG PO SCH (09:00)
[2017-09-05] MEDS: Lactobacillus Acidophilu (GG)* 1 CAP CAP PO SCH ×2 (09:00→21:29)
[2017-09-05] MEDS: PROPAFENONE HCL 425 MG PO SCH ×2 (09:03→21:32)
[2017-09-05] MEDS: CHONDROITIN PO SCH ×2 (09:03→21:30)
[2017-09-05] MEDS: METHYLSULFONYLMETHANE PO SCH ×2 (09:03→21:30)
[2017-09-05] MEDS: [UNRECOGNIZED DRUG - REMARK] PO SCH (09:03)
[2017-09-05] MEDS: MINERALS AREDS2 PO SCH ×2 (09:03→21:31)
[2017-09-05] MEDS: GLUCOSAMINE PO SCH ×2 (09:03→21:30)
[2017-09-05] MEDS: COENZYME Q10 100 MG PO SCH (09:03)
[2017-09-05] MEDS: MULTIVITAMINS PO SCH ×2 (09:03→21:31)
[2017-09-05] MEDS: cefTRIAXone VIAL(*) 1,000 MG in NS 0.9% 50 ML* 50 ML IVPB SCH ×2 (11:20→22:31)
--- NOTE | 2017-09-05 15:11 | PN ---
Subjective Date of Service: 09/05/17 Interval History: Some loose stools. No pain, SOB. No other c/o. Family History: Unchanged from Admission Social History: Unchanged from Admission Past Medical History: Unchanged from Admission Objective Active Medications: Acetaminophen (Tylenol Tab*) 650 mg PO Q4H PRN PRN Reason: FEVER/PAIN Last Admin: 09/03/17 22:50 Dose: 650 mg Al Hydrox/Mg Hydrox/Simethicone (Maalox Plus*) 30 ml PO Q6H PRN PRN Reason: INDIGESTION Atorvastatin Calcium (Lipitor*) 10 mg PO 1700 [facility] Last Admin: 09/04/17 16:31 Dose: 10 mg Cholecalciferol (Vitamin D Tab*) 2,000 units PO DAILY [facility] Last Admin: 09/05/17 09:00 Dose: 2,000 units Coenzyme Q10 (Coenzyme Q10 (Nf)) 1 cap PO DAILY [facility] Last Admin: 09/05/17 09:03 Dose: Not Given Heparin Sodium (Porcine) (Heparin Flush Picc/Ml/Cvc(*)) 1 - 3 ml FLUSH 0600, 1800 [facility] PRN Reason: Protocol Last Admin: 09/05/17 09:45 Dose: 1 ml Hydrochlorothiazide (Hydrodiuril Tab*) 25 mg PO DAILY [facility] Last Admin: 09/05/17 09:00 Dose: 25 mg Ampicillin Sodium 2 gm/ Sodium (Chloride) 100 mls @ 200 mls/hr IVPB Q6H [facility] Last Admin: 09/05/17 08:57 Dose: 200 mls/hr Ceftriaxone Sodium 1,000 mg/ (Sodium Chloride) 50 mls @ 200 mls/hr IVPB Q12H [facility] Last Admin: 09/05/17 11:20 Dose: 200 mls/hr Lactobacillus Rhamnosus (Culturelle*) 1 cap PO BID [facility] Last Admin: 09/05/17 09:00 Dose: 1 cap Magnesium Oxide (Magox 400 Tab*) 800 mg PO DAILY [facility] Last Admin: 09/05/17 09:00 Dose: 800 mg Multivitamins/Minerals (Preservision Areds 2) 1 cap PO BID [facility] Last Admin: 09/05/17 09:03 Dose: 1 cap Pto: Propafenone Hcl ([Rythmol Sr] 425 Mg) 425 mg PO BID [facility] Last Admin: 09/05/17 09:03 Dose: 425 mg Pto: Glucosamine/Chondroitin/Msm Joint Soother 1 dose PO BID [facility] PRN Reason: Protocol Last Admin: 09/05/17 09:03 Dose: 1 dose Pto: Carin [place] (Mini Gel Capsules) 1 dose PO DAILY [facility] PRN Reason: Protocol Last Admin: 09/05/17 09:03 Dose: 1 dose Oxycodone/Acetaminophen (Percocet 5/325 Tab*) 1 tab PO Q4H PRN PRN Reason: Pain Senna (Senokot Tab*) 1 tab PO BID PRN PRN Reason: CONSTIPATION Spironolactone (Aldactone Tab*) 25 mg PO DAILY [facility] Last Admin: 09/05/17 09:00 Dose: 25 mg Vital Signs 09/04/17 09/05/17 09/05/17 20:00 08:00 08:07 Temperature 98.2 F Pulse Rate 75 Respiratory 16 18 18 Rate Blood Pressure 126/65 (mmHg) O2 Sat by Pulse 97 Oximetry Oxygen Devices in Use Now: None Appearance: Alert, supine in bed. In good spirits. Looks comfortable. Eyes: No Scleral Icterus Neck: NL Appearance and Movements; NL JVP, No Thyroid Enlargement, Masses Respiratory: Symmetrical Chest Expansion and Respiratory Effort, Clear to Auscultation, Clear to Percussion Cardiovascular: NL Sounds; No Murmurs; No JVD, RRR, No Edema, - Extremities: No Edema, No Clubbing, Cyanosis, - Skin: No Rash or Ulcers, No Nodules or Sclerosis, - Neurological: Alert and Oriented x 3, NL Sensation Result Diagrams: 09/04/17 05:50 09/04/17 05:50 Assess/Plan/Problems-Billing Assessment: Mrs. Roque is an 81yo F with PMH of HTN, HLD, Afib on AC, nephrolithiasis, admitted with left hydronephrosis secondary to ureteral stone s/p stent, complicated by E. faecalis septicemia and aortic valve endocarditis, now Swing status for 6 weeks of IV antibiotics. - Patient Problems (1) Endocarditis Current Visit: Yes Status: Acute Code(s): I38 - ENDOCARDITIS, VALVE UNSPECIFIED SNOMED Code(s): 87438041 Comment: - ID input appreciated - Gentamicin was discontinued. Continue Ampicillin and Ceftriaxone last day 10/08/17. CRP 09/06. - Echo to be repeated on her last week of antibiotics. (2) Nephrolithiasis Current Visit: No Status: Acute Code(s): N20.0 - CALCULUS OF KIDNEY SNOMED Code(s): 61278249 Comment: s/p cysto and stent placement in L ureter by Dr. Ayala on 08/22/17. Repeat renal US on 08/23/17 shows resolution of hydronephrosis (3) Atrial fibrillation Current Visit: Yes Status: Acute Code(s): I48.91 - UNSPECIFIED ATRIAL FIBRILLATION SNOMED Code(s): 85183447 Comment: - In NSR. - Continue Propafenone and Warfarin. Warfarin 4 mg daily start 09/05/17, had 5 mg the 3 days before that. (4) HTN (hypertension) Current Visit: Yes Status: Acute Code(s): I10 - ESSENTIAL (PRIMARY) HYPERTENSION SNOMED Code(s): 96038986 Comment: - Controlled. - Continue HCTZ and aldactone. Status and Disposition: Swing status to complete 6 weeks of antibiotics.
[2017-09-05] MEDS: Warfarin TAB(*) 4 MG PO SCH (16:45)
[2017-09-05] MEDS: Atorvastatin* 10 MG TAB PO SCH (16:45)
[2017-09-06] MEDS: Magnesium Oxide TAB* 400 MG PO SCH (10:52)
[2017-09-06] MEDS: Spironolactone TAB* 25 MG PO SCH (10:52)
[2017-09-06] MEDS: Hydrochlorothiazide TAB* 25 MG PO SCH (10:52)
[2017-09-06] MEDS: Cholecalciferol TAB* 1000 UNITS PO SCH (10:52)
[2017-09-06] MEDS: Lactobacillus Acidophilu (GG)* 1 CAP CAP PO SCH ×2 (10:52→23:02)
[2017-09-06] MEDS: MINERALS AREDS2 PO SCH ×2 (10:53→23:05)
[2017-09-06] MEDS: MULTIVITAMINS PO SCH ×2 (10:53→23:05)
[2017-09-06] MEDS: [UNRECOGNIZED DRUG - REMARK] PO SCH (10:54)
[2017-09-06] MEDS: PROPAFENONE HCL 425 MG PO SCH ×2 (10:55→23:06)
[2017-09-06] MEDS: GLUCOSAMINE PO SCH ×2 (10:56→23:06)
[2017-09-06] MEDS: METHYLSULFONYLMETHANE PO SCH ×2 (10:56→23:06)
[2017-09-06] MEDS: CHONDROITIN PO SCH ×2 (10:56→23:06)
[2017-09-06] MEDS: COENZYME Q10 100 MG PO SCH (10:57)
[2017-09-06] MEDS: cefTRIAXone VIAL(*) 1,000 MG in NS 0.9% 50 ML* 50 ML IVPB SCH ×2 (11:28→23:53)
[2017-09-06] MEDS: Acetaminophen TAB* 325 MG PO PRN (16:51)
[2017-09-06] MEDS: Atorvastatin* 10 MG TAB PO SCH (17:05)
[2017-09-06] MEDS: Warfarin TAB(*) 4 MG PO SCH (17:05)
[2017-09-07] MEDS: COENZYME Q10 100 MG PO SCH (09:00)
[2017-09-07] MEDS: GLUCOSAMINE PO SCH ×2 (09:09→20:15)
[2017-09-07] MEDS: Hydrochlorothiazide TAB* 25 MG PO SCH (09:09)
[2017-09-07] MEDS: CHONDROITIN PO SCH ×2 (09:09→20:15)
[2017-09-07] MEDS: Magnesium Oxide TAB* 400 MG PO SCH (09:09)
[2017-09-07] MEDS: Spironolactone TAB* 25 MG PO SCH (09:09)
[2017-09-07] MEDS: METHYLSULFONYLMETHANE PO SCH ×2 (09:09→20:15)
[2017-09-07] MEDS: MINERALS AREDS2 PO SCH ×3 (09:09→21:05)
[2017-09-07] MEDS: Cholecalciferol TAB* 1000 UNITS PO SCH (09:09)
[2017-09-07] MEDS: MULTIVITAMINS PO SCH ×3 (09:09→21:05)
[2017-09-07] MEDS: PROPAFENONE HCL 425 MG PO SCH ×2 (09:10→21:04)
[2017-09-07] MEDS: [UNRECOGNIZED DRUG - REMARK] PO SCH (09:10)
[2017-09-07] MEDS: Lactobacillus Acidophilu (GG)* 1 CAP CAP PO SCH ×2 (09:26→20:15)
[2017-09-07] MEDS: cefTRIAXone VIAL(*) 1,000 MG in NS 0.9% 50 ML* 50 ML IVPB SCH ×2 (11:41→23:22)
[2017-09-07] MEDS: Warfarin TAB(*) 4 MG PO SCH (18:04)
[2017-09-07] MEDS: Atorvastatin* 10 MG TAB PO SCH (18:04)
[2017-09-08 06:15] LABS: Hematocrit 28 % (35-47); Mean Corpuscular HGB Conc 35 g/dl (31-36); Mean Corpuscular Hemoglobin 32 pg (27-31); Mean Corpuscular Volume 91 fL (80-97); Mean Platelet Volume 8 um3 (7.4-10.4); Red Blood Count 3.11 10^6/ul (4.0-5.4); Red Cell Distribution Width 13 % (10.5-15); White Blood Count 10.3 10^3/ul (3.5-10.8)
[2017-09-08 06:31] LABS: EGFR Non-African American 51.3 (>60)
[2017-09-08] MEDS: GLUCOSAMINE PO SCH ×2 (08:11→21:13)
[2017-09-08] MEDS: CHONDROITIN PO SCH ×2 (08:11→21:13)
[2017-09-08] MEDS: PROPAFENONE HCL 425 MG PO SCH ×2 (08:11→21:12)
[2017-09-08] MEDS: METHYLSULFONYLMETHANE PO SCH ×2 (08:11→21:13)
[2017-09-08] MEDS: MULTIVITAMINS PO SCH ×2 (08:12→21:13)
[2017-09-08] MEDS: MINERALS AREDS2 PO SCH ×2 (08:12→21:13)
[2017-09-08] MEDS: Acetaminophen TAB* 325 MG PO PRN (08:13)
[2017-09-08] MEDS: COENZYME Q10 100 MG PO SCH (08:13)
[2017-09-08] MEDS: Spironolactone TAB* 25 MG PO SCH (08:14)
[2017-09-08] MEDS: Cholecalciferol TAB* 1000 UNITS PO SCH (08:14)
[2017-09-08] MEDS: Magnesium Oxide TAB* 400 MG PO SCH (08:14)
[2017-09-08] MEDS: Lactobacillus Acidophilu (GG)* 1 CAP CAP PO SCH ×2 (08:14→21:11)
[2017-09-08] MEDS: Hydrochlorothiazide TAB* 25 MG PO SCH (08:15)
[2017-09-08] MEDS: [UNRECOGNIZED DRUG - REMARK] PO SCH ×2 (08:16→08:18)
[2017-09-08 10:48] LABS: C Reactive Protein 108.9 mg/L (< 5.00)
[2017-09-08] MEDS: cefTRIAXone VIAL(*) 1,000 MG in NS 0.9% 50 ML* 50 ML IVPB SCH ×2 (11:15→21:13)
--- NOTE | 2017-09-08 11:27 | PN ---
Progress Note - Progress Note Date of Service: 09/08/17 SOAP: Subjective: CC:infective endocarditis HPI: 81 year old woman with left hdyronephrosis from obstructing stone s/p ureteral stent; complicated by E. fecalis bacteremia and aortic valve endocarditis. On amp and ceftriaxone. Low grade fever and sweats 2 nights ago , felt fine since. Eating well, no rash or diarrhea. Objective: [] Vital Signs Temp 36.7 C 09/08/17 07:53 Pulse 79 09/08/17 07:53 Resp 18 09/08/17 08:00 BP 124/70 09/08/17 07:53 Pulse Ox 96 09/08/17 07:53 Intake & Output 09/07/17 09/08/17 09/08/17 18:59 06:59 18:59 Intake Total 1685 75 100 Balance 1685 75 100 Intake: IV Fluids 20 20 NS (0.9%) 20 20 IVPB 225 55 100 ABX - AMPICILLIN 167 100 ABX - CEFTRIAXONE 58 55 Oral 1440 0 0 Other: Estimated Void Large # Bowel Movements 1 Estimated Stool Amount Large # Voids 1 Gen:awake, no distress HEENT:PERRL, MMM Neuro: Ox3, CN 2-12 intact; baseline decreased hearing BL Neck:supple Heart:RRR no murmur Lungs:CTA BL Abd:+BS NTND soft Skin: no rash MSK: no joint tenderness Laboratory Results - last 24 hr 09/08/17 09/08/17 09/08/17 06:00 06:00 06:00 WBC 10.3 RBC 3.11 L Hgb 10.0 L Hct 28 L MCV 91 MCH 32 H MCHC 35 RDW 13 Plt Count 295 MPV 8 Neut % (Auto) 82.5 Lymph % (Auto) 6.3 L [place] % (Auto) 9.3 H Eos % (Auto) 1.3 Baso % (Auto) 0.6 Absolute Neuts (auto) 8.5 H Absolute Lymphs (auto) 0.7 L Absolute Monos (auto) 1.0 H Absolute Eos (auto) 0.1 Absolute Basos (auto) 0.1 Absolute Nucleated RBC 0 Nucleated RBC % 0 INR (Anticoag Therapy) 2.68 H BUN 16 Creatinine 1.03 H Est GFR ( Amer) 66.0 Est GFR (Non-Af Amer) 51.3 C-Reactive Protein 108.90 H Microbiology 09/06/17 17:55 Aerobic Blood Culture - Preliminary Blood Venous No Growth Day 1 Anaerobic Blood Culture - Preliminary No Growth Day 1 09/06/17 17:19 Aerobic Blood Culture - Preliminary Blood Venous No Growth Day 1 Anaerobic Blood Culture - Preliminary No Growth Day 1 09/06/17 18:35 Urine Culture - Final Urine No Growth (<1,000 CFU/mL) Assessment: 1. Enterococcus infective endocarditis, aortic valve; tolerating antibiotics well 2. alf abx 3. Enterococcus UTI with infected obstructing stone s/p ureteral stent 4. elevated CRP with sweats though now resolved Plan: 1. incr amp to 2 gm Q4hrs with improved GFR, ceftriaxone 1 gm IV Q12hrs day . Recheck CRP today otherwise weekly CBC,CMP, CRP. LA in final week of antibiotics.
[2017-09-08] MEDS: Atorvastatin* 10 MG TAB PO SCH (16:25)
[2017-09-08] MEDS: Warfarin TAB(*) 4 MG PO SCH (16:25)
[2017-09-09 05:22] LABS: Hematocrit 27 % (35-47); Hemoglobin 9.4 g/dl (12.0-16.0); Mean Corpuscular HGB Conc 35 g/dl (31-36); Mean Corpuscular Hemoglobin 32 pg (27-31); Mean Corpuscular Volume 91 fL (80-97); Mean Platelet Volume 7 um3 (7.4-10.4); Red Blood Count 2.92 10^6/ul (4.0-5.4); Red Cell Distribution Width 13 % (10.5-15); White Blood Count 9.1 10^3/ul (3.5-10.8)
[2017-09-09] MEDS: Acetaminophen TAB* 325 MG PO PRN (07:28)
[2017-09-09] MEDS: Cholecalciferol TAB* 1000 UNITS PO SCH (09:22)
[2017-09-09] MEDS: Hydrochlorothiazide TAB* 25 MG PO SCH (09:23)
[2017-09-09] MEDS: Lactobacillus Acidophilu (GG)* 1 CAP CAP PO SCH ×2 (09:24→20:31)
[2017-09-09] MEDS: CHONDROITIN PO SCH ×2 (09:24→20:30)
[2017-09-09] MEDS: Magnesium Oxide TAB* 400 MG PO SCH (09:24)
[2017-09-09] MEDS: GLUCOSAMINE PO SCH ×2 (09:24→20:30)
[2017-09-09] MEDS: METHYLSULFONYLMETHANE PO SCH ×2 (09:24→20:30)
[2017-09-09] MEDS: Spironolactone TAB* 25 MG PO SCH (09:26)
[2017-09-09] MEDS: [UNRECOGNIZED DRUG - REMARK] PO SCH (09:27)
[2017-09-09] MEDS: MINERALS AREDS2 PO SCH ×2 (09:29→20:30)
[2017-09-09] MEDS: MULTIVITAMINS PO SCH ×2 (09:29→20:30)
[2017-09-09] MEDS: PROPAFENONE HCL 425 MG PO SCH ×2 (09:29→20:30)
[2017-09-09] MEDS: COENZYME Q10 100 MG PO SCH (09:30)
[2017-09-09] MEDS: cefTRIAXone VIAL(*) 1,000 MG in NS 0.9% 50 ML* 50 ML IVPB SCH ×2 (11:02→23:08)
[2017-09-09] MEDS: Atorvastatin* 10 MG TAB PO SCH (16:07)
[2017-09-09] MEDS: Warfarin TAB(*) 4 MG PO SCH (16:07)
[2017-09-10] MEDS: Acetaminophen TAB* 325 MG PO PRN (02:50)
[2017-09-10 06:00] LABS: Hematocrit 31 % (35-47); Hemoglobin 10.6 g/dl (12.0-16.0); Mean Corpuscular HGB Conc 35 g/dl (31-36); Mean Corpuscular Hemoglobin 32 pg (27-31); Mean Corpuscular Volume 91 fL (80-97); Mean Platelet Volume 8 um3 (7.4-10.4); Red Blood Count 3.35 10^6/ul (4.0-5.4); Red Cell Distribution Width 13 % (10.5-15); White Blood Count 8.9 10^3/ul (3.5-10.8)
[2017-09-10] MEDS: Magnesium Oxide TAB* 400 MG PO SCH (07:56)
[2017-09-10] MEDS: Spironolactone TAB* 25 MG PO SCH (07:56)
[2017-09-10] MEDS: Cholecalciferol TAB* 1000 UNITS PO SCH (07:56)
[2017-09-10] MEDS: Hydrochlorothiazide TAB* 25 MG PO SCH (07:56)
[2017-09-10] MEDS: Lactobacillus Acidophilu (GG)* 1 CAP CAP PO SCH ×2 (07:56→20:14)
[2017-09-10] MEDS: METHYLSULFONYLMETHANE PO SCH ×2 (07:57→20:14)
[2017-09-10] MEDS: GLUCOSAMINE PO SCH ×2 (07:57→20:14)
[2017-09-10] MEDS: [UNRECOGNIZED DRUG - REMARK] PO SCH (07:57)
[2017-09-10] MEDS: CHONDROITIN PO SCH ×2 (07:57→20:14)
[2017-09-10] MEDS: COENZYME Q10 100 MG PO SCH (07:58)
[2017-09-10] MEDS: MINERALS AREDS2 PO SCH ×2 (07:58→20:14)
[2017-09-10] MEDS: PROPAFENONE HCL 425 MG PO SCH ×2 (07:58→20:14)
[2017-09-10] MEDS: MULTIVITAMINS PO SCH ×2 (07:58→20:14)
[2017-09-10] MEDS: cefTRIAXone VIAL(*) 1,000 MG in NS 0.9% 50 ML* 50 ML IVPB SCH ×2 (11:20→23:09)
[2017-09-10] MEDS: Warfarin TAB(*) 4 MG PO SCH (16:26)
[2017-09-10] MEDS: Atorvastatin* 10 MG TAB PO SCH (16:26)
[2017-09-11 05:37] LABS: Hematocrit 27 % (35-47); Hemoglobin 9.7 g/dl (12.0-16.0); Mean Corpuscular HGB Conc 35 g/dl (31-36); Mean Corpuscular Hemoglobin 32 pg (27-31); Mean Corpuscular Volume 90 fL (80-97); Mean Platelet Volume 8 um3 (7.4-10.4); Red Blood Count 3.03 10^6/ul (4.0-5.4); Red Cell Distribution Width 13 % (10.5-15); White Blood Count 7.5 10^3/ul (3.5-10.8)
[2017-09-11 05:53] LABS: Albumin 3.1 g/dL (3.2-5.2); BUN/Creatinine Ratio 14.4 (8-20); C Reactive Protein 97.61 mg/L (< 5.00); Calcium 9.3 mg/dL (8.6-10.3); EGFR African American 60.5 (>60); EGFR Non-African American 47.1 (>60); Globulin 3.2 g/dL (2-4); Potassium 3.4 mmol/L (3.5-5.0); Total Bilirubin 0.3 mg/dL (0.2-1.0); Total Protein 6.3 g/dL (6.4-8.9)
[2017-09-11] MEDS: Hydrochlorothiazide TAB* 25 MG PO SCH (08:41)
[2017-09-11] MEDS: Cholecalciferol TAB* 1000 UNITS PO SCH (08:41)
[2017-09-11] MEDS: Magnesium Oxide TAB* 400 MG PO SCH (08:41)
[2017-09-11] MEDS: MINERALS AREDS2 PO SCH ×2 (08:42→20:30)
[2017-09-11] MEDS: Spironolactone TAB* 25 MG PO SCH (08:42)
[2017-09-11] MEDS: MULTIVITAMINS PO SCH ×2 (08:42→20:30)
[2017-09-11] MEDS: Lactobacillus Acidophilu (GG)* 1 CAP CAP PO SCH ×2 (08:42→20:25)
[2017-09-11] MEDS: CHONDROITIN PO SCH ×2 (08:43→20:30)
[2017-09-11] MEDS: [UNRECOGNIZED DRUG - REMARK] PO SCH (08:43)
[2017-09-11] MEDS: GLUCOSAMINE PO SCH ×2 (08:43→20:30)
[2017-09-11] MEDS: METHYLSULFONYLMETHANE PO SCH ×2 (08:43→20:30)
[2017-09-11] MEDS: PROPAFENONE HCL 425 MG PO SCH ×2 (08:47→20:30)
--- NOTE | 2017-09-11 09:25 | PN ---
Progress Note - Progress Note Date of Service: 09/11/17 SOAP: Subjective: CC:infective endocarditis HPI: 81 year old woman with left hydronephrosis from obstructing stone s/p ureteral stent; complicated by E. fecalis bacteremia and aortic valve endocarditis. On amp and ceftriaxone. No fever, rash, or diarrhea. Objective: [] Vital Signs Temp 36.7 C 09/08/17 07:53 Pulse 79 09/08/17 07:53 Resp 18 09/08/17 08:00 BP 124/70 09/08/17 07:53 Pulse Ox 96 09/08/17 07:53 Intake & Output 09/07/17 09/08/17 09/08/17 18:59 06:59 18:59 Intake Total 1685 75 100 Balance 1685 75 100 Intake: IV Fluids 20 20 NS (0.9%) 20 20 IVPB 225 55 100 ABX - AMPICILLIN 167 100 ABX - CEFTRIAXONE 58 55 Oral 1440 0 0 Other: Estimated Void Large # Bowel Movements 1 Estimated Stool Amount Large # Voids 1 Gen:awake, no distress HEENT:PERRL, MMM Neuro: Ox3, CN 2-12 intact; baseline decreased hearing BL Neck:supple Heart:RRR no murmur Lungs:CTA BL Abd:+BS NTND soft Skin: no rash MSK: no joint tenderness Laboratory Results - last 24 hr 09/11/17 09/11/17 05:20 05:20 WBC 7.5 RBC 3.03 L Hgb 9.7 L Hct 27 L MCV 90 MCH 32 H MCHC 35 RDW 13 Plt Count 294 MPV 8 Neut % (Auto) 71.5 Lymph % (Auto) 15.1 L [place] % (Auto) 9.9 H Eos % (Auto) 2.9 Baso % (Auto) 0.6 Absolute Neuts (auto) 5.4 Absolute Lymphs (auto) 1.1 Absolute Monos (auto) 0.7 Absolute Eos (auto) 0.2 Absolute Basos (auto) 0 Absolute Nucleated RBC 0 Nucleated RBC % 0 Sodium 137 Potassium 3.4 L Chloride 101 Carbon Dioxide 29 Anion Gap 7 BUN 16 Creatinine 1.11 H Est GFR ( Amer) 60.5 Est GFR (Non-Af Amer) 47.1 BUN/Creatinine Ratio 14.4 Glucose 99 Calcium 9.3 Total Bilirubin 0.30 AST 12 L ALT 10 Alkaline Phosphatase 51 C-Reactive Protein 97.61 H Total Protein 6.3 L Albumin 3.1 L Globulin 3.2 Albumin/Globulin Ratio 1.0 Assessment: 1. 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 Enterococcus UTI with infected obstructing stone s/p ureteral stent 4. elevated CRP Plan: 1. continue amp 2 gm Q4hrs with improved GFR, ceftriaxone 1 gm IV Q12hrs day . As CRP is significantly elevated will check Trans thoracic and discuss stent/stone treatment with Dr Ayala.
[2017-09-11] MEDS: COENZYME Q10 100 MG PO SCH (09:31)
[2017-09-11] MEDS: cefTRIAXone VIAL(*) 1,000 MG in NS 0.9% 50 ML* 50 ML IVPB SCH ×2 (11:25→22:48)
[2017-09-11] MEDS: Atorvastatin* 10 MG TAB PO SCH (16:05)
[2017-09-11] MEDS: Acetaminophen TAB* 325 MG PO PRN (23:10)
[2017-09-12] MEDS: Hydrochlorothiazide TAB* 25 MG PO SCH (08:15)
[2017-09-12] MEDS: Lactobacillus Acidophilu (GG)* 1 CAP CAP PO SCH ×2 (08:15→21:37)
[2017-09-12] MEDS: Magnesium Oxide TAB* 400 MG PO SCH (08:15)
[2017-09-12] MEDS: Spironolactone TAB* 25 MG PO SCH (08:16)
[2017-09-12] MEDS: MINERALS AREDS2 PO SCH ×2 (08:16→21:39)
[2017-09-12] MEDS: MULTIVITAMINS PO SCH ×2 (08:16→21:39)
[2017-09-12] MEDS: Cholecalciferol TAB* 1000 UNITS PO SCH (08:16)
[2017-09-12] MEDS: CHONDROITIN PO SCH ×2 (08:17→21:39)
[2017-09-12] MEDS: GLUCOSAMINE PO SCH ×2 (08:17→21:39)
[2017-09-12] MEDS: PROPAFENONE HCL 425 MG PO SCH ×2 (08:17→21:39)
[2017-09-12] MEDS: METHYLSULFONYLMETHANE PO SCH ×2 (08:17→21:39)
[2017-09-12] MEDS: COENZYME Q10 100 MG PO SCH (08:18)
[2017-09-12] MEDS: [UNRECOGNIZED DRUG - REMARK] PO SCH (08:19)
--- NOTE | 2017-09-12 11:02 | ECHO ---
Patient: LORAINE WHITNEY [facility] Rec#: [id number] : 1935 Date: 09/12/2017 Age: 81y Height: 160 cm / 63.0 in Weight: 82.1 kg / 180.9 lbs Sex: F BSA: 1.85 Room#: [facility] Admit Date#: 09/11/2017 Type: Inpatient Referring: Wesley Reyes MD Reading: Boyd Kmi MD Casting Inspector: Yvonne DanielRHODA CC: Alexis Beaulieu Transthoracic Echocardiogram Indication: Endocarditis BP: 110/56 HR: 70 Rhythm: NSR Findings History: Enterococcus faccalis positive blood cultures, a-fib, HTN, HLD, nephrolithiasis, 1.1 cm x 1.0 cm vegetation on the LCC of the aortic valve 08/25/17. This is a LIMITED study to re-evaluate all of the heart valves. Technical Comments: The study quality is good. Completed at 1015. Left Ventricle: Global left ventricular wall motion and contractility are within normal limits. There is normal left ventricular systolic function. The estimated ejection fraction is 55-60%. Aortic Valve: The aortic valve is trileaflet. The aortic valve leaflets are mildly thickened. There is a trace of aortic regurgitation. There is no evidence of aortic stenosis. A mass is visualized on the aortic valve which appears consistent with a vegetation.The mass measures 0.8 cm by 0.9 cm and is located on the left coronary cusp of the aortic valve Mitral Valve: There is mitral annular calcification. The mitral valve leaflets are mildly thickened. No vegetation is observed on the mitral valve. Tricuspid Valve: No vegetation is observed on the tricuspid valve. Pulmonic Valve: No vegetation is observed on the pulmonic valve. Conclusions Global left ventricular wall motion and contractility are within normal limits. There is normal left ventricular systolic function. The estimated ejection fraction is 55-60%. The aortic valve leaflets are mildly thickened. A mass is visualized on the aortic valve which appears consistent with a vegetation.The mass measures 0.8 cm by 0.9 cm and is located on the left coronary cusp of the aortic valve There is a trace of aortic regurgitation. The mitral valve leaflets are mildly thickened. No vegetation is observed on the mitral valve. No vegetation is observed on the tricuspid valve. No vegetation is observed on the pulmonic valve. Compared to LA done on 08/25/17, there is no change in the aortic valve
[2017-09-12] MEDS: Potassium Chlor TAB* 20 MEQ TAB.ER PO SCH ×2 (11:23→21:37)
[2017-09-12] MEDS: cefTRIAXone VIAL(*) 1,000 MG in NS 0.9% 50 ML* 50 ML IVPB SCH ×2 (11:26→23:35)
[2017-09-12] MEDS: Atorvastatin* 10 MG TAB PO SCH (16:44)
--- NOTE | 2017-09-12 20:45 | RAD ---
Indication: Left flank pain after stent placement. CT of the abdomen and pelvis was performed without oral or IV contrast administration. Coronal and sagittal reconstructed images were obtained. The lung bases demonstrate no pleural fluid, nodules or masses. Heart demonstrates no pericardial effusion. Extensive calcifications are noted in both breasts. Liver is normal in size. No focal lesions or intrahepatic duct dilatation. The gallbladder demonstrates thickened gallbladder wall with multiple gallstones within the gallbladder. Gallbladder is partially contracted. The common duct is dilated. The pancreas demonstrates no mass or pancreatic duct dilatation. The spleen is normal in size. There is a low density lesion in the left adrenal gland measuring measuring up to 17 mm. This is unchanged from previous exam of August 22, 2017. The right kidney shows no hydronephrosis. There is a left ureteral stent in place. No evidence of periureteral hematoma is noted. No definite hernias are identified. The uterus demonstrates myomatous changes. No adnexal masses are noted. IMPRESSION: Left ureteral stent in place. No evidence of periureteral hematoma or perinephric hematoma is noted. The gallbladder is filled with gallstones and is partially contracted. Myomatous changes of the uterus are noted.
[2017-09-12] MEDS: Acetaminophen TAB* 325 MG PO PRN (21:37)
[2017-09-13] MEDS: COENZYME Q10 100 MG PO SCH (07:55)
[2017-09-13] MEDS: GLUCOSAMINE PO SCH ×2 (08:06→21:24)
[2017-09-13] MEDS: PROPAFENONE HCL 425 MG PO SCH ×2 (08:06→22:07)
[2017-09-13] MEDS: MULTIVITAMINS PO SCH ×2 (08:06→21:23)
[2017-09-13] MEDS: CHONDROITIN PO SCH ×2 (08:06→21:24)
[2017-09-13] MEDS: METHYLSULFONYLMETHANE PO SCH ×2 (08:06→21:24)
[2017-09-13] MEDS: MINERALS AREDS2 PO SCH ×2 (08:06→21:23)
[2017-09-13] MEDS: Magnesium Oxide TAB* 400 MG PO SCH (08:07)
[2017-09-13] MEDS: Cholecalciferol TAB* 1000 UNITS PO SCH (08:07)
[2017-09-13] MEDS: Lactobacillus Acidophilu (GG)* 1 CAP CAP PO SCH ×2 (08:07→21:23)
[2017-09-13] MEDS: Hydrochlorothiazide TAB* 25 MG PO SCH (08:07)
[2017-09-13] MEDS: Spironolactone TAB* 25 MG PO SCH (08:07)
[2017-09-13] MEDS: [UNRECOGNIZED DRUG - REMARK] PO SCH (09:03)
[2017-09-13] MEDS: cefTRIAXone VIAL(*) 1,000 MG in NS 0.9% 50 ML* 50 ML IVPB SCH ×2 (12:39→22:38)
--- NOTE | 2017-09-13 16:06 | PN ---
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 She offers no new complaints. States she's "bored" from being here so long, especially with the food. Family History: Unchanged from Admission Social History: Unchanged from Admission Past Medical History: Unchanged from Admission Objective Active Medications: Acetaminophen (Tylenol Tab*) 650 mg PO Q4H PRN PRN Reason: FEVER/PAIN Last Admin: 09/12/17 21:37 Dose: 650 mg Al Hydrox/Mg Hydrox/Simethicone (Maalox Plus*) 30 ml PO Q6H PRN PRN Reason: INDIGESTION Atorvastatin Calcium (Lipitor*) 10 mg PO 1700 [facility] Last Admin: 09/12/17 16:44 Dose: 10 mg Cholecalciferol (Vitamin D Tab*) 2,000 units PO DAILY [facility] Last Admin: 09/13/17 08:07 Dose: 2,000 units Coenzyme Q10 (Coenzyme Q10 (Nf)) 1 cap PO DAILY [facility] Last Admin: 09/13/17 07:55 Dose: Not Given Heparin Sodium (Porcine) (Heparin Flush Picc/Ml/Cvc(*)) 1 - 3 ml FLUSH 0600, 1800 [facility] PRN Reason: Protocol Last Admin: 09/13/17 15:23 Dose: 1 ml Hydrochlorothiazide (Hydrodiuril Tab*) 25 mg PO DAILY [facility] Last Admin: 09/13/17 08:07 Dose: 25 mg Ceftriaxone Sodium 1,000 mg/ (Sodium Chloride) 50 mls @ 200 mls/hr IVPB Q12H [facility] Last Admin: 09/13/17 12:39 Dose: 200 mls/hr Ampicillin Sodium 2 gm/ Sodium (Chloride) 100 mls @ 200 mls/hr IVPB Q4H [facility] Last Admin: 09/13/17 13:26 Dose: 200 mls/hr Lactobacillus Rhamnosus (Culturelle*) 1 cap PO BID [facility] Last Admin: 09/13/17 08:07 Dose: 1 cap Magnesium Oxide (Magox 400 Tab*) 800 mg PO DAILY [facility] Last Admin: 09/13/17 08:07 Dose: 800 mg Multivitamins/Minerals (Preservision Areds 2) 1 cap PO BID [facility] Last Admin: 09/13/17 08:06 Dose: 1 cap Pto: Propafenone Hcl ([Rythmol Sr] 425 Mg) 425 mg PO BID [facility] Last Admin: 09/13/17 08:06 Dose: 425 mg Pto: Glucosamine/Chondroitin/Msm Joint Soother 1 dose PO BID [facility] PRN Reason: Protocol Last Admin: 09/13/17 08:06 Dose: 1 dose Pto: Carin [place] (Mini Gel Capsules) 1 dose PO DAILY [facility] PRN Reason: Protocol Last Admin: 09/13/17 09:03 Dose: Not Given Senna (Senokot Tab*) 1 tab PO BID PRN PRN Reason: CONSTIPATION Spironolactone (Aldactone Tab*) 25 mg PO DAILY [facility] Last Admin: 09/13/17 08:07 Dose: 25 mg Warfarin Sodium (Coumadin Tab(*)) 4 mg PO DAILY@1700 [facility] PRN Reason: Protocol Vital Signs 09/12/17 09/13/17 09/13/17 20:00 07:35 07:54 Temperature 97.9 F Pulse Rate 67 Respiratory 16 15 16 Rate Blood Pressure 125/64 (mmHg) O2 Sat by Pulse 97 Oximetry Oxygen Devices in Use Now: None Appearance: Pleasant elderly lady sitting up in bed in NAD. Eyes: No Scleral Icterus Ears/Nose/Mouth/Throat: Mucous Membranes Moist Neck: Trachea Midline Respiratory: Symmetrical Chest Expansion and Respiratory Effort, Clear to Auscultation Cardiovascular: RRR - Normal S1 and S2 Neurological: Alert and Oriented x 3, NL Muscle Strength and Tone Result Diagrams: 09/11/17 05:20 09/11/17 05:20 Assess/Plan/Problems-Billing Assessment: Mrs. Roque is an 81yo F with PMH of HTN, HLD, Afib on AC, nephrolithiasis, admitted with left hydronephrosis secondary to ureteral stone s/p stent, complicated by E. faecalis septicemia and aortic valve endocarditis, now Swing status for 6 weeks of IV antibiotics. - Patient Problems (1) Endocarditis Comment: - ID input appreciated - Gentamicin was discontinued. Continue Ampicillin and Ceftriaxone last day 10/08/17. - TTE showed unchanged AV vegetation. - LA to be repeated on her last week of antibiotics. - CT abdome/pelvis showed left ureteral stent in place - will d/w Urology when do they plan to have stent removed. (2) Atrial fibrillation Comment: - In NSR. - Continue Propafenone and Warfarin and monitor INR. (3) HTN (hypertension) Comment: - Controlled. - Continue HCTZ and aldactone. (4) DVT prophylaxis Comment: - Warfarin. (5) Full code status Status and Disposition: Swing status to complete 6 weeks of antibiotics.
[2017-09-13] MEDS ORDERED: Warfarin TAB(*) 4 MG PO SCH (17:00)
[2017-09-13] MEDS: Atorvastatin* 10 MG TAB PO SCH (17:28)
[2017-09-13] MEDS: Acetaminophen TAB* 325 MG PO PRN (21:23)
[2017-09-14] MEDS: COENZYME Q10 100 MG PO SCH (08:44)
[2017-09-14] MEDS: Cholecalciferol TAB* 1000 UNITS PO SCH (08:54)
[2017-09-14] MEDS: Lactobacillus Acidophilu (GG)* 1 CAP CAP PO SCH ×2 (08:54→19:56)
[2017-09-14] MEDS: Hydrochlorothiazide TAB* 25 MG PO SCH (08:54)
[2017-09-14] MEDS: MINERALS AREDS2 PO SCH ×2 (08:55→19:56)
[2017-09-14] MEDS: Spironolactone TAB* 25 MG PO SCH (08:55)
[2017-09-14] MEDS: MULTIVITAMINS PO SCH ×2 (08:55→19:56)
[2017-09-14] MEDS: CHONDROITIN PO SCH ×2 (08:55→19:56)
[2017-09-14] MEDS: METHYLSULFONYLMETHANE PO SCH ×2 (08:55→19:56)
[2017-09-14] MEDS: Magnesium Oxide TAB* 400 MG PO SCH (08:55)
[2017-09-14] MEDS: PROPAFENONE HCL 425 MG PO SCH ×2 (08:55→19:56)
[2017-09-14] MEDS: GLUCOSAMINE PO SCH ×2 (08:55→19:56)
[2017-09-14] MEDS: Potassium Chlor TAB* 20 MEQ TAB.ER PO SCH (08:56)
[2017-09-14] MEDS: [UNRECOGNIZED DRUG - REMARK] PO SCH (08:56)
[2017-09-14] MEDS: cefTRIAXone VIAL(*) 1,000 MG in NS 0.9% 50 ML* 50 ML IVPB SCH ×2 (11:18→23:27)
[2017-09-14] MEDS: Atorvastatin* 10 MG TAB PO SCH (16:10)
[2017-09-14] MEDS ORDERED: Warfarin TAB(*) 5 MG PO ONE (17:00)
[2017-09-15 05:43] LABS: Hematocrit 27 % (35-47); Hemoglobin 9.1 g/dl (12.0-16.0); Mean Platelet Volume 8 um3 (7.4-10.4)
[2017-09-15] MEDS: Cholecalciferol TAB* 1000 UNITS PO SCH (08:02)
[2017-09-15] MEDS: PROPAFENONE HCL 425 MG PO SCH ×2 (08:04→20:05)
[2017-09-15] MEDS: [UNRECOGNIZED DRUG - REMARK] PO SCH (08:04)
[2017-09-15] MEDS: MULTIVITAMINS PO SCH ×2 (08:05→20:04)
[2017-09-15] MEDS: MINERALS AREDS2 PO SCH ×2 (08:05→20:04)
[2017-09-15] MEDS: Hydrochlorothiazide TAB* 25 MG PO SCH (08:06)
[2017-09-15] MEDS: Magnesium Oxide TAB* 400 MG PO SCH (08:06)
[2017-09-15] MEDS: Potassium Chlor TAB* 20 MEQ TAB.ER PO SCH (08:07)
[2017-09-15] MEDS: Lactobacillus Acidophilu (GG)* 1 CAP CAP PO SCH ×2 (08:08→19:59)
[2017-09-15] MEDS: Spironolactone TAB* 25 MG PO SCH (08:08)
[2017-09-15] MEDS: COENZYME Q10 100 MG PO SCH (08:09)
[2017-09-15] MEDS: GLUCOSAMINE PO SCH ×2 (08:10→20:05)
[2017-09-15] MEDS: METHYLSULFONYLMETHANE PO SCH ×2 (08:10→20:05)
[2017-09-15] MEDS: CHONDROITIN PO SCH ×2 (08:10→20:05)
[2017-09-15] MEDS: cefTRIAXone VIAL(*) 1,000 MG in NS 0.9% 50 ML* 50 ML IVPB SCH ×2 (11:00→23:25)
[2017-09-15] MEDS: Atorvastatin* 10 MG TAB PO SCH (16:23)
--- NOTE | 2017-09-15 16:34 | RAD ---
INDICATION: Left-sided nephrolithiasis. Left ureteral stent COMPARISON: CT September 12, 2017; [facility] August 22, 2017 TECHNIQUE: A single view of the abdomen is submitted. FINDINGS: Bones: There are no acute bony findings. Soft tissues: The soft tissues appear normal. The psoas margins are sharp. Bowel gas pattern: Normal Calcifications: There is a 5 mm lower pole left renal calculus, unchanged. Other: There is a left ureteral stent in expected position. IMPRESSION: 5 MM LOWER POLE LEFT RENAL CALCULUS. LEFT URETERAL STENT IN EXPECTED POSITION.
[2017-09-15] MEDS ORDERED: Warfarin TAB(*) 5 MG PO ONE (17:00)
[2017-09-16] MEDS: COENZYME Q10 100 MG PO SCH (07:27)
[2017-09-16] MEDS: Potassium Chlor TAB* 20 MEQ TAB.ER PO SCH (08:12)
[2017-09-16] MEDS: Magnesium Oxide TAB* 400 MG PO SCH (08:12)
[2017-09-16] MEDS: Cholecalciferol TAB* 1000 UNITS PO SCH (08:12)
[2017-09-16] MEDS: Lactobacillus Acidophilu (GG)* 1 CAP CAP PO SCH ×2 (08:12→20:14)
[2017-09-16] MEDS: Hydrochlorothiazide TAB* 25 MG PO SCH (08:12)
[2017-09-16] MEDS: MULTIVITAMINS PO SCH ×2 (08:13→20:14)
[2017-09-16] MEDS: MINERALS AREDS2 PO SCH ×2 (08:13→20:14)
[2017-09-16] MEDS: [UNRECOGNIZED DRUG - REMARK] PO SCH (08:13)
[2017-09-16] MEDS: Spironolactone TAB* 25 MG PO SCH (08:13)
[2017-09-16] MEDS: PROPAFENONE HCL 425 MG PO SCH ×2 (08:13→20:14)
[2017-09-16] MEDS: CHONDROITIN PO SCH ×2 (08:16→20:14)
[2017-09-16] MEDS: GLUCOSAMINE PO SCH ×2 (08:16→20:14)
[2017-09-16] MEDS: METHYLSULFONYLMETHANE PO SCH ×2 (08:16→20:14)
[2017-09-16] MEDS: cefTRIAXone VIAL(*) 1,000 MG in NS 0.9% 50 ML* 50 ML IVPB SCH ×2 (11:24→23:19)
[2017-09-16] MEDS: Atorvastatin* 10 MG TAB PO SCH (16:57)
[2017-09-16] MEDS ORDERED: Warfarin TAB(*) 5 MG PO ONE (17:00)
[2017-09-17] MEDS: Magnesium Oxide TAB* 400 MG PO SCH (08:49)
[2017-09-17] MEDS: Cholecalciferol TAB* 1000 UNITS PO SCH (08:49)
[2017-09-17] MEDS: Potassium Chlor TAB* 20 MEQ TAB.ER PO SCH (08:49)
[2017-09-17] MEDS: Spironolactone TAB* 25 MG PO SCH (08:49)
[2017-09-17] MEDS: Hydrochlorothiazide TAB* 25 MG PO SCH (08:49)
[2017-09-17] MEDS: Lactobacillus Acidophilu (GG)* 1 CAP CAP PO SCH ×2 (08:49→20:07)
[2017-09-17] MEDS: PROPAFENONE HCL 425 MG PO SCH ×2 (08:50→20:07)
[2017-09-17] MEDS: MULTIVITAMINS PO SCH ×2 (08:51→20:07)
[2017-09-17] MEDS: CHONDROITIN PO SCH ×2 (08:51→20:07)
[2017-09-17] MEDS: GLUCOSAMINE PO SCH ×2 (08:51→20:07)
[2017-09-17] MEDS: METHYLSULFONYLMETHANE PO SCH ×2 (08:51→20:07)
[2017-09-17] MEDS: MINERALS AREDS2 PO SCH ×2 (08:51→20:07)
[2017-09-17] MEDS: [UNRECOGNIZED DRUG - REMARK] PO SCH (08:52)
[2017-09-17] MEDS: COENZYME Q10 100 MG PO SCH (08:52)
[2017-09-17] MEDS: cefTRIAXone VIAL(*) 1,000 MG in NS 0.9% 50 ML* 50 ML IVPB SCH ×2 (10:57→23:09)
[2017-09-17] MEDS: Atorvastatin* 10 MG TAB PO SCH (16:53)
[2017-09-17] MEDS ORDERED: Warfarin TAB(*) 4 MG PO ONE (17:00)
[2017-09-18] MEDS: Magnesium Oxide TAB* 400 MG PO SCH (09:03)
[2017-09-18] MEDS: Spironolactone TAB* 25 MG PO SCH (09:03)
[2017-09-18] MEDS: Hydrochlorothiazide TAB* 25 MG PO SCH (09:03)
[2017-09-18] MEDS: Potassium Chlor TAB* 20 MEQ TAB.ER PO SCH (09:03)
[2017-09-18] MEDS: Cholecalciferol TAB* 1000 UNITS PO SCH (09:03)
[2017-09-18] MEDS: PROPAFENONE HCL 425 MG PO SCH ×2 (09:04→20:08)
[2017-09-18] MEDS: MINERALS AREDS2 PO SCH ×2 (09:04→20:07)
[2017-09-18] MEDS: MULTIVITAMINS PO SCH ×2 (09:04→20:07)
[2017-09-18] MEDS: GLUCOSAMINE PO SCH ×2 (09:05→20:08)
[2017-09-18] MEDS: CHONDROITIN PO SCH ×2 (09:05→20:08)
[2017-09-18] MEDS: METHYLSULFONYLMETHANE PO SCH ×2 (09:05→20:08)
[2017-09-18] MEDS: Lactobacillus Acidophilu (GG)* 1 CAP CAP PO SCH ×2 (09:05→20:07)
[2017-09-18] MEDS: [UNRECOGNIZED DRUG - REMARK] PO SCH (09:05)
[2017-09-18] MEDS: COENZYME Q10 100 MG PO SCH (09:05)
[2017-09-18] MEDS: cefTRIAXone VIAL(*) 1,000 MG in NS 0.9% 50 ML* 50 ML IVPB SCH ×2 (10:51→21:54)
--- NOTE | 2017-09-18 14:43 | PN ---
Progress Note - Progress Note Date of Service: 09/18/17 SOAP: Subjective: CC:infective endocarditis HPI: 81 year old woman with left hydronephrosis from obstructing stone s/p ureteral stent; complicated by E. fecalis bacteremia and aortic valve endocarditis. On amp and ceftriaxone. Feels well, energy improving. No fever , rash, or diarrhea. Objective: [] Vital Signs Temp 36.5 C 09/18/17 08:30 Pulse 63 09/18/17 08:30 Resp 18 09/18/17 08:30 BP 122/70 09/18/17 08:30 Pulse Ox 97 09/18/17 08:30 Intake & Output 09/17/17 09/18/17 09/18/17 18:59 06:59 18:59 Intake Total 900 1020 470 Balance 900 1020 470 Intake: IV Fluids 45 120 ABX - AMPICILLIN 25 100 ABX - CEFTRIAXONE 20 NS (0.9%) 20 IVPB 265 100 ABX - AMPICILLIN 200 100 ABX - CEFTRIAXONE 65 Oral 590 800 470 Other: # Bowel Movements 1 # Voids 3 Gen:awake, no distress HEENT:PERRL, MMM Neuro: Ox3, CN 2-12 intact; baseline decreased hearing BL Neck:supple Heart:RRR no murmur Lungs:CTA BL Abd:+BS NTND soft Skin: no rash MSK: no joint tenderness Laboratory Results - last 24 hr 09/18/17 06:00 INR (Anticoag Therapy) 2.25 H CRP 97 TTE stable vegetation, Assessment: 1. 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 Enterococcus UTI with infected obstructing stone s/p ureteral stent, discussed with Dr Ayala who will continue evaluation for stent removal. 4. elevated CRP, improving Plan: 1. continue amp 2 gm Q4hrs and ceftriaxone 1 gm IV Q12hrs day . Weekly CBC , CMP, CRP; LA at end of antibiotic treatment. 35 minutes floor time >50% face to face in counseling regarding antibiotic plans and follow up monitoring with LA to ensure resolution of infection.
[2017-09-18] MEDS ORDERED: Warfarin TAB(*) 5 MG PO ONE (17:00)
[2017-09-18] MEDS: Atorvastatin* 10 MG TAB PO SCH (17:04)
[2017-09-19 05:27] LABS: Hematocrit 27 % (35-47); Hemoglobin 9.3 g/dl (12.0-16.0); Mean Corpuscular HGB Conc 35 g/dl (31-36); Mean Corpuscular Hemoglobin 31 pg (27-31); Mean Corpuscular Volume 90 fL (80-97); Mean Platelet Volume 7 um3 (7.4-10.4); Red Blood Count 2.97 10^6/ul (4.0-5.4); Red Cell Distribution Width 13 % (10.5-15); White Blood Count 7.2 10^3/ul (3.5-10.8)
[2017-09-19 05:40] LABS: BUN/Creatinine Ratio 15.1 (8-20); C Reactive Protein 14.07 mg/L (< 5.00); Calcium 9.4 mg/dL (8.6-10.3); EGFR African American 33.6 (>60); EGFR Non-African American 26.1 (>60); Potassium 3.8 mmol/L (3.5-5.0)
[2017-09-19] MEDS: COENZYME Q10 100 MG PO SCH (09:08)
[2017-09-19] MEDS: Lactobacillus Acidophilu (GG)* 1 CAP CAP PO SCH ×2 (09:13→21:22)
[2017-09-19] MEDS: Cholecalciferol TAB* 1000 UNITS PO SCH (09:13)
[2017-09-19] MEDS: Potassium Chlor TAB* 20 MEQ TAB.ER PO SCH (09:13)
[2017-09-19] MEDS: Magnesium Oxide TAB* 400 MG PO SCH (09:13)
[2017-09-19] MEDS: Hydrochlorothiazide TAB* 25 MG PO SCH (09:13)
[2017-09-19] MEDS: CHONDROITIN PO SCH ×2 (09:14→21:22)
[2017-09-19] MEDS: PROPAFENONE HCL 425 MG PO SCH ×2 (09:14→21:22)
[2017-09-19] MEDS: GLUCOSAMINE PO SCH ×2 (09:14→21:22)
[2017-09-19] MEDS: Spironolactone TAB* 25 MG PO SCH (09:14)
[2017-09-19] MEDS: MULTIVITAMINS PO SCH ×2 (09:14→21:22)
[2017-09-19] MEDS: METHYLSULFONYLMETHANE PO SCH ×2 (09:14→21:22)
[2017-09-19] MEDS: MINERALS AREDS2 PO SCH ×2 (09:14→21:22)
[2017-09-19] MEDS: [UNRECOGNIZED DRUG - REMARK] PO SCH (09:15)
[2017-09-19] MEDS: cefTRIAXone VIAL(*) 1,000 MG in NS 0.9% 50 ML* 50 ML IVPB SCH ×2 (11:00→23:26)
[2017-09-19] MEDS: Atorvastatin* 10 MG TAB PO SCH (16:42)
[2017-09-19] MEDS ORDERED: Warfarin TAB(*) 4 MG PO ONE (17:00)
[2017-09-19 18:38] LABS: Urine Bacteria Absent (Absent); Urine Bilirubin Negative (Negative); Urine Glucose Negative (Negative); Urine Nitrite Negative (Negative)
[2017-09-20 07:44] LABS: BUN/Creatinine Ratio 14.4 (8-20); Calcium 9.3 mg/dL (8.6-10.3); EGFR African American 34.6 (>60); EGFR Non-African American 26.9 (>60); Potassium 3.7 mmol/L (3.5-5.0)
[2017-09-20] MEDS: Magnesium Oxide TAB* 400 MG PO SCH (09:06)
[2017-09-20] MEDS: Cholecalciferol TAB* 1000 UNITS PO SCH (09:07)
[2017-09-20] MEDS: Lactobacillus Acidophilu (GG)* 1 CAP CAP PO SCH ×2 (09:07→21:35)
[2017-09-20] MEDS: [UNRECOGNIZED DRUG - REMARK] PO SCH (09:07)
[2017-09-20] MEDS: MULTIVITAMINS PO SCH ×2 (09:08→21:29)
[2017-09-20] MEDS: MINERALS AREDS2 PO SCH ×2 (09:08→21:29)
[2017-09-20] MEDS: PROPAFENONE HCL 425 MG PO SCH ×2 (09:08→21:28)
[2017-09-20] MEDS: COENZYME Q10 100 MG PO SCH (09:10)
[2017-09-20] MEDS: METHYLSULFONYLMETHANE PO SCH ×2 (09:10→21:29)
[2017-09-20] MEDS: CHONDROITIN PO SCH ×2 (09:10→21:29)
[2017-09-20] MEDS: GLUCOSAMINE PO SCH ×2 (09:10→21:29)
[2017-09-20] MEDS: cefTRIAXone VIAL(*) 1,000 MG in NS 0.9% 50 ML* 50 ML IVPB SCH ×2 (11:42→23:31)
--- NOTE | 2017-09-20 16:16 | PN ---
Subjective Date of Service: 09/20/17 Interval History: No c/o. Pt is concerned about completing her ureteral stone treatment. Family History: Unchanged from Admission Social History: Unchanged from Admission Past Medical History: Unchanged from Admission Objective Active Medications: Acetaminophen (Tylenol Tab*) 650 mg PO Q4H PRN PRN Reason: FEVER/PAIN Last Admin: 09/13/17 21:23 Dose: 650 mg Al Hydrox/Mg Hydrox/Simethicone (Maalox Plus*) 30 ml PO Q6H PRN PRN Reason: INDIGESTION Atorvastatin Calcium (Lipitor*) 10 mg PO 1700 [facility] Last Admin: 09/19/17 16:42 Dose: 10 mg Cholecalciferol (Vitamin D Tab*) 2,000 units PO DAILY [facility] Last Admin: 09/20/17 09:07 Dose: 2,000 units Coenzyme Q10 (Coenzyme Q10 (Nf)) 1 cap PO DAILY [facility] Last Admin: 09/20/17 09:10 Dose: Not Given Heparin Sodium (Porcine) (Heparin Flush Picc/Ml/Cvc(*)) 1 - 3 ml FLUSH 0600, 1800 [facility] PRN Reason: Protocol Last Admin: 09/20/17 09:09 Dose: 1 ml Ceftriaxone Sodium 1,000 mg/ (Sodium Chloride) 50 mls @ 200 mls/hr IVPB Q12H [facility] Last Admin: 09/20/17 11:42 Dose: 200 mls/hr Ampicillin Sodium 2 gm/ Sodium (Chloride) 100 mls @ 200 mls/hr IVPB Q6H [facility] Last Admin: 09/20/17 12:20 Dose: 200 mls/hr Lactobacillus Rhamnosus (Culturelle*) 1 cap PO BID [facility] Last Admin: 09/20/17 09:07 Dose: 1 cap Magnesium Oxide (Magox 400 Tab*) 800 mg PO DAILY [facility] Last Admin: 09/20/17 09:06 Dose: 800 mg Multivitamins/Minerals (Preservision Areds 2) 1 cap PO BID [facility] Last Admin: 09/20/17 09:08 Dose: 1 cap Pto: Propafenone Hcl ([Rythmol Sr] 425 Mg) 425 mg PO BID [facility] Last Admin: 09/20/17 09:08 Dose: 425 mg Pto: Glucosamine/Chondroitin/Msm Joint Soother 1 dose PO BID [facility] PRN Reason: Protocol Last Admin: 09/20/17 09:10 Dose: 1 dose Pto: Carin [place] (Mini Gel Capsules) 1 dose PO DAILY [facility] PRN Reason: Protocol Last Admin: 09/20/17 09:07 Dose: 1 dose Senna (Senokot Tab*) 1 tab PO BID PRN PRN Reason: CONSTIPATION Warfarin Sodium (Coumadin Tab(*)) 5 mg PO 1700 [facility] Stop: 09/20/17 17:01 Warfarin Sodium (Coumadin Tab(*)) 4 mg PO DAILY@1700 [facility] PRN Reason: Protocol Vital Signs 09/19/17 09/20/17 09/20/17 22:50 08:00 08:09 Temperature 97.8 F Pulse Rate 65 Respiratory 18 16 16 Rate Blood Pressure 144/68 (mmHg) O2 Sat by Pulse Oximetry 09/20/17 15:47 Temperature 97.3 F Pulse Rate 61 Respiratory 16 Rate Blood Pressure 118/61 (mmHg) O2 Sat by Pulse 100 Oximetry Oxygen Devices in Use Now: None Appearance: Alert, in a chair. In good spirits. Looks comfortable. Eyes: No Scleral Icterus Extremities: No Edema, No Clubbing, Cyanosis, - Skin: No Rash or Ulcers, No Nodules or Sclerosis, - Neurological: Alert and Oriented x 3, NL Sensation Result Diagrams: 09/19/17 05:05 09/20/17 06:20 Microbiology and Other Data: Microbiology 09/06/17 17:55 Aerobic Blood Culture - Final Blood Venous No Growth Day 5 Anaerobic Blood Culture - Final No Growth Day 5 Blood Culture - Final 09/06/17 17:19 Aerobic Blood Culture - Final Blood Venous No Growth Day 5 Anaerobic Blood Culture - Final No Growth Day 5 Blood Culture - Final 09/06/17 18:35 Urine Culture - Final Urine No Growth (<1,000 CFU/mL) Assess/Plan/Problems-Billing Assessment: Mrs. Roque is an 81yo F with PMH of HTN, HLD, Afib on AC, nephrolithiasis, admitted with left hydronephrosis secondary to ureteral stone s/p stent, complicated by E. faecalis septicemia and aortic valve endocarditis, now Swing status for 6 weeks of IV antibiotics. - Patient Problems (1) Endocarditis Current Visit: Yes Status: Acute Code(s): I38 - ENDOCARDITIS, VALVE UNSPECIFIED SNOMED Code(s): 72338683 Comment: Continue Ampicillin and Ceftriaxone, last day 10/08/17. - TTE showed unchanged AV vegetation. - LA to be repeated on her last week of antibiotics. (2) Nephrolithiasis Current Visit: No Status: Acute Code(s): N20.0 - CALCULUS OF KIDNEY SNOMED Code(s): 64894434 Comment: s/p cysto and stent placement in L ureter by Dr. Ayala on 08/22/17. Repeat renal US on 08/23/17 shows resolution of hydronephrosis. Lithotripsy and remoal of stent scheduled for 10/02/17. Warfarin to be stopped after dose on 09/25, can bridge with enoxaparin. Dr. Ayala requests that enoxaparin be stopped 48 hrs before the lithotripsy. (3) Atrial fibrillation Current Visit: Yes Status: Acute Code(s): I48.91 - UNSPECIFIED ATRIAL FIBRILLATION SNOMED Code(s): 62217970 Comment: - In NSR. - Continue Propafenone and Warfarin and monitor INR. (4) HTN (hypertension) Current Visit: Yes Status: Acute Code(s): I10 - ESSENTIAL (PRIMARY) HYPERTENSION SNOMED Code(s): 05190249 Comment: - Controlled without BP meds. Status and Disposition: Swing status to complete 6 weeks of antibiotics.
[2017-09-20] MEDS: Warfarin TAB(*) 4 MG PO SCH (16:50)
[2017-09-20] MEDS: Atorvastatin* 10 MG TAB PO SCH (16:51)
[2017-09-20] MEDS ORDERED: Warfarin TAB(*) 5 MG PO ONE (17:00)
[2017-09-21] MEDS: COENZYME Q10 100 MG PO SCH (09:05)
[2017-09-21] MEDS: MULTIVITAMINS PO SCH ×2 (09:12→20:16)
[2017-09-21] MEDS: MINERALS AREDS2 PO SCH ×2 (09:12→20:16)
[2017-09-21] MEDS: PROPAFENONE HCL 425 MG PO SCH ×2 (09:12→20:17)
[2017-09-21] MEDS: Cholecalciferol TAB* 1000 UNITS PO SCH (09:13)
[2017-09-21] MEDS: [UNRECOGNIZED DRUG - REMARK] PO SCH (09:13)
[2017-09-21] MEDS: METHYLSULFONYLMETHANE PO SCH ×2 (09:13→20:17)
[2017-09-21] MEDS: CHONDROITIN PO SCH ×2 (09:13→20:17)
[2017-09-21] MEDS: Magnesium Oxide TAB* 400 MG PO SCH (09:13)
[2017-09-21] MEDS: GLUCOSAMINE PO SCH ×2 (09:13→20:17)
[2017-09-21] MEDS: Lactobacillus Acidophilu (GG)* 1 CAP CAP PO SCH ×2 (09:14→20:15)
--- NOTE | 2017-09-21 10:45 | PN ---
Progress Note - Progress Note Date of Service: 09/21/17 SOAP: Subjective: CC:infective endocarditis HPI: 81 year old woman with left hydronephrosis from obstructing stone s/p ureteral stent; complicated by E. fecalis bacteremia. On amp and ceftriaxone. Elevated Cr, urinating well. No rash or fever, no flank pain. Objective: [] Vital Signs Temp 36.6 C 09/21/17 07:38 Pulse 58 09/21/17 07:38 Resp 20 09/21/17 08:00 BP 120/60 09/21/17 07:38 Pulse Ox 99 09/21/17 07:38 Intake & Output 09/20/17 09/21/17 09/21/17 18:59 06:59 18:59 Intake Total 957 590 Balance 957 590 Intake: IV Fluids 157 150 ABX - AMPICILLIN 105 100 ABX - CEFTRIAXONE 52 50 Oral 800 440 Other: Estimated Void Medium Medium # Bowel Movements 0 # Voids 3 2 Gen:awake, no distress HEENT:PERRL, MMM Neuro: Ox3, CN 2-12 intact; baseline decreased hearing BL Neck:supple Heart:RRR no murmur Lungs:CTA BL Abd:+BS NTND soft Skin: no rash MSK: no joint tenderness Laboratory Results - last 24 hr 09/21/17 06:30 INR (Anticoag Therapy) 2.41 H CRP 90 ->15 Assessment: 1. Enterococcus infective endocarditis, aortic valve; 2. half-way abx 3. Enterococcus UTI with infected obstructing stone s/p ureteral stent, discussed with Dr Ayala who will continue evaluation for stent removal. 4. Acute kidney injury; AIN on differential, Cr slightly decr at last check and CRP dropped significantly; obstruction a consideration Plan: 1. continue amp 2 gm Q6hrs and ceftriaxone 1 gm IV Q12hrs day . BMP pending for today. If still increasing, will change amp to vancomycin and continue ceftriaxone. Renal US today. Otherwise weekly CBC, CMP, CRP; LA at end of antibiotic treatment. Discussed with Dr Medellin
[2017-09-21 11:28] LABS: BUN/Creatinine Ratio 16.2 (8-20); Calcium 9.4 mg/dL (8.6-10.3); EGFR African American 36.3 (>60); EGFR Non-African American 28.2 (>60); Potassium 3.9 mmol/L (3.5-5.0)
[2017-09-21] MEDS: cefTRIAXone VIAL(*) 1,000 MG in NS 0.9% 50 ML* 50 ML IVPB SCH ×2 (12:08→23:28)
--- NOTE | 2017-09-21 12:13 | RAD ---
Indication: Elevated creatinine. Real-time sonography of the kidneys was performed. The right kidney measures 13.9 x 5.4 x 4.9 cm. No hydronephrosis is noted. The left kidney measures 10.5 x 5.6 x 5.5 cm. No hydronephrosis is noted. A calcification is noted in the lower pole of left kidney measuring 3 x 4 mm. There is a left ureteral stent. Evaluation of the urinary bladder demonstrates a right ureteral jet. Left ureteral stent is in place. IMPRESSION: No hydronephrosis of either kidney. There is a left ureteral stent present.
[2017-09-21] MEDS: Warfarin TAB(*) 4 MG PO SCH (18:23)
[2017-09-21] MEDS: Atorvastatin* 10 MG TAB PO SCH (18:24)
[2017-09-22 06:22] LABS: BUN/Creatinine Ratio 15.2 (8-20); Calcium 9.3 mg/dL (8.6-10.3); EGFR African American 35.1 (>60); EGFR Non-African American 27.3 (>60); Potassium 3.8 mmol/L (3.5-5.0)
[2017-09-22] MEDS: PROPAFENONE HCL 425 MG PO SCH ×2 (08:57→21:45)
[2017-09-22] MEDS: MULTIVITAMINS PO SCH ×2 (08:58→21:45)
[2017-09-22] MEDS: CHONDROITIN PO SCH ×2 (08:58→21:44)
[2017-09-22] MEDS: METHYLSULFONYLMETHANE PO SCH ×2 (08:58→21:44)
[2017-09-22] MEDS: GLUCOSAMINE PO SCH ×2 (08:58→21:44)
[2017-09-22] MEDS: MINERALS AREDS2 PO SCH ×2 (08:58→21:45)
[2017-09-22] MEDS: [UNRECOGNIZED DRUG - REMARK] PO SCH (08:59)
[2017-09-22] MEDS: Cholecalciferol TAB* 1000 UNITS PO SCH (08:59)
[2017-09-22] MEDS: COENZYME Q10 100 MG PO SCH (08:59)
[2017-09-22] MEDS: Lactobacillus Acidophilu (GG)* 1 CAP CAP PO SCH ×2 (09:00→21:44)
[2017-09-22] MEDS: Magnesium Oxide TAB* 400 MG PO SCH (09:00)
[2017-09-22] MEDS: cefTRIAXone VIAL(*) 1,000 MG in NS 0.9% 50 ML* 50 ML IVPB SCH ×2 (11:24→23:54)
[2017-09-22] MEDS: Atorvastatin* 10 MG TAB PO SCH (17:52)
[2017-09-22] MEDS: Warfarin TAB(*) 4 MG PO SCH (17:52)
[2017-09-23 06:32] LABS: Albumin 3.1 g/dL (3.2-5.2); BUN/Creatinine Ratio 17.8 (8-20); Calcium 9.1 mg/dL (8.6-10.3); EGFR African American 38.8 (>60); EGFR Non-African American 30.2 (>60); Globulin 2.7 g/dL (2-4); Potassium 3.8 mmol/L (3.5-5.0); Total Bilirubin 0.2 mg/dL (0.2-1.0); Total Protein 5.8 g/dL (6.4-8.9)
[2017-09-23] MEDS ORDERED: Warfarin TAB(*) 4 MG PO SCH (08:22)
[2017-09-23] MEDS: Magnesium Oxide TAB* 400 MG PO SCH (10:00)
[2017-09-23] MEDS: Lactobacillus Acidophilu (GG)* 1 CAP CAP PO SCH ×2 (10:00→21:31)
[2017-09-23] MEDS: Cholecalciferol TAB* 1000 UNITS PO SCH (10:01)
[2017-09-23] MEDS: cefTRIAXone VIAL(*) 1,000 MG in NS 0.9% 50 ML* 50 ML IVPB SCH ×2 (10:01→23:37)
[2017-09-23] MEDS: MINERALS AREDS2 PO SCH ×2 (10:02→21:31)
[2017-09-23] MEDS: METHYLSULFONYLMETHANE PO SCH ×2 (10:02→21:31)
[2017-09-23] MEDS: [UNRECOGNIZED DRUG - REMARK] PO SCH (10:02)
[2017-09-23] MEDS: CHONDROITIN PO SCH ×2 (10:02→21:31)
[2017-09-23] MEDS: PROPAFENONE HCL 425 MG PO SCH ×2 (10:02→21:31)
[2017-09-23] MEDS: GLUCOSAMINE PO SCH ×2 (10:02→21:31)
[2017-09-23] MEDS: MULTIVITAMINS PO SCH ×2 (10:02→21:31)
[2017-09-23] MEDS: COENZYME Q10 100 MG PO SCH (10:04)
[2017-09-23] MEDS: Atorvastatin* 10 MG TAB PO SCH (17:31)
[2017-09-23] MEDS: Warfarin TAB(*) 2 MG PO SCH (17:31)
[2017-09-23] MEDS: Warfarin TAB(*) 2.5 MG PO SCH (17:31)
[2017-09-24] MEDS: PROPAFENONE HCL 425 MG PO SCH ×2 (09:42→21:36)
[2017-09-24] MEDS: CHONDROITIN PO SCH ×2 (09:43→21:36)
[2017-09-24] MEDS: METHYLSULFONYLMETHANE PO SCH ×2 (09:43→21:36)
[2017-09-24] MEDS: MULTIVITAMINS PO SCH ×2 (09:43→21:36)
[2017-09-24] MEDS: MINERALS AREDS2 PO SCH ×2 (09:43→21:36)
[2017-09-24] MEDS: [UNRECOGNIZED DRUG - REMARK] PO SCH (09:43)
[2017-09-24] MEDS: GLUCOSAMINE PO SCH ×2 (09:43→21:36)
[2017-09-24] MEDS: Lactobacillus Acidophilu (GG)* 1 CAP CAP PO SCH ×2 (09:44→21:36)
[2017-09-24] MEDS: Cholecalciferol TAB* 1000 UNITS PO SCH (09:44)
[2017-09-24] MEDS: Magnesium Oxide TAB* 400 MG PO SCH (09:44)
[2017-09-24] MEDS: COENZYME Q10 100 MG PO SCH (09:45)
[2017-09-24] MEDS: cefTRIAXone VIAL(*) 1,000 MG in NS 0.9% 50 ML* 50 ML IVPB SCH ×2 (11:04→23:44)
[2017-09-24] MEDS: Atorvastatin* 10 MG TAB PO SCH (17:34)
[2017-09-24] MEDS: Warfarin TAB(*) 2.5 MG PO SCH (17:34)
[2017-09-24] MEDS: Warfarin TAB(*) 2 MG PO SCH (17:34)
[2017-09-24] MEDS: Acetaminophen TAB* 325 MG PO PRN (23:49)
[2017-09-25 06:45] LABS: BUN/Creatinine Ratio 16.3 (8-20); C Reactive Protein 7.29 mg/L (< 5.00); EGFR African American 36.5 (>60); EGFR Non-African American 28.4 (>60); Potassium 3.8 mmol/L (3.5-5.0)
[2017-09-25] MEDS: Cholecalciferol TAB* 1000 UNITS PO SCH (08:58)
[2017-09-25] MEDS: Lactobacillus Acidophilu (GG)* 1 CAP CAP PO SCH ×2 (09:00→21:49)
[2017-09-25] MEDS: Magnesium Oxide TAB* 400 MG PO SCH (09:00)
[2017-09-25] MEDS: MULTIVITAMINS PO SCH ×2 (09:01→21:50)
[2017-09-25] MEDS: MINERALS AREDS2 PO SCH ×2 (09:01→21:50)
[2017-09-25] MEDS: METHYLSULFONYLMETHANE PO SCH ×2 (09:02→21:51)
[2017-09-25] MEDS: GLUCOSAMINE PO SCH ×2 (09:02→21:51)
[2017-09-25] MEDS: [UNRECOGNIZED DRUG - REMARK] PO SCH (09:02)
[2017-09-25] MEDS: CHONDROITIN PO SCH ×2 (09:02→21:51)
[2017-09-25] MEDS: PROPAFENONE HCL 425 MG PO SCH ×2 (09:03→21:50)
[2017-09-25] MEDS: COENZYME Q10 100 MG PO SCH (09:03)
--- NOTE | 2017-09-25 10:49 | PN ---
Subjective Date of Service: 09/25/17 Interval History: Pt c/l left sciatica pain , better after Tylenol. Family History: Unchanged from Admission Social History: Unchanged from Admission Past Medical History: Unchanged from Admission Objective Active Medications: Acetaminophen (Tylenol Tab*) 650 mg PO Q4H PRN PRN Reason: FEVER/PAIN Last Admin: 09/24/17 23:49 Dose: 650 mg Al Hydrox/Mg Hydrox/Simethicone (Maalox Plus*) 30 ml PO Q6H PRN PRN Reason: INDIGESTION Atorvastatin Calcium (Lipitor*) 10 mg PO 1700 [facility] Last Admin: 09/24/17 17:34 Dose: 10 mg Cholecalciferol (Vitamin D Tab*) 2,000 units PO DAILY [facility] Last Admin: 09/25/17 08:58 Dose: 2,000 units Coenzyme Q10 (Coenzyme Q10 (Nf)) 1 cap PO DAILY [facility] Last Admin: 09/25/17 09:03 Dose: Not Given Heparin Sodium (Porcine) (Heparin Flush Picc/Ml/Cvc(*)) 1 - 3 ml FLUSH 0600, 1800 [facility] PRN Reason: Protocol Last Admin: 09/25/17 06:39 Dose: 1 ml Heparin Sodium (Porcine) (Heparin Vial(*)) 5,000 units SUBCUT Q8H [facility] Ceftriaxone Sodium 1,000 mg/ (Sodium Chloride) 50 mls @ 200 mls/hr IVPB Q12H [facility] Last Admin: 09/24/17 23:44 Dose: 200 mls/hr Ampicillin Sodium 2 gm/ Sodium (Chloride) 100 mls @ 200 mls/hr IVPB Q6H [facility] Last Admin: 09/25/17 06:07 Dose: 200 mls/hr Lactobacillus Rhamnosus (Culturelle*) 1 cap PO BID [facility] Last Admin: 09/25/17 09:00 Dose: 1 cap Magnesium Oxide (Magox 400 Tab*) 800 mg PO DAILY [facility] Last Admin: 09/25/17 09:00 Dose: 800 mg Multivitamins/Minerals (Preservision Areds 2) 1 cap PO BID [facility] Last Admin: 09/25/17 09:01 Dose: 1 cap Pto: Propafenone Hcl ([Rythmol Sr] 425 Mg) 425 mg PO BID [facility] Last Admin: 09/25/17 09:03 Dose: 425 mg Pto: Glucosamine/Chondroitin/Msm Joint Soother 1 dose PO BID [facility] PRN Reason: Protocol Last Admin: 09/25/17 09:02 Dose: 1 dose Pto: Carin [place] (Mini Gel Capsules) 1 dose PO DAILY [facility] PRN Reason: Protocol Last Admin: 09/25/17 09:02 Dose: 1 dose Senna (Senokot Tab*) 1 tab PO BID [facility]N PRN Reason: CONSTIPATION Warfarin Sodium (Coumadin Tab(*)) 2.5 mg PO DAILY@1700 [facility] PRN Reason: Protocol Stop: 09/25/17 23:30 Last Admin: 09/24/17 17:34 Dose: 2.5 mg Warfarin Sodium (Coumadin Tab(*)) 2 mg PO 1700 [facility] Stop: 09/25/17 23:30 Last Admin: 09/24/17 17:34 Dose: 2 mg Vital Signs 09/24/17 20:00 Respiratory 20 Rate Oxygen Devices in Use Now: None Appearance: 81 yo F in nAD, aAOx3 Eyes: No Scleral Icterus, PERRLA Ears/Nose/Mouth/Throat: NL Teeth, Lips, Gums, Mucous Membranes Moist Neck: NL Appearance and Movements; NL JVP, Trachea Midline Respiratory: Symmetrical Chest Expansion and Respiratory Effort, Clear to Auscultation Cardiovascular: NL Sounds; No Murmurs; No JVD, RRR Abdominal: NL Sounds; No Tenderness; No Distention, No Hepatosplenomegaly, - - no CVA tenderness b/l Lymphatic: No Cervical Adenopathy Extremities: No Edema, No Clubbing, Cyanosis Skin: No Rash or Ulcers, No Nodules or Sclerosis Neurological: Alert and Oriented x 3, NL Muscle Strength and Tone Result Diagrams: 09/19/17 05:05 09/25/17 06:10 Microbiology and Other Data: Microbiology 09/06/17 17:55 Aerobic Blood Culture - Final Blood Venous No Growth Day 5 Anaerobic Blood Culture - Final No Growth Day 5 Blood Culture - Final 09/06/17 17:19 Aerobic Blood Culture - Final Blood Venous No Growth Day 5 Anaerobic Blood Culture - Final No Growth Day 5 Blood Culture - Final 09/06/17 18:35 Urine Culture - Final Urine No Growth (<1,000 CFU/mL) Assess/Plan/Problems-Billing Assessment: Mrs. Roque is an 81yo F with PMH of HTN, HLD, Afib on AC, nephrolithiasis, admitted with left hydronephrosis secondary to ureteral stone s/p stent, complicated by E. faecalis septicemia and aortic valve endocarditis, now Swing status for 6 weeks of IV antibiotics. - Patient Problems (1) Endocarditis Comment: Continue Ampicillin and Ceftriaxone, last day 10/08/17. - TTE showed unchanged AV vegetation. - LA to be repeated on her last week of antibiotics. (2) Nephrolithiasis Comment: s/p cysto and stent placement in L ureter by Dr. Ayala on 08/22/17. Repeat renal US on 08/23/17 shows resolution of hydronephrosis. Lithotripsy and remoal of stent scheduled for 10/02/17. Warfarin to be stopped after dose on 09/25, can bridge with enoxaparin. Dr. Ayala requests that all anticoagulants be stopped 48 hrs before the lithotripsy. (3) Atrial fibrillation Comment: - In NSR. - Continue Propafenone -Coumadin last day today prior to cystoscopy on 10/02/17 -duet o increase in creatinine pt is not a good candidate for Lovenox bridging. D/w Pt possible heparin gtt bridging which she is not interested in . Pt stated that in the past her coumadin was just stopped and "everything was OK". Will not bridge . Will start heparin sc for DVT prophylaxis (4) Acute renal failure Comment: recurred , suspect due to antibiotic tx. Repeat renal US unremarkable. Creat stable cont to monitor repeat BMP on 09/28/17 Will d/w ID (5) HTN (hypertension) Comment: - Controlled without BP meds. (6) DVT prophylaxis Comment: HSQ Status and Disposition: Swing status to complete 6 weeks of antibiotics.
[2017-09-25] MEDS: cefTRIAXone VIAL(*) 1,000 MG in NS 0.9% 50 ML* 50 ML IVPB SCH ×2 (11:21→23:14)
[2017-09-25] MEDS: Atorvastatin* 10 MG TAB PO SCH (17:18)
[2017-09-25] MEDS: Warfarin TAB(*) 2.5 MG PO SCH (17:20)
[2017-09-25] MEDS: Warfarin TAB(*) 2 MG PO SCH (17:20)
[2017-09-26] MEDS: Cholecalciferol TAB* 1000 UNITS PO SCH (08:50)
[2017-09-26] MEDS: Magnesium Oxide TAB* 400 MG PO SCH (08:50)
[2017-09-26] MEDS: Lactobacillus Acidophilu (GG)* 1 CAP CAP PO SCH ×2 (08:50→19:59)
[2017-09-26] MEDS: PROPAFENONE HCL 425 MG PO SCH ×2 (08:51→19:50)
[2017-09-26] MEDS: METHYLSULFONYLMETHANE PO SCH ×2 (08:51→19:50)
[2017-09-26] MEDS: MINERALS AREDS2 PO SCH ×2 (08:51→19:51)
[2017-09-26] MEDS: MULTIVITAMINS PO SCH ×2 (08:51→19:51)
[2017-09-26] MEDS: GLUCOSAMINE PO SCH ×2 (08:51→19:50)
[2017-09-26] MEDS: [UNRECOGNIZED DRUG - REMARK] PO SCH (08:51)
[2017-09-26] MEDS: CHONDROITIN PO SCH ×2 (08:51→19:50)
[2017-09-26] MEDS: Heparin VIAL(*) 5000 UNITS/ML VIAL (FIVE THOUSAND) SUBCUT SCH ×2 (08:52→16:27)
[2017-09-26] MEDS: COENZYME Q10 100 MG PO SCH (12:03)
[2017-09-26] MEDS: cefTRIAXone VIAL(*) 1,000 MG in NS 0.9% 50 ML* 50 ML IVPB SCH ×2 (12:05→23:23)
[2017-09-26] MEDS: Atorvastatin* 10 MG TAB PO SCH (16:26)
[2017-09-27] MEDS: Heparin VIAL(*) 5000 UNITS/ML VIAL (FIVE THOUSAND) SUBCUT SCH ×3 (02:07→17:11)
[2017-09-27 07:20] LABS: BUN/Creatinine Ratio 16.2 (8-20); Calcium 9.1 mg/dL (8.6-10.3); EGFR African American 36.3 (>60); EGFR Non-African American 28.2 (>60)
[2017-09-27] MEDS: COENZYME Q10 100 MG PO SCH (08:27)
[2017-09-27] MEDS: Magnesium Oxide TAB* 400 MG PO SCH (08:30)
[2017-09-27] MEDS: CHONDROITIN PO SCH ×2 (08:31→21:02)
[2017-09-27] MEDS: Cholecalciferol TAB* 1000 UNITS PO SCH (08:31)
[2017-09-27] MEDS: GLUCOSAMINE PO SCH ×2 (08:31→21:02)
[2017-09-27] MEDS: Lactobacillus Acidophilu (GG)* 1 CAP CAP PO SCH ×2 (08:31→21:11)
[2017-09-27] MEDS: METHYLSULFONYLMETHANE PO SCH ×2 (08:31→21:02)
[2017-09-27] MEDS: MINERALS AREDS2 PO SCH ×2 (08:31→21:02)
[2017-09-27] MEDS: MULTIVITAMINS PO SCH ×2 (08:31→21:02)
[2017-09-27] MEDS: PROPAFENONE HCL 425 MG PO SCH ×2 (08:31→21:02)
[2017-09-27] MEDS: [UNRECOGNIZED DRUG - REMARK] PO SCH (08:32)
[2017-09-27] MEDS: cefTRIAXone VIAL(*) 1,000 MG in NS 0.9% 50 ML* 50 ML IVPB SCH (10:58)
[2017-09-27] MEDS: Atorvastatin* 10 MG TAB PO SCH (17:11)
[2017-09-28] MEDS: cefTRIAXone VIAL(*) 1,000 MG in NS 0.9% 50 ML* 50 ML IVPB SCH ×3 (00:08→23:35)
[2017-09-28] MEDS: Heparin VIAL(*) 5000 UNITS/ML VIAL (FIVE THOUSAND) SUBCUT SCH ×3 (00:14→16:44)
[2017-09-28] MEDS: COENZYME Q10 100 MG PO SCH (08:40)
[2017-09-28] MEDS: Magnesium Oxide TAB* 400 MG PO SCH (08:42)
[2017-09-28] MEDS: MINERALS AREDS2 PO SCH ×2 (08:43→22:04)
[2017-09-28] MEDS: Cholecalciferol TAB* 1000 UNITS PO SCH (08:43)
[2017-09-28] MEDS: Lactobacillus Acidophilu (GG)* 1 CAP CAP PO SCH ×2 (08:43→22:04)
[2017-09-28] MEDS: CHONDROITIN PO SCH ×2 (08:43→22:04)
[2017-09-28] MEDS: PROPAFENONE HCL 425 MG PO SCH ×2 (08:43→22:05)
[2017-09-28] MEDS: GLUCOSAMINE PO SCH ×2 (08:43→22:04)
[2017-09-28] MEDS: METHYLSULFONYLMETHANE PO SCH ×2 (08:43→22:04)
[2017-09-28] MEDS: [UNRECOGNIZED DRUG - REMARK] PO SCH (08:43)
[2017-09-28] MEDS: MULTIVITAMINS PO SCH ×2 (08:43→22:04)
[2017-09-28] MEDS: Atorvastatin* 10 MG TAB PO SCH (16:46)
[2017-09-29] MEDS: Heparin VIAL(*) 5000 UNITS/ML VIAL (FIVE THOUSAND) SUBCUT SCH ×4 (01:37→21:25)
[2017-09-29] MEDS: Lactobacillus Acidophilu (GG)* 1 CAP CAP PO SCH ×2 (08:19→21:23)
[2017-09-29] MEDS: Magnesium Oxide TAB* 400 MG PO SCH (08:19)
[2017-09-29] MEDS: Cholecalciferol TAB* 1000 UNITS PO SCH (08:19)
[2017-09-29] MEDS: GLUCOSAMINE PO SCH ×2 (08:20→21:25)
[2017-09-29] MEDS: PROPAFENONE HCL 425 MG PO SCH ×2 (08:20→21:24)
[2017-09-29] MEDS: CHONDROITIN PO SCH ×2 (08:20→21:25)
[2017-09-29] MEDS: MINERALS AREDS2 PO SCH ×2 (08:20→21:25)
[2017-09-29] MEDS: METHYLSULFONYLMETHANE PO SCH ×2 (08:20→21:25)
[2017-09-29] MEDS: MULTIVITAMINS PO SCH ×2 (08:20→21:25)
[2017-09-29] MEDS: [UNRECOGNIZED DRUG - REMARK] PO SCH (08:21)
[2017-09-29] MEDS: COENZYME Q10 100 MG PO SCH (08:41)
[2017-09-29] MEDS: cefTRIAXone VIAL(*) 1,000 MG in NS 0.9% 50 ML* 50 ML IVPB SCH (11:04)
[2017-09-29] MEDS: Atorvastatin* 10 MG TAB PO SCH (17:39)
[2017-09-30] MEDS: cefTRIAXone VIAL(*) 1,000 MG in NS 0.9% 50 ML* 50 ML IVPB SCH ×3 (00:06→23:16)
[2017-09-30] MEDS: Heparin VIAL(*) 5000 UNITS/ML VIAL (FIVE THOUSAND) SUBCUT SCH ×3 (06:30→23:17)
[2017-09-30] MEDS: MULTIVITAMINS PO SCH ×2 (07:33→20:14)
[2017-09-30] MEDS: MINERALS AREDS2 PO SCH ×2 (07:33→20:14)
[2017-09-30] MEDS: Cholecalciferol TAB* 1000 UNITS PO SCH (07:33)
[2017-09-30] MEDS: PROPAFENONE HCL 425 MG PO SCH ×2 (07:33→20:13)
[2017-09-30] MEDS: GLUCOSAMINE PO SCH ×2 (07:34→20:13)
[2017-09-30] MEDS: Magnesium Oxide TAB* 400 MG PO SCH (07:34)
[2017-09-30] MEDS: COENZYME Q10 100 MG PO SCH (07:34)
[2017-09-30] MEDS: METHYLSULFONYLMETHANE PO SCH ×2 (07:34→20:13)
[2017-09-30] MEDS: CHONDROITIN PO SCH ×2 (07:34→20:13)
[2017-09-30] MEDS: Lactobacillus Acidophilu (GG)* 1 CAP CAP PO SCH ×2 (07:34→20:12)
[2017-09-30] MEDS: [UNRECOGNIZED DRUG - REMARK] PO SCH (07:37)
[2017-09-30] MEDS: Atorvastatin* 10 MG TAB PO SCH (16:44)
[2017-10-01 05:57] LABS: Hematocrit 27 % (35-47); Hemoglobin 9.5 g/dl (12.0-16.0); Mean Corpuscular HGB Conc 35 g/dl (31-36); Mean Corpuscular Hemoglobin 31 pg (27-31); Mean Corpuscular Volume 90 fL (80-97); Mean Platelet Volume 8 um3 (7.4-10.4); Red Blood Count 3.02 10^6/ul (4.0-5.4); Red Cell Distribution Width 14 % (10.5-15); White Blood Count 5.2 10^3/ul (3.5-10.8)
[2017-10-01 06:04] LABS: BUN/Creatinine Ratio 15.3 (8-20); Calcium 9.4 mg/dL (8.6-10.3); EGFR African American 42.8 (>60); EGFR Non-African American 33.2 (>60); Potassium 3.6 mmol/L (3.5-5.0)
[2017-10-01] MEDS: GLUCOSAMINE PO SCH ×2 (07:57→20:32)
[2017-10-01] MEDS: CHONDROITIN PO SCH ×2 (07:57→20:32)
[2017-10-01] MEDS: METHYLSULFONYLMETHANE PO SCH ×2 (07:57→20:32)
[2017-10-01] MEDS: Cholecalciferol TAB* 1000 UNITS PO SCH (07:58)
[2017-10-01] MEDS: Magnesium Oxide TAB* 400 MG PO SCH (07:58)
[2017-10-01] MEDS: MINERALS AREDS2 PO SCH ×2 (07:59→20:32)
[2017-10-01] MEDS: Lactobacillus Acidophilu (GG)* 1 CAP CAP PO SCH ×2 (07:59→20:31)
[2017-10-01] MEDS: PROPAFENONE HCL 425 MG PO SCH ×2 (07:59→20:32)
[2017-10-01] MEDS: MULTIVITAMINS PO SCH ×2 (07:59→20:32)
[2017-10-01] MEDS: COENZYME Q10 100 MG PO SCH (08:00)
[2017-10-01] MEDS: [UNRECOGNIZED DRUG - REMARK] PO SCH (08:00)
[2017-10-01] MEDS: cefTRIAXone VIAL(*) 1,000 MG in NS 0.9% 50 ML* 50 ML IVPB SCH ×2 (10:46→22:37)
--- NOTE | 2017-10-01 12:47 | RAD ---
Indication: Surgery, stent removal. Single view of the abdomen demonstrates left ureteral stent in place. Calcification overlying the lower pole of the left kidney as well as in the left pelvis is noted. IMPRESSION: Calcification lower pole left kidney. Likely phlebolith in the left pelvis.
[2017-10-01] MEDS: Atorvastatin* 10 MG TAB PO SCH (17:37)
--- NOTE | 2017-10-01 17:43 | PN ---
Subjective Date of Service: 10/01/17 Interval History: No c/o. Family History: Unchanged from Admission Social History: Unchanged from Admission Past Medical History: Unchanged from Admission Objective Active Medications: Acetaminophen (Tylenol Tab*) 650 mg PO Q4H PRN PRN Reason: FEVER/PAIN Last Admin: 09/24/17 23:49 Dose: 650 mg Al Hydrox/Mg Hydrox/Simethicone (Maalox Plus*) 30 ml PO Q6H PRN PRN Reason: INDIGESTION Atorvastatin Calcium (Lipitor*) 10 mg PO 1700 [facility] Last Admin: 10/01/17 17:37 Dose: 10 mg Cholecalciferol (Vitamin D Tab*) 2,000 units PO DAILY [facility] Last Admin: 10/01/17 07:58 Dose: 2,000 units Coenzyme Q10 (Coenzyme Q10 (Nf)) 1 cap PO DAILY [facility] Last Admin: 10/01/17 08:00 Dose: Not Given Heparin Sodium (Porcine) (Heparin Flush Picc/Ml/Cvc(*)) 1 - 3 ml FLUSH 0600, 1800 [facility] PRN Reason: Protocol Last Admin: 10/01/17 08:03 Dose: 1 ml Ceftriaxone Sodium 1,000 mg/ (Sodium Chloride) 50 mls @ 200 mls/hr IVPB Q12H [facility] Last Admin: 10/01/17 10:46 Dose: 200 mls/hr Ampicillin Sodium 2 gm/ Sodium (Chloride) 100 mls @ 200 mls/hr IVPB 0000,0600, 1200,1800 [facility] Last Admin: 10/01/17 17:37 Dose: 200 mls/hr Lactated Ringer's (Lactated Ringers 1000 Ml Bag*) 1,000 mls @ 150 mls/hr IV PER RATE [facility] Lactobacillus Rhamnosus (Culturelle*) 1 cap PO BID [facility] Last Admin: 10/01/17 07:59 Dose: 1 cap Magnesium Oxide (Magox 400 Tab*) 800 mg PO DAILY [facility] Last Admin: 10/01/17 07:58 Dose: 800 mg Multivitamins/Minerals (Preservision Areds 2) 1 cap PO BID [facility] Last Admin: 10/01/17 07:59 Dose: 1 cap Pto: Propafenone Hcl ([Rythmol Sr] 425 Mg) 425 mg PO BID [facility] Last Admin: 10/01/17 07:59 Dose: 425 mg Pto: Glucosamine/Chondroitin/Msm Joint Soother 1 dose PO BID [facility] PRN Reason: Protocol Last Admin: 10/01/17 07:57 Dose: 1 dose Pto: Carin [place] (Mini Gel Capsules) 1 dose PO DAILY [facility] PRN Reason: Protocol Last Admin: 10/01/17 08:00 Dose: 1 dose Senna (Senokot Tab*) 1 tab PO BID [facility] PRN Reason: CONSTIPATION Vital Signs 09/30/17 10/01/17 10/01/17 20:00 07:25 08:23 Temperature 97.5 F Pulse Rate 69 Respiratory 18 18 Rate Blood Pressure 125/72 124/61 (mmHg) O2 Sat by Pulse 98 Oximetry 10/01/17 09:31 Temperature Pulse Rate Respiratory 16 Rate Blood Pressure (mmHg) O2 Sat by Pulse Oximetry Oxygen Devices in Use Now: None Appearance: Alert, sitting on the edge o f her bed. In good spirits. Looks comfortable. Eyes: No Scleral Icterus Respiratory: Symmetrical Chest Expansion and Respiratory Effort, Clear to Auscultation, Clear to Percussion Cardiovascular: NL Sounds; No Murmurs; No JVD, RRR, No Edema, - Abdominal: - - No CVA tenderness Extremities: No Edema, No Clubbing, Cyanosis, - Skin: No Rash or Ulcers, No Nodules or Sclerosis, - Neurological: Alert and Oriented x 3, NL Sensation Result Diagrams: 10/01/17 05:30 10/01/17 05:30 Microbiology and Other Data: Microbiology 09/06/17 17:55 Aerobic Blood Culture - Final Blood Venous No Growth Day 5 Anaerobic Blood Culture - Final No Growth Day 5 Blood Culture - Final 09/06/17 17:19 Aerobic Blood Culture - Final Blood Venous No Growth Day 5 Anaerobic Blood Culture - Final No Growth Day 5 Blood Culture - Final 09/06/17 18:35 Urine Culture - Final Urine No Growth (<1,000 CFU/mL) Assess/Plan/Problems-Billing Assessment: Mrs. Roque is an 81yo F with PMH of HTN, HLD, Afib on AC, nephrolithiasis, admitted with left hydronephrosis secondary to ureteral stone s/p stent, complicated by E. faecalis septicemia and aortic valve endocarditis, now Swing status for 6 weeks of IV antibiotics. - Patient Problems (1) Endocarditis Current Visit: Yes Status: Acute Code(s): I38 - ENDOCARDITIS, VALVE UNSPECIFIED SNOMED Code(s): 49554554 Comment: Continue Ampicillin and Ceftriaxone, last day 10/08/17. - TTE showed unchanged AV vegetation. - LA to be repeated on her last week of antibiotics, ordered for 10/04. (2) Nephrolithiasis Current Visit: No Status: Acute Code(s): N20.0 - CALCULUS OF KIDNEY SNOMED Code(s): 28262024 Comment: s/p cysto and stent placement in L ureter by Dr. Ayala on 08/22/17. Repeat renal US on 08/23/17 shows resolution of hydronephrosis. Lithotripsy and remoal of stent scheduled for 10/02/17. Warfarin to be stopped after dose on 09/25, can bridge with enoxaparin. Dr. Ayala requests that all anticoagulants be stopped 48 hrs before the lithotripsy, and not be restarted for 7-10 days afterwards. (3) Atrial fibrillation Current Visit: Yes Status: Acute Code(s): I48.91 - UNSPECIFIED ATRIAL FIBRILLATION SNOMED Code(s): 85627596 Comment: - In NSR. - Continue Propafenone -Coumadin last day today prior to cystoscopy on 10/02/17 -duet o increase in creatinine pt is not a good candidate for Lovenox bridging. D/w Pt possible heparin gtt bridging which she is not interested in . Pt stated that in the past her coumadin was just stopped and "everything was OK". Will not bridge . Will start heparin sc for DVT prophylaxis (4) HTN (hypertension) Current Visit: Yes Status: Acute Code(s): I10 - ESSENTIAL (PRIMARY) HYPERTENSION SNOMED Code(s): 89269195 Comment: - Controlled without BP meds. (5) DVT prophylaxis Current Visit: Yes Status: Acute Code(s): YAM9696 - SNOMED Code(s): 555650617 Comment: Discussed with Dr. Ayala 10/01. NO heparin except PICC line flush. Pt advised to take frequent walks so that she never sits for fmor than 2 hrs at a time. Status and Disposition: Swing status to complete 6 weeks of antibiotics.
[2017-10-02] MEDS: PROPAFENONE HCL 425 MG PO SCH ×2 (05:34→20:57)
[2017-10-02] MEDS: MULTIVITAMINS PO SCH ×2 (14:32→20:57)
[2017-10-02] MEDS: METHYLSULFONYLMETHANE PO SCH ×2 (14:32→20:57)
[2017-10-02] MEDS: Cholecalciferol TAB* 1000 UNITS PO SCH ×2 (14:32→16:50)
[2017-10-02] MEDS: [UNRECOGNIZED DRUG - REMARK] PO SCH (14:32)
[2017-10-02] MEDS: CHONDROITIN PO SCH ×2 (14:32→20:57)
[2017-10-02] MEDS: GLUCOSAMINE PO SCH ×2 (14:32→20:57)
[2017-10-02] MEDS: cefTRIAXone VIAL(*) 1,000 MG in NS 0.9% 50 ML* 50 ML IVPB SCH (14:32)
[2017-10-02] MEDS: MINERALS AREDS2 PO SCH ×2 (14:32→20:57)
[2017-10-02] MEDS: Lactobacillus Acidophilu (GG)* 1 CAP CAP PO SCH ×3 (14:33→20:57)
[2017-10-02] MEDS: Magnesium Oxide TAB* 400 MG PO SCH ×2 (14:33→16:49)
[2017-10-02] MEDS: COENZYME Q10 100 MG PO SCH (14:37)
[2017-10-02] MEDS: Atorvastatin* 10 MG TAB PO SCH (16:57)
[2017-10-03] MEDS: cefTRIAXone VIAL(*) 1,000 MG in NS 0.9% 50 ML* 50 ML IVPB SCH ×2 (02:00→13:57)
[2017-10-03] MEDS ORDERED: Metoprolol Succinate XL TAB* 25 MG PO ONE (02:34)
[2017-10-03] MEDS: Magnesium Oxide TAB* 400 MG PO SCH (09:16)
[2017-10-03] MEDS: Lactobacillus Acidophilu (GG)* 1 CAP CAP PO SCH ×2 (09:16→21:35)
[2017-10-03] MEDS: MINERALS AREDS2 PO SCH ×2 (09:17→21:33)
[2017-10-03] MEDS: PROPAFENONE HCL 425 MG PO SCH ×2 (09:17→21:33)
[2017-10-03] MEDS: Cholecalciferol TAB* 1000 UNITS PO SCH (09:17)
[2017-10-03] MEDS: MULTIVITAMINS PO SCH ×2 (09:17→21:33)
[2017-10-03] MEDS: [UNRECOGNIZED DRUG - REMARK] PO SCH (09:18)
[2017-10-03] MEDS: METHYLSULFONYLMETHANE PO SCH ×2 (09:18→21:32)
[2017-10-03] MEDS: GLUCOSAMINE PO SCH ×2 (09:18→21:32)
[2017-10-03] MEDS: CHONDROITIN PO SCH ×2 (09:18→21:32)
[2017-10-03] MEDS: COENZYME Q10 100 MG PO SCH (09:20)
[2017-10-03] MEDS: Atorvastatin* 10 MG TAB PO SCH (18:20)
[2017-10-04] MEDS: cefTRIAXone VIAL(*) 1,000 MG in NS 0.9% 50 ML* 50 ML IVPB SCH ×2 (02:02→15:43)
[2017-10-04 07:14] LABS: BUN/Creatinine Ratio 16.2 (8-20); C Reactive Protein 2.62 mg/L (< 5.00); Calcium 9.3 mg/dL (8.6-10.3); EGFR African American 37.8 (>60); EGFR Non-African American 29.4 (>60); Potassium 3.7 mmol/L (3.5-5.0)
[2017-10-04] MEDS: PROPAFENONE HCL 425 MG PO SCH ×2 (09:04→20:59)
[2017-10-04] MEDS ORDERED: fentaNYL* 50 MCG/ML 2 ML VIAL (100 MCG VIAL) ONE (11:27)
[2017-10-04] MEDS ORDERED: Lidocaine 2% VISCOUS* 15 ML UDC ONE (11:28)
[2017-10-04] MEDS ORDERED: Flumazenil* 0.1 MG/ML 5 ML MDV ONE (11:28)
[2017-10-04] MEDS ORDERED: Naloxone* 0.4 MG/ML 1 ML VIAL ONE (11:28)
[2017-10-04] MEDS ORDERED: Midazolam* 1 MG/ML 10 ML VIAL (10 MG) ONE (11:28)
--- NOTE | 2017-10-04 14:28 | TEE ---
Patient: LORAINE WHITNEY [facility] Rec#: [id number] : 1935 Date: 10/04/2017 Age: 81y Height: 160 cm / 63.0 in Weight: 82 kg / 180.7 lbs Sex: F BSA: 1.85 Room#: 412 Admit Date#: 08/23/2017 Type: Inpatient Referring: Nikko Medellin MD Performing: Bettie Lisa MD Reading: Bettie Lisa MD Attending Urologist: Morena Bowers RD,RDMS Nurse: Lynnette Yoder Transesophageal Echocardiogram Indication: Endocarditis BP: 128/57 HR: 79 Rhythm: NSR Findings History: AOV endocarditis, bacteremia, Afib, HTN, HLD Technical Comments: The study quality is good. Left Ventricle: The left ventricular chamber size is normal. Global left ventricular wall motion and contractility are within normal limits. The estimated ejection fraction is 55-60%. The assessment of diastolic function is non-diagnostic. Left Atrium: The left atrium is mildly dilated. There is no thrombus visualized in the left atrial appendage. Right Ventricle: The right ventricular chamber size and systolic function are within normal limits. Right Atrium: The right atrium is mild to moderately dilated. A prominent eustachian valve is noted in the right atrium. A patent foramen ovale is not demonstrated by color Doppler. A bubble study was performed previously and was negative Aortic Valve: The aortic valve is trileaflet. There is no evidence of aortic regurgitation. There is no evidence of aortic stenosis. A mass is visualized on the aortic valve which appears consistent with a vegetation. The mass is located on the aortic side of the left coronary cusp. Measures 1.0cm x 0.9cm x 1.3cm Mitral Valve: The mitral valve leaflets are mildly thickened. There is moderate mitral regurgitation. There is no evidence of mitral stenosis. No vegetation is observed on the mitral valve. Tricuspid Valve: The tricuspid valve leaflets are normal. There is mild to moderate tricuspid regurgitation. No vegetation is observed on the tricuspid valve. Pulmonic Valve: The pulmonic valve appears normal. There is a trace pulmonic regurgitation. No vegetation is observed on the pulmonic valve. Pericardium: There is no significant pericardial effusion. Aorta: The aortic root appears normal. There is plaque visualized in the transverse aorta. There is plaque visualized in the descending aorta. Pulmonary Artery: The main pulmonary artery appears normal. Venous: The inferior vena cava appears normal in size. The flow pattern of the pulmonary veins appear normal. 3 out of 4 well visualized The superior vena cava appears normal. LA Procedures: All standard views were attempted within the limitations of patient tolerance and safety. History and physical as well as labs were reviewed. The patient was in a fasting state. Risks and benefits of the procedure, including alternatives, were discussed and written informed consent was obtained. The patient and/or their health care telephone service representative expressed understanding of the procedure, risks and benefits. Baseline and continuous monitoring of blood pressure, heart rate, pulse oximetry and heart rhythm was performed throughout the procedure. The appropriate time-out procedure was performed as per [facility] protocol. The patient was placed in the left lateral decubitus position.Unable to pass probe in this position. The patient was placed in an upright position. to introduce the transducer. The patient's posterior pharynx was anesthetized with 20ml of 2% viscous lidocaine. The patient received IV Midazolam with a total dose of 9 mg The patient received IV Fentanyl with a total dose of 75 mcg An oral bite block was inserted for protection of oral dentition. The multiplane transesophageal echocardiogram probe was inserted through the posterior oropharynx and advanced into the esophagus without difficulty. Multiple 2D images were obtained of the heart and its related structures. Color flow Doppler was used for evaluation. Spectral Doppler was also used. The atrial septum was interrogated with color flow Doppler. At the conclusion of the procedure the probe was removed with continuous suction without complications. The patient tolerated the procedure with no apparent complications. Conclusions The estimated ejection fraction is 55-60%. The right ventricular chamber size and systolic function are within normal limits. The left atrium is mildly dilated. The right atrium is mild to moderately dilated. A prominent eustachian valve is noted in the right atrium. A mass is visualized on the aortic valve which appears consistent with a vegetation, differential of mass such as a myxoma or fibroelastoma. The mass is located on the aortic side of the left coronary cusp, movement suggests a short stalk. Measures 1.0cm x 0.9cm x 1.3cm Other valves did not show evidence of vegetations. There is moderate mitral regurgitation. There is mild to moderate tricuspid regurgitation. There is a trace pulmonic regurgitation. There is plaque visualized in the transverse aorta and the descending aorta. Compared with prior study of 08/25/17, vegetation on the aortic valve measured 1.1 x 1.0, not significantly changed. Mild progression in MR and TR since prior study. Measurements Name Value Normal Range Ao root diameter (2D) 2.03 cm (2.1 - 3.5) Ascending Ao 2.97 cm (2.1 - 3.4) Name Value Normal Range MV E-wave Vmax 0.85 m/sec - MV deceleration time 120.96 msec - MV A-wave Vmax 0.45 m/sec - MV E:A ratio 1.87 ratio - Name Value Normal Range TR Vmax 3.54 m/sec - TR peak gradient 50.19 mmHg -
[2017-10-04] MEDS ORDERED: Benzocaine/Menthol LOZ* 1 LOZENGE MT PRN (14:40)
[2017-10-04] MEDS: Lactobacillus Acidophilu (GG)* 1 CAP CAP PO SCH ×2 (15:08→20:58)
[2017-10-04] MEDS: COENZYME Q10 100 MG PO SCH (15:08)
[2017-10-04] MEDS: Magnesium Oxide TAB* 400 MG PO SCH (15:08)
[2017-10-04] MEDS: Cholecalciferol TAB* 1000 UNITS PO SCH (15:08)
[2017-10-04] MEDS: CHONDROITIN PO SCH ×2 (15:09→20:59)
[2017-10-04] MEDS: GLUCOSAMINE PO SCH ×2 (15:09→20:59)
[2017-10-04] MEDS: MULTIVITAMINS PO SCH ×2 (15:09→20:59)
[2017-10-04] MEDS: MINERALS AREDS2 PO SCH ×2 (15:09→20:59)
[2017-10-04] MEDS: METHYLSULFONYLMETHANE PO SCH ×2 (15:09→20:59)
[2017-10-04] MEDS: [UNRECOGNIZED DRUG - REMARK] PO SCH (15:09)
[2017-10-04] MEDS: Atorvastatin* 10 MG TAB PO SCH (17:40)
[2017-10-05] MEDS: cefTRIAXone VIAL(*) 1,000 MG in NS 0.9% 50 ML* 50 ML IVPB SCH ×2 (01:37→15:10)
[2017-10-05] MEDS: MULTIVITAMINS PO SCH ×2 (08:19→21:52)
[2017-10-05] MEDS: METHYLSULFONYLMETHANE PO SCH ×2 (08:19→21:53)
[2017-10-05] MEDS: CHONDROITIN PO SCH ×2 (08:19→21:53)
[2017-10-05] MEDS: MINERALS AREDS2 PO SCH ×2 (08:19→21:52)
[2017-10-05] MEDS: GLUCOSAMINE PO SCH ×2 (08:19→21:53)
[2017-10-05] MEDS: PROPAFENONE HCL 425 MG PO SCH ×2 (08:19→21:51)
[2017-10-05] MEDS: [UNRECOGNIZED DRUG - REMARK] PO SCH (08:20)
[2017-10-05] MEDS: Magnesium Oxide TAB* 400 MG PO SCH (08:20)
[2017-10-05] MEDS: Cholecalciferol TAB* 1000 UNITS PO SCH (08:20)
[2017-10-05] MEDS: Lactobacillus Acidophilu (GG)* 1 CAP CAP PO SCH ×2 (08:20→21:53)
[2017-10-05] MEDS: COENZYME Q10 100 MG PO SCH (08:22)
--- NOTE | 2017-10-05 17:04 | PN ---
Subjective Date of Service: 10/05/17 Interval History: Pt anxious to be discharged Reviewed LA with her She has no complaints Family History: Unchanged from Admission Social History: Unchanged from Admission Past Medical History: Unchanged from Admission Objective Active Medications: Acetaminophen (Tylenol Tab*) 650 mg PO Q4H PRN PRN Reason: FEVER/PAIN Last Admin: 09/24/17 23:49 Dose: 650 mg Al Hydrox/Mg Hydrox/Simethicone (Maalox Plus*) 30 ml PO Q6H PRN PRN Reason: INDIGESTION Atorvastatin Calcium (Lipitor*) 10 mg PO 1700 [facility] Last Admin: 10/04/17 17:40 Dose: 10 mg Cholecalciferol (Vitamin D Tab*) 2,000 units PO 0900 [facility] Last Admin: 10/05/17 08:20 Dose: 2,000 units Coenzyme Q10 (Coenzyme Q10 (Nf)) 1 cap PO DAILY [facility] Last Admin: 10/05/17 08:22 Dose: Not Given Heparin Sodium (Porcine) (Heparin Flush Picc/Ml/Cvc(*)) 1 - 3 ml FLUSH 0600, 1800 [facility] PRN Reason: Protocol Last Admin: 10/05/17 08:18 Dose: 1 ml Ampicillin Sodium 2 gm/ Sodium (Chloride) 100 mls @ 200 mls/hr IVPB 0000,0600, 1200,1800 [facility] Last Admin: 10/05/17 12:30 Dose: 200 mls/hr Ceftriaxone Sodium 1,000 mg/ (Sodium Chloride) 50 mls @ 200 mls/hr IVPB 0200, 1400 [facility] Last Admin: 10/05/17 15:10 Dose: 200 mls/hr Lactobacillus Rhamnosus (Culturelle*) 1 cap PO 0900,2100 [facility] Last Admin: 10/05/17 08:20 Dose: 1 cap Magnesium Oxide (Magox 400 Tab*) 800 mg PO 0900 [facility] Last Admin: 10/05/17 08:20 Dose: 800 mg Multivitamins/Minerals (Preservision Areds 2) 1 cap PO BID [facility] Last Admin: 10/05/17 08:19 Dose: 1 cap Pto: Propafenone Hcl ([Rythmol Sr] 425 Mg) 425 mg PO BID [facility] Last Admin: 10/05/17 08:19 Dose: 425 mg Pto: Glucosamine/Chondroitin/Msm Joint Soother 1 dose PO BID [facility] PRN Reason: Protocol Last Admin: 10/05/17 08:19 Dose: 1 dose Pto: [place]in [place] (Mini Gel Capsules) 1 dose PO DAILY [facility] PRN Reason: Protocol Last Admin: 10/05/17 08:20 Dose: 1 dose Senna (Senokot Tab*) 1 tab PO BID PRN PRN Reason: CONSTIPATION Throat Lozenges (Chloraseptic Simba*) 1 simba MT Q6H PRN PRN Reason: SORE THROAT Vital Signs 10/04/17 10/05/17 10/05/17 20:00 07:40 08:00 Temperature 98.1 F Pulse Rate 68 Respiratory 18 16 18 Rate Blood Pressure 149/68 (mmHg) O2 Sat by Pulse 98 Oximetry Oxygen Devices in Use Now: None Appearance: sittin gin chair., NAD Eyes: No Scleral Icterus, PERRLA Ears/Nose/Mouth/Throat: Clear Oropharnyx, Mucous Membranes Moist Neck: NL Appearance and Movements; NL JVP, Trachea Midline Respiratory: Symmetrical Chest Expansion and Respiratory Effort, Clear to Auscultation Cardiovascular: RRR, - - 2/6 KATHY Abdominal: NL Sounds; No Tenderness; No Distention, No Hepatosplenomegaly Lymphatic: No Cervical Adenopathy Extremities: - - 1+ edema Neurological: Alert and Oriented x 3 Result Diagrams: 10/01/17 05:30 10/04/17 06:30 Microbiology and Other Data: Microbiology 09/06/17 17:55 Aerobic Blood Culture - Final Blood Venous No Growth Day 5 Anaerobic Blood Culture - Final No Growth Day 5 Blood Culture - Final 09/06/17 17:19 Aerobic Blood Culture - Final Blood Venous No Growth Day 5 Anaerobic Blood Culture - Final No Growth Day 5 Blood Culture - Final 09/06/17 18:35 Urine Culture - Final Urine No Growth (<1,000 CFU/mL) Assess/Plan/Problems-Billing Assessment: Mrs. Roque is an 81yo F with PMHx of HTN, HLD, Afib on AC, nephrolithiasis admitted with left hydronephrosis secondary to ureteral stone s/p stent, complicated by E. faecalis septicemia and aortic valve endocarditis, now Swing status for 6 weeks of IV antibiotics. - Patient Problems (1) Endocarditis Comment: Continue Ampicillin and Ceftriaxone, last day 10/08/17. - TTE showed unchanged AV vegetation. - LA unchanged veg. Some concern that this may represent a myxoma. Dr. Medellin relayed his conversation with Dr. Lisa that she is following up with other peers concerning next best step. (2) Atrial fibrillation Comment: nsr c/w Propafenone of coumadin prior to cystoscopy on 10/02/17 heparin sc for DVT prophylaxis (3) HTN (hypertension) Comment: - Controlled without BP meds. (4) Nephrolithiasis Comment: s/p cysto and stent placement in L ureter by Dr. Ayala on 08/22/17. Repeat renal US on 08/23/17 shows resolution of hydronephrosis. Lithotripsy and remoal of stent scheduled for 10/02/17. Warfarin stopped after dose on 09/25. Dr. Ayala requests that all anticoagulants be stopped 48 hrs before the lithotripsy, and not be restarted for 7-10 days afterwards (10/09-10/12) (5) DVT prophylaxis Comment: Discussed with Dr. Ayala 10/01. NO heparin except PICC line flush. Pt advised to take frequent walks so that she never sits for fmor than 2 hrs at a time. Status and Disposition: Swing status to complete 6 weeks of antibiotics.
[2017-10-05] MEDS: Atorvastatin* 10 MG TAB PO SCH (17:26)
[2017-10-06] MEDS: cefTRIAXone VIAL(*) 1,000 MG in NS 0.9% 50 ML* 50 ML IVPB SCH ×2 (01:58→14:27)
[2017-10-06] MEDS: COENZYME Q10 100 MG PO SCH (07:59)
[2017-10-06] MEDS: Cholecalciferol TAB* 1000 UNITS PO SCH (08:01)
[2017-10-06] MEDS: MINERALS AREDS2 PO SCH ×2 (08:01→21:24)
[2017-10-06] MEDS: GLUCOSAMINE PO SCH ×2 (08:01→21:24)
[2017-10-06] MEDS: PROPAFENONE HCL 425 MG PO SCH ×2 (08:01→21:29)
[2017-10-06] MEDS: [UNRECOGNIZED DRUG - REMARK] PO SCH (08:01)
[2017-10-06] MEDS: MULTIVITAMINS PO SCH ×2 (08:01→21:24)
[2017-10-06] MEDS: CHONDROITIN PO SCH ×2 (08:01→21:24)
[2017-10-06] MEDS: METHYLSULFONYLMETHANE PO SCH ×2 (08:01→21:24)
[2017-10-06] MEDS: Lactobacillus Acidophilu (GG)* 1 CAP CAP PO SCH ×2 (08:01→21:24)
[2017-10-06] MEDS: Magnesium Oxide TAB* 400 MG PO SCH (08:01)
[2017-10-06] MEDS: Atorvastatin* 10 MG TAB PO SCH (17:14)
[2017-10-07] MEDS: cefTRIAXone VIAL(*) 1,000 MG in NS 0.9% 50 ML* 50 ML IVPB SCH ×2 (02:20→14:10)
[2017-10-07] MEDS: Magnesium Oxide TAB* 400 MG PO SCH (08:03)
[2017-10-07] MEDS: Cholecalciferol TAB* 1000 UNITS PO SCH (08:04)
[2017-10-07] MEDS: Lactobacillus Acidophilu (GG)* 1 CAP CAP PO SCH ×2 (08:04→20:52)
[2017-10-07] MEDS: CHONDROITIN PO SCH ×2 (08:05→20:52)
[2017-10-07] MEDS: MULTIVITAMINS PO SCH ×2 (08:05→20:52)
[2017-10-07] MEDS: METHYLSULFONYLMETHANE PO SCH ×2 (08:05→20:52)
[2017-10-07] MEDS: PROPAFENONE HCL 425 MG PO SCH ×2 (08:05→20:53)
[2017-10-07] MEDS: MINERALS AREDS2 PO SCH ×2 (08:05→20:52)
[2017-10-07] MEDS: GLUCOSAMINE PO SCH ×2 (08:05→20:52)
[2017-10-07] MEDS: [UNRECOGNIZED DRUG - REMARK] PO SCH (08:07)
[2017-10-07] MEDS: COENZYME Q10 100 MG PO SCH (08:08)
[2017-10-07] MEDS: Atorvastatin* 10 MG TAB PO SCH (18:22)
[2017-10-08] MEDS: cefTRIAXone VIAL(*) 1,000 MG in NS 0.9% 50 ML* 50 ML IVPB SCH ×2 (02:38→13:55)
[2017-10-08] MEDS: COENZYME Q10 100 MG PO SCH (08:02)
[2017-10-08] MEDS: MULTIVITAMINS PO SCH (09:14)
[2017-10-08] MEDS: MINERALS AREDS2 PO SCH (09:14)
[2017-10-08] MEDS: Magnesium Oxide TAB* 400 MG PO SCH (09:14)
[2017-10-08] MEDS: Lactobacillus Acidophilu (GG)* 1 CAP CAP PO SCH (09:14)
[2017-10-08] MEDS: Cholecalciferol TAB* 1000 UNITS PO SCH (09:14)
[2017-10-08] MEDS: [UNRECOGNIZED DRUG - REMARK] PO SCH (09:15)
[2017-10-08] MEDS: PROPAFENONE HCL 425 MG PO SCH (09:15)
[2017-10-08] MEDS: METHYLSULFONYLMETHANE PO SCH (09:15)
[2017-10-08] MEDS: CHONDROITIN PO SCH (09:15)
[2017-10-08] MEDS: GLUCOSAMINE PO SCH (09:15)
[2017-10-08] MEDS ORDERED: NS 0.9% 1000 ML* 1,000 ML IV SCH (10:00)
[2017-10-08 15:32] VITALS: BP 138/52
--- NOTE | 2017-10-09 03:44 | DS ---
CC: Dr. Beaulieu; Dr. Ayala; Dr. Read * DISCHARGE SUMMARY: DATE OF ADMISSION TO THE HOSPITAL: 08/23/17 DATE OF TRANSITION TO SWING STATUS: 08/28/17 DATE OF DISCHARGE FROM THE HOSPITAL: 10/08/17 PRIMARY DIAGNOSES: 1. Sepsis secondary to Enterococcus faecalis. 2. Urinary tract infection. 3. Infective endocarditis - aortic valve. 4. Hydronephrosis, status post cystoscopy and stenting and stent removal. SECONDARY DIAGNOSES: 1. Atrial fibrillation. 2. Hypertension. 3. Hyperlipidemia. 4. Nephrolithiasis. 5. Acute on chronic kidney failure. PROCEDURES PERFORMED DURING HOSPITAL STAY: 1. Lithotripsy with stent placement and stent removal by Dr. Ayala. MEDICATIONS ON DISCHARGE: Include: 1. Coenzyme Q10 100 mg in the morning. 2. Cholecalciferol 2000 units in the morning. 3. Glucosamine 1500 mg twice daily. 4. Simvastatin 20 mg in the evening. 5. Propafenone 425 mg twice daily. 6. [place]-3 1 cap daily. 7. Multivitamin with minerals 1 tab twice daily. 8. Coumadin 4 mg in the evening. 9. Acetaminophen 650 mg every 4 hours as needed for pain or fever. Please note discontinuation of an antihypertensive secondary to controlled blood pressure, systolics ranging from 95 to 150 over the week prior to her discharge. LABS TO BE CHECKED UPON DISCHARGE: INR ordered for 09/12/17 with results to be copied to Dr. Beaulieu as well as Dr. Read. IMAGING PERFORMED DURING HOSPITAL STAY: Renal ultrasound on 09/21/17, no hydronephrosis. There is a left ureteral stent present. Pertinent microbiology, blood and urine cultures positive for enterococcus, resistant to ciprofloxacin, erythromycin, levofloxacin, streptomycin, and daptomycin. HISTORY OF PRESENT ILLNESS AND HOSPITAL COURSE: This is an 81-year-old female with past medical history as outlined in the history of present illness, on the day of admission, presented to the hospital on 08/22/17 with lower abdominal pain, found with T-max of 102 as well as other evidence for sepsis. The patient was admitted to the hospital, found to have Enterococcus bacteremia originating from urinary source with obstructing ureteral stone. She was taken by Dr. Ayala to the operating room and had a stent placed with resolution of her hydronephrosis. She returned to the operating room on 10/02/17 and the stent was removed. The patient's Coumadin was held prior to stent removal with a request not to be restarted for 7 to [address] Ayala. For this reason , Coumadin is being restarted tomorrow, the day after discharge with a followup INR 5 days status post first dose. Review of the dosing that the patient received in the hospital indicates that 6 mg was too high and she remained therapeutic for over a week on 4 mg daily and this is the dose that she will be restarted on upon discharge. Transesophageal echocardiogram was performed at the discretion of our infectious disease specialist, which is notable for a mass in the arterial side of the aortic valve, suspicious for infective endocarditis. She remained in the hospital, advised to complete 6 weeks of IV antibiotics. Her blood culture has cleared. She had no further evidence of continued active infection. A repeat transesophageal echocardiogram indicated a stable mass in the same location. I suspected infective endocarditis. I discussed with Dr. Lisa who raised concern about a myxoma and directed me to her primary land leasing information clerk, Dr. Read to investigate further. After discussing with Dr. 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 Of note, the night prior to discharge, the patient got up to the bathroom, after voiding, felt dizzy and lightheaded and had an episode of almost losing consciousness, resolved with putting her head down on the toilet. She had orthostatics checked the day of discharge and she was orthostatic from lying flat to standing. The patient dropped her systolic blood pressure, although did not have symptoms at that time. She was able to ambulate around the unit. She was given a liter of fluid and felt better with resolution of her orthostatic vital signs. On review of the patient's history, she notes that this happened several times over the last decade only when in the hospital and voiding in the middle of the night. I suspect some combination of volume depletion as well as a vasovagal etiology in the setting of recurrent episodes of presyncopal events occurring overnight while voiding. Notable events include the patient's controlled blood pressure off of antihypertensives. This should be addressed as an outpatient as her blood pressure may rise upon discharge. At followup, please; 1. Follow INR that I have ordered for 10/13/17. 2. Adjust Coumadin as necessary. 3. Monitor blood pressure, reintroduce medications as deemed necessary. 4. Ensure followup with Dr. Read for continued followup of aortic valvular mass. 5. No other specific labs or vitals that need followup. Reasons to return to the hospital including, but not limited to, recurrent or worsening symptoms, chest pain, shortness of breath, nausea, vomiting, lightheadedness, loss of consciousness, or near loss of consciousness, fevers, or bleeding from any source discussed with the patient. She acknowledged understanding. TIME SPENT: Greater than 60 minutes were spent on the discharge of this patient , greater than half was spent [id number] with the patient. [id number]/[facility] #: [id number] DEVEN
--- NOTE | 2017-10-09 03:52 | CONS ---
CC: Dr. Alexis Beaulieu CARDIOLOGY CONSULTATION: DATE OF CONSULT: 10/06/17 REFERRING PHYSICIAN: Dr. Jimmy Leon. REASON FOR CARDIOLOGY CONSULT: Cardiac mass. HISTORY OF PRESENT ILLNESS: I was kindly asked to see this patient for Cardiology consultation because of cardiac mass seen on transesophageal echocardiogram. Ms. Roque is a pleasant 81-year-old woman with a long history of paroxysmal atrial fibrillation, which is well suppressed with propafenone. She was admitted to [facility] in late July 2017 and was found to have left hydronephrosis from obstructing nephrolithiasis complicated by E. faecalis bacteremia. There was also concern for aortic valve endocarditis as a small mass was seen on transesophageal echocardiogram at that time on the aortic side of her left coronary cusp. The patient has significantly improved with 6 weeks of intravenous antibiotics. Two days ago, she underwent repeat transesophageal echocardiogram and this small 1-cm left coronary cusp aortic valve mass on the aortic side was seen still. 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 The patient herself feels significantly improved since receiving IV antibiotics. She denies chest pain & describes her breathing as fine. She has only rare palpitations including a brief episode of paroxysmal atrial fibrillation several nights ago by her description, which resolved with metoprolol. She denies a history of stroke. She is anxious to go home in several days after IV antibiotics are complete. PAST MEDICAL HISTORY: Includes longstanding history of atrial fibrillation which is well suppressed with propafenone for many years and she is usually on anticoagulation. Negative wilson jorge luis 04/28/14. She has a history of nephrolithiasis , status post recent lithotripsy and had a stent again with E. faecalis septicemia, which is being treated. She has a history of hypertension, which is treated. She has a history of hyperlipidemia. ALLERGIES: To medications are CEFUROXIME. She denies shrimp, seafood, or dye allergies. FAMILY HISTORY: Her father of cardiac arrest at the age of 81. Her mother lived to be 96. She had an older brother with diabetes. She had an older brother with cancer of the bladder with metastasis. No family history of stroke. SOCIAL HISTORY: She is recently after 63 years after her from heart problems just this past summer of 2016. She does not smoke cigarettes or use illicit drugs and she occasionally drinks alcohol. 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 She is planning to restart exercise with walking once she is discharged. REVIEW OF SYSTEMS: She denies a personal history of stroke, TIA, cancer, vomiting of blood, coughing up blood, bright red blood per rectum, bleeding stomach ulcers. She may have had a hematuria, was found to have renal calculi. She denies asthma, emphysema, pneumonia, tuberculosis, sleep apnea, home oxygen use, diabetes. She does have a history of hypertension. She denies prior [place], congestive heart failure, cardiac surgery, cardiac murmurs. She likely has had an ischemic evaluation in my office, but I do not have those results with me at this time. She denies psychiatric illnesses. She denies lupus, psoriasis, seizures, Parkinson's disease, myasthenia gravis, thyroid disorders, liver disorders, kidney disorders, claudication symptoms, pulmonary emboli, deep venous thrombosis, peripheral arterial disease, heartburn, or peripheral edema. All other review of systems are negative except as described per this medical record. PHYSICAL EXAM: On general exam, she is a pleasant lady in no acute distress. Blood pressure 151/69, pulse is 59, O2 saturation 98%, respiratory rate 16, temperature 97.6 degrees Fahrenheit. On general exam, she is a pleasant lady, who looks improved from over the past month and she had been appearing toxic earlier this month, in no acute distress, resting comfortably. HEENT shows the cranium is normocephalic and atraumatic. She has moist mucosal membranes. Neck veins are not distended. There are no carotid bruits. Visible skin is warm and perfused. Affect appropriate. She appears oriented. No significant kyphoscoliosis on back exam. Lungs are clear to auscultation. No wheezes, no rales. Cardiac Exam: S1, S2. Regular rate. Soft holosystolic murmur heard without radiation. There is no rub or gallop. PMI is nondisplaced. Abdomen is soft, nondistended. Appears benign. Extremities without significant edema, pulses appear intact. DIAGNOSTIC STUDIES/LAB DATA: The patient completed a transesophageal echocardiogram, which was a repeat on 10/04/17 when compared to prior one completed 08/25/17. The transesophageal echocardiogram on 10/04/17 showed normal left ventricular ejection fraction of 55% to 60% with mild left atrial dilatation, mild- to-moderate right atrial dilatation, 1.0 x 0.9 x 1.3 cm aortic side of the left coronary cusp of the aortic valve, moderate mitral regurgitation, [id number] tricuspid regurgitation. This appeared similar to prior transesophageal echocardiogram from 08/25/17. IMPRESSION: Ms. Roque is a pleasant 81-year-old woman with a longstanding history of paroxysmal atrial fibrillation, which is overall well suppressed with current propafenone use. She has had Enterococcus faecalis septicemia with initial concern for aortic valve endocarditis. 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 In any case, there does not appear to be a surgical indication for removal of this small fibroelastoma especially as the patient has not had any history of embolic phenomena, is maintained chronically on Coumadin, and it is small in size The patient herself states she is not interested in cardiac surgical resection of this small fibroelastoma. RECOMMENDATIONS: 1. The patient will complete IV antibiotics for 6 weeks as ordered for E. Faecalis bacteremia of renal source with possible secondary seeding of her small aortic valve LCC fibroelastoma. 2. The patient may follow up with myself in 2 months as an outpatient. I would tentatively plan to repeat a transesophageal echocardiogram in a few months, but for now, no surgical resection is needed and again this is in accordance with the patient's wishes nor do I feel that that is required. 3. The patient will continue propafenone long-term for suppression of PAF, which is overall well suppressed. She is holding Coumadin as per the urologist until 10/10/17 given recent lithotripsy on 10/03/17. 4. Other management as per the hospitalist medicine service and I have discussed the case with Dr. Leon of . The above was discussed in detail with the patient. She appears to be in agreement with these recommendations. Many thanks for this kind cardiovascular consultation opportunity. Please do not hesitate to contact me if you have any questions or concerns regarding the patient's cardiovascular consultative care. [id number]/[facility] #: [id number] MTDD
== END 2017-10-08 12:39 | disposition home or self-care (01) | DRG 871 ==
LOC: SSU 14:40 → MED 08-29 18:45
PROVIDERS: ADMIT Internal Medicine; ATTEND Internal Medicine
PROC: 02HV33Z Insertion of Infusion Device into Superior Vena Cava, Percutaneous Approach (ICD-10-PCS; 2017-08-30)
PROC: B24BZZ4 Ultrasonography of Heart with Aorta, Transesophageal (ICD-10-PCS; principal; 2017-09-03)
PROC: 0TP98DZ Removal of Intraluminal Device from Ureter, Via Natural or Artificial Opening Endoscopic (ICD-10-PCS; 2017-10-02)
DX: A41.81 Sepsis due to Enterococcus (principal); I33.0 Acute and subacute infective endocarditis; N17.9 Acute kidney failure, unspecified; I42.4 Endocardial fibroelastosis; N39.0 Urinary tract infection, site not specified; I48.0 Paroxysmal atrial fibrillation; I34.0 Nonrheumatic mitral (valve) insufficiency; N20.0 Calculus of kidney; B95.2 Enterococcus as the cause of diseases classified elsewhere; E78.5 Hyperlipidemia, unspecified; I10 Essential (primary) hypertension; R19.7 Diarrhea, unspecified; M54.32 Sciatica, left side; Z82.49 Family history of ischemic heart disease and other diseases of the circulatory system; Z83.3 Family history of diabetes mellitus; Z80.52 Family history of malignant neoplasm of bladder; Z88.1 Allergy status to other antibiotic agents; Z79.01 Long term (current) use of anticoagulants
CPT/HCPCS: 36415; 74000; 74176; 76775; 80048; 80053; 80170; 81003; 81015; 82565; 84520; 85014; 85018; 85025; 85049; 85610; 86140; 87040; 87086; 89190; 93005; 93308; 93312; 93325; 99156; 99157; A9270-GY; C1751; J0290; J0696; J1580; J1644; J2250; J2310; J3010

== ENCOUNTER 2018-01-09 09:10 | Emergency (ER) | payer MEDICARE, OTHER ==
--- NOTE | 2018-01-09 09:52 | ED ---
Lower Extremity - HPI Summary HPI Summary: 82year-old female presents with knee pain for the past couple days. She states that pain has been traveling up to her back. She states she has been having numbness and tingling in her leg. She denies any fevers. Denies any loss of bowel or bladder or sinus seizure. She denies any weakness. States pain is greatest in the morning but is better with movement. She has been taking Tylenol for pain with minimal relief. She has a history of bilateral knee replacements. She states there was some swelling to her right leg. She has never had this before. She is on Coumadin for A. fib. She is not diabetic. - History of Current Complaint Chief Complaint: EDBackInjuryPain Stated Complaint: RT KNEE/BACK PAIN Time Seen by Provider: 01/09/18 09:22 Pain Intensity: 2 - Allergies/Home Medications Allergies/Adverse Reactions: Allergies Allergy/AdvReac Type Severity Reaction Status Date / Time cefuroxime Allergy Intermediate Shortness Verified 01/09/18 10:09 of Breath Home Medications: Home Medications Diltiazem TAB* [Cardizem 60 MG Tab*] 60 mg PO TID 01/09/18 [History Confirmed ] Furosemide TAB* [Lasix TAB*] 20 mg PO QAM 01/09/18 [History Confirmed 01/09/18] Multivitamins/Minerals TAB* [Theragran/minerals TAB*] 1 tab PO QAM 01/09/18 [ History Confirmed 01/09/18] Potassium Chlor TAB* [Klor Con ER TAB*] 10 meq PO QPM 01/09/18 [History Confirmed 01/09/18] Ubidecarenone [Coq10] 100 mg PO DAILY 01/09/18 [History Confirmed 01/09/18] Vit C/E/Zn/Coppr/Lutein/Zeaxan [Preservision Areds 2 Softgel] 1 cap PO BID 01/09 [History Confirmed 01/09/18] Warfarin TAB(*) [Coumadin TAB(*)] 4 mg PO .Wednesdays01/09/18 [History Confirmed 01/09/18] Warfarin TAB(*) [Coumadin TAB(*)] 6 mg PO .SUMOTUTHFRSA 01/09/18 [History Confirmed 01/09/18] PMH/Surg Hx/FS Hx/Imm Hx Endocrine/Hematology History: Reports: Hx Anticoagulant Therapy Cardiovascular History: Reports: Hx Hypertension - controlled with medication, Hx Valvular Heart Disease - 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, Other Cardiovascular Problems/Disorders - Hx of A-fib History: Reports: Hx Kidney Infection - on antibiotics in hospital, Hx Kidney Stones - LEFT SIDE, Other Problems/Disorders - stent placed to L side Musculoskeletal History: Reports: 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. 1960, 1966 [facility]. RIGHT CARPEL TUNNEL RELEASE 1977 [facility]. RETINAL TEARS LASER AND CRYO TREATMENTS-6 [id number]. RETINAL BUCKLE IMPLANT LEFT EYE 1995 [facility] [place]. SINUS SURGERY 2000 [facility]. BILATERAL KNEE REPLACEMENTS 2003 [facility]. BILATERAL CATARACT 2008 [facility]. EXCISION BENIGN CYST RIGHT BREAST 02/2017 [facility]. LEFT STENT INSERTION for kidney stone 06/2017 Hx Anesthesia Reactions: No - Immunization History Date of Influenza Vaccine: 06/2017 Infectious Disease History: No Infectious Disease History: Denies: Traveled Outside the [place] in Last 30 Days - Family History Known Family History: Positive: Cardiac Disease - Social History Alcohol Use: Occasionally Alcohol Amount: 1 monthly- maybe Substance Use Type: Reports: None Smoking Status (MU): Never Smoked Tobacco Have You Smoked in the Last Year: No Review of Systems Negative: Fever Negative: Chest Pain Negative: Shortness Of Breath Positive: Myalgia - right knee and back pain right side All Other Systems Reviewed And Are Negative: Yes Physical Exam Triage Information Reviewed: Yes Vital Signs On Initial Exam: Initial Vitals Temp Pulse Resp BP Pulse Ox 97.4 F 88 17 128/67 98 01/09/18 09:11 01/09/18 09:11 01/09/18 09:11 01/09/18 09:11 01/09/18 09:11 Vital Signs Reviewed: Yes Appearance: Positive: Well-Appearing Skin: Positive: Warm, Dry Head/Face: Positive: Normal Head/Face Inspection Eyes: Positive: Normal, Conjunctiva Clear Respiratory/Lung Sounds: Positive: Clear to Auscultation, Breath Sounds Present Cardiovascular: Positive: Normal, RRR Musculoskeletal: Positive: Strength/ROM Intact - right leg, Other - good pulses , sensation grossly intact, tenderness over right SI joint, nontender midline back, pos SLR, full ROM right knee. Negative: Edema Right - knee Neurological: Positive: Normal Psychiatric: Positive: Normal Diagnostics - Vital Signs Vital Signs Temp Pulse Resp BP Pulse Ox 01/09/18 09:11 97.4 F 88 17 128/67 98 - Laboratory Result Diagrams: 01/09/18 09:46 01/09/18 09:46 Lab Statement: Any lab studies that have been ordered have been reviewed, and results considered in the medical decision making process. Lower Extremity Course/Dx - Course Course Of Treatment: 82year-old female presents with knee pain for the past couple days. She states that pain has been traveling up to her back. She states she has been having numbness and tingling in her leg. She denies any fevers. Denies any loss of bowel or bladder or sinus seizure. She denies any weakness. States pain is greatest in the morning but is better with movement. She has been taking Tylenol for pain with minimal relief. She has a history of bilateral knee replacements. She states there was some swelling to her right leg. She has never had this before. She is on Coumadin for A. fib. She is not diabetic. on exam tenderness SI joint. sensation grossly intact. full ROM back and knee. CT back shows degenerative changes. knee small joint effusion. labs wnl. u/s neg. symptoms most likely due to sciatica pain. will treat with steriod and have follow up with PT and primary. patient understand and agrees with plan. - Diagnoses Differential Diagnosis/HQI/PQRI: Positive: DVT, Fracture (Closed), Sprain, Strain Provider Diagnoses: Right leg pain, Back pain Discharge - Discharge Plan Condition: Good Disposition: HOME Patient Education Materials: Back Pain (ED) Referrals: Alexis Beaulieu MD [Primary Care Provider] - [facility] [place] Physical therapy,PT [Medical Doctor] - Additional Instructions: Follow directions on package for Medrol pack Apply lidocaine patches to area for up to 12 hours in one 24 hour period Use Tylenol for pain every 6 hours ice/heat area, move as much as possible Follow up with primary within 5 days Follow up with PT Return to ED if develop any new or worsening symptoms
[2018-01-09] MEDS ORDERED: Lidocaine PATCH 5%* 1 PATCH TRANSDERM SCH (10:00)
[2018-01-09 10:02] LABS: ABS Basophils 0 10^3/ul (0-0.2); ABS Eosinophils 0 10^3/ul (0-0.6); ABS Lymphocytes 0.8 10^3/ul (1.0-4.8); ABS Monocytes 0.5 10^3/ul (0-0.8); ABS Nucleated RBC 0 10^3/ul; Eosinophil % 0.8 % (0-6); Hematocrit 43 % (35-47); Hemoglobin 14.7 g/dl (12.0-16.0); Lymphocyte % 15.3 % (25-47); Mean Corpuscular HGB Conc 34 g/dl (31-36); Mean Corpuscular Hemoglobin 31 pg (27-31); Mean Corpuscular Volume 90 fL (80-97); Mean Platelet Volume 9 um3 (7.4-10.4); Nucleated Red Blood Cells % 0.3; Platelet Count 173 10^3/ul (150-450); Red Blood Count 4.74 10^6/ul (4.0-5.4); Red Cell Distribution Width 14 % (10.5-15); White Blood Count 5.3 10^3/ul (3.5-10.8)
[2018-01-09 10:26] LABS: EGFR Non-African American 53.6 (>60)
--- NOTE | 2018-01-09 10:28 | RAD ---
HISTORY: Back pain into right leg COMPARISONS: None TECHNIQUE: Multiple contiguous axial CT scans were obtained of the lumbar spine without intravenous contrast, with coronal and sagittal multiplanar reformations. FINDINGS: SPINAL CANAL: Evaluation of the central canal is limited on CT technique; however, there is no obvious canalicular mass or epidural hemorrhage. ALIGNMENT: There is grade 1 retrolisthesis of L1 on L2 with grade 1 anterolisthesis of L4 and L5. VERTEBRAL BODIES: There is multilevel anterolateral marginal osteophyte formation. JOINTS: .There is diffuse extensive facet osteoarthritis. MUSCULATURE: There is moderate fatty infiltration. INTERVERTEBRAL DISCS: There is diffuse loss of intervertebral disc height throughout the spine. AXIAL IMAGES: . T11-T12: There is right paracentral posterior osteophyte versus calcified disc protrusion. This measures 0.3 cm in depth. There is no osseous neural foraminal area or central canal stenosis. T12-L1: There is a broad-based partially calcified central disc protrusion measuring up to 0.4 cm in depth. There is no osseous neural foraminal area or central canal stenosis. L1-L2: There is a calcified central disc protrusion versus posterior osteophyte measuring 0.5 cm in depth. There is mild narrowing of central canal. There is no significant neural foraminal narrowing. L2-L3: There is a broad-based partially calcified disc bulge at bilateral facet hypertrophy. There is ligamentous hypertrophy. There is moderate bilateral neural foraminal narrowing. There is severe narrowing of the central canal. L3-L4: There is a broad-based disc bulge with a partially calcified central disc protrusion measuring 0.4 cm. There is bilateral facet hypertrophy. There is mild bilateral neural foraminal area. There is moderate narrowing of the central canal. L4-L5: There is broad-based disc bulge/rolled disc. There is bilateral facet hypertrophy. There is marginal osteophyte formation at the naya bilaterally. There is moderate bilateral neural foraminal narrowing. There is no significant central canal stenosis. L5-S1: There is bilateral facet hypertrophy. There is marginal osteophyte formation at the neural foramina bilaterally. There is severe bilateral neural foraminal narrowing. There is no significant central canal stenosis. SOFT TISSUES: There is atherosclerosis of the abdominal aorta. OTHER: None IMPRESSION: 1. DEGENERATIVE DISC DISEASE AND OSTEOARTHRITIS. 2. THERE ARE MULTIPLE CALCIFIED DISC PROTRUSIONS NOTED ABOVE. 3. THERE IS SEVERE NARROWING OF CENTRAL CANAL AT L2-L3 WITH MODERATE NARROWING AT L3-L4 AND MILD NARROWING AT L1-L2. 4. THERE IS MULTILEVEL NEURAL FORAMINAL NARROWING DESCRIBED ABOVE.
--- NOTE | 2018-01-09 10:48 | RAD ---
Indication: Sudden onset RIGHT knee pain starting after shoveling. Comparison: June 16, 2008 Technique: RIGHT knee: AP, lateral, sunrise views. Report: RIGHT total knee prosthesis in place. Negative for periprosthetic fracture or stigmata of prosthesis loosening. Small suprapatellar joint effusion. Peripheral vascular calcifications. Unremarkable soft tissue contours. IMPRESSION: 1. No evidence for periprosthetic fracture or stigmata of prosthesis loosening. 2. Small joint effusion.
--- NOTE | 2018-01-09 11:22 | RAD ---
INDICATION: Right calf and thigh pain. COMPARISON: There are no prior studies available for comparison. TECHNIQUE: Multiple real-time, color flow and Doppler tracings of the right lower extremity were obtained. FINDINGS: The common femoral, femoral, profunda femoral and popliteal veins all demonstrate normal compressibility, augmentation with compression and phasic response with respiration. The posterior tibial and peroneal veins demonstrate normal compressibility and augmentation with compression. IMPRESSION: NO EVIDENCE FOR DEEP VENOUS THROMBOSIS.
[2018-01-09 12:52] VITALS: BP 134/82
== END 2018-01-09 12:52 | disposition home or self-care (01) ==
LOC: ED 09:10
DX: M79.604 Pain in right leg (principal); M54.9 Dorsalgia, unspecified; Z79.01 Long term (current) use of anticoagulants; I10 Essential (primary) hypertension; I48.91 Unspecified atrial fibrillation
CPT/HCPCS: 36415; 72131; 80053; 85025; 99282; A9270-GY

== ENCOUNTER 2023-05-04 14:50 | Inpatient (IN) ==
[2023-05-04 16:23] LABS: ABS Eosinophils 0.1 10^3/uL (0.0-0.5); ABS Lymphocytes 0.8 10^3/uL (1.0-4.8); ABS Monocytes 0.4 10^3/uL (0.0-0.9); ABS Neutrophils 6.1 10^3/uL (1.5-7.6); ABS Nucleated RBC 0.01 10^3/ul; Eosinophil % 1.1 %; Hematocrit 39.1 % (35-45); Hemoglobin 13.4 g/dL (11.5-14.3); Lymphocyte % 11.3 %; Mean Corpuscular Hemoglobin 32.2 pg (27-33); Mean Corpuscular Hgb Conc 34.2 g/dL (31-36); Mean Corpuscular Volume 93.9 fL (80-97); Mean Platelet Volume 8.4 fL (7.5-11.2); Nucleated Red Blood Cells % 0.1 /100 WBC (0.0-0.4); Platelet Count 227 10^3/uL (150-450); Red Blood Count 4.16 10^6/uL (3.63-4.92); White Blood Count 7.5 10^3/uL (3.8-11.8)
[2023-05-04 16:47] LABS: ALT 25 U/L (7-52); Albumin 3.7 g/dL (3.2-5.2); Albumin/Globulin Ratio 1.4 (1-3); Alkaline Phosphatase 78 U/L (35-149); Blood Urea Nitrogen 33 mg/dL (6-24); C Reactive Protein 14.39 mg/L (<8.01); CO2 Carbon Dioxide 28 mmol/L (22-32); Calcium 10.3 mg/dL (8.6-10.3); Chloride 107 mmol/L (101-111); Creatinine, Serum 1.04 mg/dL (0.51-0.95); Globulin 2.6 g/dL (2-4); Glucose 107 mg/dL (70-100); Sodium 141 mmol/L (135-145); Total Protein 6.3 g/dL (6.4-8.9); eGFR CKD-EPI 51.7 (>60)
[2023-05-04 17:04] LABS: Anion Gap 6 mmol/L (2-16)
[2023-05-04] MEDS ORDERED: cefTRIAXone 1 gm/50 mL D5W 1 GM/50 ML BAG IV ONE (17:06)
[2023-05-04] MEDS ORDERED: Polyethylene Glycol 3350 17 GM PACKET PO PRN (18:46)
[2023-05-04] MEDS ORDERED: Senna TAB 8.6 mg TAB PO PRN (18:46)
[2023-05-04 21:49] LABS: TSH Ultra Thyroid Stim Horm 0.78 mcIU/mL (0.34-5.60)
[2023-05-04 21:51] LABS: Urine Appearance Cloudy; Urine Bilirubin Negative (Negative); Urine Blood 3+ (Negative); Urine Color Yellow; Urine Glucose Negative (Negative); Urine Ketones Negative (Negative); Urine Nitrite Positive (Negative); Urine Protein 1+(30 mg/dL) (Negative); Urine Specific Gravity 1.014 (1.002-1.030); Urine Urobilinogen Negative (Negative)
[2023-05-04 21:59] LABS: Urine Amorphous Crystals Present (Absent); Urine Bacteria 2+ (Absent); Urine Red Blood Cell 3+(>10/hpf) (Absent); Urine Squamous Epithelial Cell Present (Absent); Urine White Blood Cell 3+(>20/hpf) (Absent)
[2023-05-04 22:00] LABS: Folate > 20.00 ng/mL (5.90-24.80)
[2023-05-04 22:01] LABS: Vitamin B12 948 pg/mL (180-914)
[2023-05-05] MEDS: NF: Multivitamins/Mins AREDS2 (NF) CAP PO SCH ×3 (00:49→21:07)
[2023-05-05 06:39] LABS: ABS Eosinophils 0.1 10^3/uL (0.0-0.5); ABS Monocytes 0.5 10^3/uL (0.0-0.9); ABS Neutrophils 4.1 10^3/uL (1.5-7.6); ABS Nucleated RBC 0.01 10^3/ul; Eosinophil % 1.9 %; Hematocrit 34.5 % (35-45); Lymphocyte % 17.7 %; Mean Corpuscular Hemoglobin 32.9 pg (27-33); Mean Corpuscular Hgb Conc 34.7 g/dL (31-36); Mean Corpuscular Volume 94.7 fL (80-97); Mean Platelet Volume 7.6 fL (7.5-11.2); Nucleated Red Blood Cells % 0.1 /100 WBC (0.0-0.4); Platelet Count 192 10^3/uL (150-450); Red Blood Count 3.64 10^6/uL (3.63-4.92); Red Cell Distribution Width 13.6 % (12-17); White Blood Count 5.7 10^3/uL (3.8-11.8)
[2023-05-05 06:53] LABS: Calcium 9.1 mg/dL (8.6-10.3); Creatinine, Serum 0.8 mg/dL (0.51-0.95); Magnesium 1.9 mg/dL (1.9-2.7); Potassium 3.5 mmol/L (3.5-5.0); eGFR CKD-EPI 70.8 (>60)
[2023-05-05] MEDS: Cholecalciferol (VIT D3) 1,000 unit TAB PO SCH (09:56)
[2023-05-05] MEDS: cefTRIAXone 1 gm/50 mL D5W 1 GM/50 ML BAG IV SCH (17:39)
[2023-05-05] MEDS: CMCS: Simvastatin 10 mg TAB (NF) PO SCH (20:56)
[2023-05-06 07:23] LABS: ABS Eosinophils 0.1 10^3/uL (0.0-0.5); ABS Lymphocytes 0.8 10^3/uL (1.0-4.8); ABS Monocytes 0.5 10^3/uL (0.0-0.9); ABS Neutrophils 4.1 10^3/uL (1.5-7.6); ABS Nucleated RBC 0.01 10^3/ul; Eosinophil % 1.8 %; Hemoglobin 12.7 g/dL (11.5-14.3); Lymphocyte % 13.8 %; Mean Corpuscular Hemoglobin 33.2 pg (27-33); Mean Corpuscular Hgb Conc 34.4 g/dL (31-36); Mean Corpuscular Volume 96.6 fL (80-97); Mean Platelet Volume 8.8 fL (7.5-11.2); Nucleated Red Blood Cells % 0.1 /100 WBC (0.0-0.4); Platelet Count 169 10^3/uL (150-450); Red Blood Count 3.83 10^6/uL (3.63-4.92); Red Cell Distribution Width 14.6 % (12-17); White Blood Count 5.5 10^3/uL (3.8-11.8)
[2023-05-06 07:35] LABS: Calcium 9.4 mg/dL (8.6-10.3); Creatinine, Serum 0.85 mg/dL (0.51-0.95); Potassium 3.5 mmol/L (3.5-5.0); eGFR CKD-EPI 65.9 (>60)
[2023-05-06] MEDS: Cholecalciferol (VIT D3) 1,000 unit TAB PO SCH (11:12)
[2023-05-06] MEDS: NF: Multivitamins/Mins AREDS2 (NF) CAP PO SCH ×2 (11:17→20:25)
[2023-05-06] MEDS: cefTRIAXone 1 gm/50 mL D5W 1 GM/50 ML BAG IV SCH (17:37)
[2023-05-06] MEDS: CMCS: Simvastatin 10 mg TAB (NF) PO SCH (20:25)
[2023-05-07] MEDS: Cholecalciferol (VIT D3) 1,000 unit TAB PO SCH (08:16)
[2023-05-07 09:37] LABS: ABS Eosinophils 0.1 10^3/uL (0.0-0.5); ABS Lymphocytes 0.8 10^3/uL (1.0-4.8); ABS Monocytes 0.3 10^3/uL (0.0-0.9); ABS Neutrophils 4.8 10^3/uL (1.5-7.6); ABS Nucleated RBC 0.01 10^3/ul; Eosinophil % 2.1 %; Hematocrit 39.9 % (35-45); Hemoglobin 13.7 g/dL (11.5-14.3); Lymphocyte % 12.4 %; Mean Corpuscular Hemoglobin 32.6 pg (27-33); Mean Corpuscular Hgb Conc 34.3 g/dL (31-36); Mean Corpuscular Volume 95.1 fL (80-97); Mean Platelet Volume 7.8 fL (7.5-11.2); Nucleated Red Blood Cells % 0.2 /100 WBC (0.0-0.4); Platelet Count 243 10^3/uL (150-450); Red Blood Count 4.19 10^6/uL (3.63-4.92); Red Cell Distribution Width 14.2 % (12-17); White Blood Count 6.1 10^3/uL (3.8-11.8)
[2023-05-07 10:17] LABS: Calcium 9.8 mg/dL (8.6-10.3); Creatinine, Serum 0.73 mg/dL (0.51-0.95); Magnesium 2.1 mg/dL (1.9-2.7); Potassium 3.4 mmol/L (3.5-5.0); eGFR CKD-EPI 79.1 (>60)
[2023-05-07] MEDS: NF: Multivitamins/Mins AREDS2 (NF) CAP PO SCH ×2 (10:35→21:05)
[2023-05-07] MEDS: Potassium Chlor 20 meq TAB.ER PO SCH (10:41)
[2023-05-07] MEDS: CMCS: Simvastatin 10 mg TAB (NF) PO SCH (22:51)
[2023-05-08] MEDS ORDERED: KCL 20 MEQ/100 ML IVPREMIX 20 MEQ/100 ML BAG IV ONE (06:47)
[2023-05-08 08:07] LABS: Calcium 10.1 mg/dL (8.6-10.3); Potassium 4.2 mmol/L (3.5-5.0); eGFR CKD-EPI 54.2 (>60)
[2023-05-08] MEDS: Potassium Chlor 20 meq TAB.ER PO SCH (09:46)
[2023-05-08] MEDS: Cholecalciferol (VIT D3) 1,000 unit TAB PO SCH (09:46)
[2023-05-08] MEDS: NF: Multivitamins/Mins AREDS2 (NF) CAP PO SCH (09:47)
[2023-05-08 10:33] VITALS: BP 110/63
[2023-05-08 11:02] LABS: Rapid COVID-19 Molecular Undetected (Undetected)
== END 2023-05-08 13:45 | DRG 603 ==
LOC: ED 14:50 → EDHOLD 14:50 → SUATTDRO 18:46 → EDHOLD 22:38 → MEDTELE 22:57
PROVIDERS: ADMIT Student in an Organized Health Care Education/Training Program; ATTEND Internal Medicine

== ENCOUNTER 2024-09-17 14:28 | Inpatient (IN) ==
[2024-09-17 14:56] LABS: ABS Eosinophils 0.1 10^3/uL (0.0-0.5); ABS Lymphocytes 1.1 10^3/uL (1.0-4.8); ABS Neutrophils 7.7 10^3/uL (1.5-7.6); ABS Nucleated RBC 0.01 10^3/ul; Hematocrit 42.1 % (35-45); Hemoglobin 14.1 g/dL (11.5-14.3); Lymphocyte % 10.8 %; Mean Corpuscular Hemoglobin 30.5 pg (27-33); Mean Corpuscular Hgb Conc 33.4 g/dL (31-36); Mean Corpuscular Volume 91.3 fL (80-97); Mean Platelet Volume 8.3 fL (7.5-11.2); Nucleated Red Blood Cells % 0.1 %/100WBC (0.0-0.8); Platelet Count 243 10^3/uL (150-450); Red Blood Count 4.61 10^6/uL (3.63-4.92); Red Cell Distribution Width 14.3 % (12-17); White Blood Count 9.8 10^3/uL (3.8-11.8)
[2024-09-17 15:11] LABS: Activated Partial Thrombo Time 45.1 seconds (26.0-38.0); INR 1.45 (0.85-1.14)
[2024-09-17 15:32] LABS: Albumin 3.5 g/dL (3.2-5.2); Albumin/Globulin Ratio 1.6 (1-3); Calcium 10.4 mg/dL (8.6-10.3); Creatinine, Serum 0.9 mg/dL (0.51-0.95); Direct Bilirubin 0.1 mg/dL (0.03-0.18); Globulin 2.2 g/dL (2-4); HDL Cholesterol 51.2 mg/dL; Indirect Bilirubin 0.5 mg/dL (0.3-1.0); Total Bilirubin 0.6 mg/dL (0.2-1.0); Total Protein 5.7 g/dL (6.4-8.9); eGFR CKD-EPI 61.1 (>60)
[2024-09-17 16:09] LABS: Urine Appearance Turbid; Urine Bilirubin Negative (Negative); Urine Blood 2+ (Negative); Urine Color Light-Yellow; Urine Glucose Negative (Negative); Urine Ketones Negative (Negative); Urine Nitrite Negative (Negative); Urine Protein Trace (Negative); Urine Specific Gravity 1.011 (1.002-1.030); Urine Urobilinogen Negative (Negative); Urine pH 6.5 (5.0-8.0)
[2024-09-17 16:13] LABS: Urine Amorphous Crystals Present /HPF (Absent); Urine Bacteria 1+ /HPF (Absent); Urine Red Blood Cell 3+(>10/hpf) /HPF (0-Trace); Urine Squamous Epithelial Cell Present /HPF (Absent); Urine White Blood Cell 3+(>20/hpf) /HPF (0-Trace)
[2024-09-17 19:57] LABS: C Reactive Protein 15.62 mg/L (<8.01)
[2024-09-17 20:13] LABS: TSH Ultra Thyroid Stim Horm 0.93 mcIU/mL (0.34-5.60)
[2024-09-17] MEDS: cefTRIAXone 1 gm/50 mL D5W 1 GM/50 ML BAG IV SCH (20:57)
[2024-09-18 06:21] LABS: ABS Lymphocytes 0.6 10^3/uL (1.0-4.8); ABS Monocytes 0.6 10^3/uL (0.0-0.9); ABS Neutrophils 9.1 10^3/uL (1.5-7.6); ABS Nucleated RBC 0.01 10^3/ul; Eosinophil % 0.3 %; Hematocrit 40.9 % (35-45); Hemoglobin 14.1 g/dL (11.5-14.3); Lymphocyte % 5.4 %; Mean Corpuscular Hemoglobin 31.5 pg (27-33); Mean Corpuscular Hgb Conc 34.6 g/dL (31-36); Mean Corpuscular Volume 91.1 fL (80-97); Mean Platelet Volume 8.1 fL (7.5-11.2); Nucleated Red Blood Cells % 0.1 %/100WBC (0.0-0.8); Platelet Count 223 10^3/uL (150-450); Red Blood Count 4.49 10^6/uL (3.63-4.92); White Blood Count 10.3 10^3/uL (3.8-11.8)
[2024-09-18 06:37] LABS: Calcium 10.3 mg/dL (8.6-10.3); Creatinine, Serum 0.84 mg/dL (0.51-0.95); Magnesium 1.9 mg/dL (1.9-2.7); Potassium 3.8 mmol/L (3.5-5.0); eGFR CKD-EPI 66.4 (>60)
[2024-09-18 09:11] LABS: Urine Appearance Turbid; Urine Bilirubin Negative (Negative); Urine Blood 1+ (Negative); Urine Color Yellow; Urine Glucose Negative (Negative); Urine Ketones Negative (Negative); Urine Nitrite Negative (Negative); Urine Protein Trace (Negative); Urine Specific Gravity 1.011 (1.002-1.030); Urine Urobilinogen Negative (Negative); Urine pH 6.5 (5.0-8.0)
[2024-09-18 09:30] LABS: Urine Bacteria 1+ /HPF (Absent); Urine Red Blood Cell 3+(>10/hpf) /HPF (0-Trace); Urine Squamous Epithelial Cell Present /HPF (Absent); Urine White Blood Cell 3+(>20/hpf) /HPF (0-Trace)
[2024-09-18] MEDS ORDERED: Lorazepam PYXIS KEY PRN (14:45)
[2024-09-18] MEDS: LORazepam 2 mg VIAL 1 ml IV PUSH ONE (14:52)
[2024-09-18] MEDS: cefTRIAXone 1 gm/50 mL D5W 1 GM/50 ML BAG IV SCH (21:58)
[2024-09-19 07:13] LABS: ABS Eosinophils 0.2 10^3/uL (0.0-0.5); ABS Lymphocytes 0.8 10^3/uL (1.0-4.8); ABS Monocytes 0.8 10^3/uL (0.0-0.9); ABS Neutrophils 9.7 10^3/uL (1.5-7.6); Eosinophil % 1.6 %; Hematocrit 40.2 % (35-45); Hemoglobin 13.8 g/dL (11.5-14.3); Lymphocyte % 6.7 %; Mean Corpuscular Hemoglobin 31.6 pg (27-33); Mean Corpuscular Hgb Conc 34.3 g/dL (31-36); Mean Corpuscular Volume 92.2 fL (80-97); Mean Platelet Volume 8.7 fL (7.5-11.2); Platelet Count 203 10^3/uL (150-450); Red Blood Count 4.36 10^6/uL (3.63-4.92); Red Cell Distribution Width 14.2 % (12-17); White Blood Count 11.5 10^3/uL (3.8-11.8)
[2024-09-19 07:38] LABS: Creatinine, Serum 0.81 mg/dL (0.51-0.95); Potassium 3.6 mmol/L (3.5-5.0); eGFR CKD-EPI 69.3 (>60)
[2024-09-22 07:12] LABS: ABS Eosinophils 0.3 10^3/uL (0.0-0.5); ABS Lymphocytes 0.7 10^3/uL (1.0-4.8); ABS Monocytes 0.6 10^3/uL (0.0-0.9); ABS Neutrophils 6.7 10^3/uL (1.5-7.6); Eosinophil % 3.6 %; Hemoglobin 13.6 g/dL (11.5-14.3); Lymphocyte % 8.5 %; Mean Corpuscular Hemoglobin 31.1 pg (27-33); Mean Corpuscular Volume 91.6 fL (80-97); Mean Platelet Volume 8.6 fL (7.5-11.2); Platelet Count 205 10^3/uL (150-450); Red Blood Count 4.36 10^6/uL (3.63-4.92); Red Cell Distribution Width 14.3 % (12-17); White Blood Count 8.3 10^3/uL (3.8-11.8)
[2024-09-22 07:29] LABS: Calcium 9.6 mg/dL (8.6-10.3); Creatinine, Serum 0.75 mg/dL (0.51-0.95); Potassium 3.7 mmol/L (3.5-5.0); eGFR CKD-EPI 76.1 (>60)
[2024-09-24 10:00] VITALS: BP 95/72
[2024-09-24 11:14] LABS: Rapid COVID-19 Molecular Undetected (Undetected)
== END 2024-09-24 12:30 | DRG 689 ==
LOC: ED 14:28 → EDHOLD 14:28 → MED 09-18 11:54 → SUATTDRO 09-18 12:00 → MED 09-18 12:19
PROVIDERS: ADMIT Student in an Organized Health Care Education/Training Program; ATTEND Hospitalist